=== PATIENT | female | born 1955 | race Caucasian/White ===

== ENCOUNTER 2024-05-08 08:25 | Outpatient (OUT) | payer MEDICARE, SELFPAY ==
--- NOTE | 2024-05-08 08:44 | VEIN_ITS ---
Patient Name: EMMIE PINTO MR#: [id number] : 1955 Exam Date: 05/08/2024 Ordering Doctor: DR POLY SANTIZO M.D. RADIOLOGY REPORT PROCEDURE: VC EXT VENOUS REFLUX JULY LMTD COMPARISON: None. INDICATIONS: I83.813 Pain due to varicose veins of bilateral legs TECHNIQUE: Duplex imaging of the lower extremity to assess the deep and superficial venous system for the presence of deep or superficial venous incompetence and to document the location and severity of disease. The study includes evaluation of the great saphenous vein (GSV), anterior accessory saphenous vein (AASV) and small saphenous vein (SSV). Patient scanned in reverse Trendelenburg and standing. FINDINGS: RIGHT LOWER EXTREMITY: Saphenofemoral Junction Reflux: Yes 10.1mm 2.0 sec GSV: Diam (mm) Reflux/ Time (sec) Proximal Thigh 8.4 Yes 3.6 Mid Thigh 5.5 Yes 0.5 Distal Thigh 6.0 Yes 1.1 Prox Calf 3.6 Yes 2.0 Mid Calf 3.5 Yes 1.7 Saphenopopliteal Junction Reflux: 1.5mm Yes 0.3 SSV: Proximal Calf 3.2 Yes 0.4 Mid Calf 3.6 No AASV: Proximal Thigh 6.3 Yes 1.6 Mid Thigh 3.9 Yes 1.3 Distal Thigh Thrombi: No acute or chronic thrombus. Compressibility: Normal. Flow: Minimal deep venous reflux. Preforator: Distal medial lower leg 3.3 mm with 0.3s reflux. Tech Note: Soft tissue area anterior/lateral knee in area of lump measures 1.0 x 0.9 x 0.8 cm. Fluid collection medial popliteal fossa measures 4.0 x 2.2 x 2.0 cm. Incompetent varicose vein proximal/medial lower leg measures 4.0 mm with 2.8s reflux. LEFT LOWER EXTREMITY: Saphenofemoral Junction Reflux: Yes 11.7 mm 1.1 sec GSV: Diam (mm) Reflux/Time (sec) Proximal Thigh 7.4 Yes 0.7 Mid Thigh 5.6 Yes 0.6 Distal Thigh 5.9 Yes 4.3 Prox Calf 4.8 Yes 4.9 Mid Calf 3.3 Yes 1.3 Saphenopopliteal Junction Relux: 5.6 mm Yes SSV: Proximal Calf 5.8 Yes 0.7 Mid Calf 4.0 Yes 2.2 AASV: Proximal Thigh 5.5 Yes 2.0 Mid Thigh 3.1 Yes 4.8 Distal Thigh Thrombi: No acute or chronic thrombus. Compressibility: Normal. Flow: Severe deep venous reflux. 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 Mid medial lower leg 3.4 mm with 1.0s reflux. Anterior medial knee 3.3 mm with 0.5s reflux. Tech Note: Anechoic area medial popliteal fossa measures 1.4 x 1.3 x 1.2 cm. Incompetent varicose vein anterior medial knee measures 3.6 mm with 0.6s reflux. Varicose vein mid medial thigh measures 4.2 mm with 1.7s reflux. CONCLUSION: 1. Abnormally dilated and incompetent right great saphenous and anterior accessory saphenous veins with multiple associated branch saphenous varicosities. 2. Abnormally dilated and incompetent left great saphenous, small saphenous, and anterior accessory saphenous veins with multiple so she did branch saphenous varicosities. Dictated by: Mateo Valerio M.D. on 05/08/2024 at 14:39 Approved by: Mateo Valerio M.D. on 05/08/2024 at 14:46
--- NOTE | 2024-05-08 08:44 | VEIN_ITS ---
Patient Name: EMIME PINTO MR#: [id number] : 1955 Exam Date: 05/08/2024 Ordering Doctor: DR POLY SANTIZO M.D. RADIOLOGY REPORT PROCEDURE: FACILITY [facility] - OFFICE VISIT INITIAL COMPARISON: None. PROGRESS NOTES: [age] year old female who presents with a 40 year history of dilated bulging veins, leg cramping, leg pain. The patient's right leg symptoms are worse than the left. There has been a progression of symptoms over time. This increases with prolonged leg dependency. The patient describes an improvement with rest, elevation, exercise, and support stockings. The patient denies any signs and symptoms to suggest arterial ischemia. The patient describes a family history diabetes type 2. The patient has drinking and smoking history of : Occasional alcohol consumption; no tobacco use. Patient has a past medical history significant for diabetes, migraine headaches, syncope. The patient denies a history of deep venous thrombus or pulmonary embolus. See separate history and physical for medication list. No prior treatment for varicose or spider veins. Prior treatment has consisted of use of compression stockings. After review of nurse notes, history and physical exam I discussed at length the pathophysiology of venous hypertension and possible treatments, therapies and strategies available. We discussed at length the importance of elevating the lower extremities above the level of the heart, increased physical activity and compression stocking use. Ultrasound venous reflux study performed today was discussed at length with the patient. The report demonstrates abnormally dilated and incompetent bilateral great saphenous veins, bilateral anterior accessory saphenous veins, and left small saphenous vein. Numerous bilateral abnormally dilated incompetent branch saphenous varicosities. PHYSICAL EXAM: The right leg demonstrates several varicosities, scattered spider veins, no ulceration, mild edema, no skin discoloration. The left leg demonstrates several varicosities, scattered spider veins, no ulceration, mild edema, no skin discoloration. Both thighs, legs and feet were symmetrically warm to the touch. Good posterior tibial and dorsalis pedis pulses were present bilaterally. VEIN/ Facility [facility] IMPRESSION: 1. Bilateral lower extremity venous insufficiency 2. Bilateral lower extremity varicose veins 3. Very mild bilateral lower extremity subcutaneous edema 4. No known flow significant arterial disease 5. CEAP: C2, EP, , AR PLAN: 1. Continued use of compression stockings 2. Elevated legs and increased physical activity symptomatic relief 3. Endovenous laser ablation of right great saphenous, left great saphenous, right anterior accessory saphenous, left anterior accessory saphenous, and left small saphenous veins. 4. Microfoam chemical ablation of bilateral lower extremity incompetent branch saphenous varicosities. 5. Bilateral lower extremity sclerotherapy for spider veins. Nurse notes, history and physical were reviewed and confirmed, see attached forms. The nurse was present throughout the physical exam and consultation Dictated by: Mateo Valerio M.D. on 05/08/2024 at 14:47 Approved by: Mateo Valerio M.D. on 05/08/2024 at 14:52
== END 2024-05-08 08:26 | disposition home or self-care (01) ==
LOC: VC 08:28
PROVIDERS: PCP Radiology Diagnostic Radiology; Visit Provider Radiology Diagnostic Radiology
DX: I83.813 Varicose veins of bilateral lower extremities with pain (principal)
CPT/HCPCS: 93970; G0463

== ENCOUNTER 2024-06-24 09:07 | Outpatient (OUT) | payer MEDICARE, SELFPAY ==
--- NOTE | 2024-06-24 08:00 | VEINCLINIC_ITS ---
Vital Signs 06/24/24 08:01 06/24/24 09:37 Height 4 ft 8 in Weight 56.699 kg BMI 28.0 BP 118/54 BP Location Right Brachial BP Position Sitting BP Cuff Size Adult BP Source Manual Cuff Respiration 18 Pulse 74 Pulse Source Monitor Pulse Oximetry (%) 97 Oxygen Delivery Method Room Air Varicose Veins Patient in this day for EVLT of right GSV Edson Page MD personally performed the services described in this documentation, as scribed by Ozzy Tomlin RN in my presence and it is both accurate and complete. IOzzy RN, am scribing for, and in the presence of, Dr. Edson Conner and in the presence of the patient.. knee: bilateral (Patient symptomatic varicose vein bilateral), calf: bilateral, ankle: bilateral and napoles: bilateral aching, cramping, dull and tender 8 40 years Worsened in recent months: Yes standing elevating extremities, compression stockings and exercise Reports muscle spasms of leg, heaviness and edema History of lower extremity trauma: No Superficial thrombophlebitis: No Family history of varicose veins: yes Has patient had previous lower extremity venous surgery: No Patient has previously received the following treatment(s) for lower extremity varicose veins: Reports none Does patient have a history of : yes Does patient intend to have future pregnancies: no Has patient had lower extremity venous scan with relux testing: No Support hose used: Yes Problems walking or doing physical activity: Yes How does it affect you: often has to rest and elevate legs secondary to pain Do you walk much: Yes Do you stand much: Yes Review of Systems ROS Narrative Edson Page MD personally performed the services described in this documentation, as scribed by Ozzy Tomlin RN in my presence and it is both accurate and complete. Ozzy Page RN, am scribing for, and in the presence of, Dr. Edson Conner and in the presence of the patient. Status of ROS 10 or more systems reviewed and unremark able except as noted in history and below Cardiovascular Reports: edema Integumentary/Breast Reports: itching, redness and changes in skin color Hematologic/Lymphatic Reports: easy bruising and easy bleeding [facility] Medical History (Updated 06/24/24 @ 08:22 by Ozzy Tomlin) Phlebitis of superficial vein of right lower extremity ?I80.01 - Phlebitis and thrombophlebitis of superficial vessels of right lower extremity (ICD-10) Thrombophlebitis of right saphenous vein ?I80.01 - Phlebitis and thrombophlebitis of superficial vessels of right lower extremity (ICD-10) Meniscal injury ?S83.8X9A - Sprain of other specified parts of unspecified knee, initial encounter (ICD-10) Migraine ?G43.909 - Migraine, unspecified, not intractable, without status migrainosus (ICD-10) Diabetes 1.5, managed as type 2 ?E13.9 - Other specified diabetes mellitus without complications (ICD-10) Pain due to varicose veins of both lower extremities ?I83.813 - Varicose veins of bilateral lower extremities with pain (ICD-10) Surgical History (Updated 06/24/24 @ 08:13 by Ozzy Tomlin) History of tonsillectomy and adenoidectomy ?Z90.89 - Acquired absence of other organs (ICD-10) Family History (Updated 06/24/24 @ 08:14 by Ozzy Tomlin) Sister Family history of cancer Mother Family history of diabetes mellitus Varicose veins of bilateral lower extremities with pain Social History (Updated 06/24/24 @ 08:15 by Ozzy Tomlin) Within the past year, how often did you have a drink containing alcohol: monthly or less Smoking status: Never smoker Non-prescribed substance use: denies use Meds Home Medications and Allergies Allergies Allergy/AdvReac Type Severity Reaction Status Date / Time ibuprofen Allergy Unknown Unknown Verified 06/19/24 15:59 Exam Narrative Exam Narrative: Edson Page MD personally performed the services described in this documentation, as scribed by Ozzy Tomlin RN in my presence and it is both accurate and complete. Ozzy Page RN, am scribing for, and in the presence of, Dr. Edson Conner and in the presence of the patient. Constitutional Documenting provider has reviewed patient's vital signs: yes Common normals: oriented x3 Cardio Peripheral pulses: dorsalis pedis pulses present Extremity Common normals: normal capillary refill General: edema Right lower extremity: lower leg Right lower leg: inspection and palpation Left lower extremity: lower leg Left lower leg: inspection and palpation Neuro Common normals: oriented x3 Assessment and Plan Assessment and Plan (1) Pain due to varicose veins of both lower extremities: (2) History of tonsillectomy and adenoidectomy: (3) Phlebitis of superficial vein of right lower extremity: Plan f/u evaluation along with right leg limited u/s following EVLT of right GSV IEdson MD personally performed the services described in this documentation, as scribed by Ozzy Tomlin RN in my presence and it is both accurate and complete. I, Ozzy Tomlin RN, am scribing for, and in the presence of, Dr. Edson Conner and in the presence of the patient. Procedures Procedure Instructions Procedures Plan of care: Risks and benefits of the procedure were discussed at length and informed written consent was obtained.? Time-out completed for verification of correct patient, procedure and site.? Staff present during time-out: Ozzy Tomlin RN,? Edson Conner MD, [facility] Time Out Time__958 Patient prepped and procedure performed in usual sterile fashion. Risk of injury related to use of Diode laser and/or laser devices __CR___ ? Serial number of laser used :? [id number] Control panel self test performed, electrical cords in good condition, floor is dry, basin of water available, fire extinguisher in close proximity_CR__ Polycarbonate goggles available and Laser warning signs outside of doors___CR__ Eye protection provided to patient and staff in room_CR___ Use of laser retardant drapes and dull blackened instruments as directed__CR___ Use of nonflammable prep solutions and use of saline soaked sponges to protect tissues as indicated _CR___ Length _46__ cm Laser operated by _Dr. Conner____ Physician verbal confirmation laser locked in place__CR__ Laser start time (date and time) _06/24/2024@_1012____ Laser stop time(date and time) __06/24/2024@_1017___ Velazquez _8.0___ Average laser use __2049__Joules Average laser use_256___seconds Pulse continuous ___CR_? Pulse intermittent ___ Amount of Tumescent used _175cc___ Evaluated patient for signs and symptoms of electrical injury __CR___ Skin clear at insertion site __CR___ Patient tolerated procedure well.? Left leg Coban dressing applied to access site.? Applied Left thigh high leg compression stocking. Will return on 07/01/2024 for right leg limited venous ultrasound and exam. IEdson MD personally performed the services described in this documentation, as scribed by Ozzy Tomlin RN in my presence and it is both accurate and complete. I, Ozzy Tomlin RN, am scribing for, and in the presence of, Dr. Edson Conner and in the presence of the patient.
[2024-06-24 08:01] VITALS: BMI 28.0
--- NOTE | 2024-06-24 08:19 | W.VEIN ---
Discharge Plan Discharge Disposition: Home, Self-Care Outpatient Diagnostics: VC Facility EST LMTD (Routine) Timeframe: 2 Weeks Facility: [facility] - Location: Vein Center Ordered By: Edson Conner VC EXT Venous RT LMTD (Routine) Timeframe: 2 Weeks Facility: [facility] - Location: Vein Center Ordered By: Edson Conner Follow Up Appointments: 07/01/2024@0930 Plan of Treatment: f/u evaluation along with right leg liimited u/s Print Language: Chadian Discharge Date/Time: 06/24/24 09:46
--- NOTE | 2024-06-24 09:10 | VEIN_ITS ---
The [address] [address] Patient Name: EMMIE PINTO MRN: [id number] date: 1955 Sex: F Assigned Patient Location: Current Patient Location: Accession/Order Number: [id number] Exam Date: 06/24/2024 09:20 Report Date: 06/24/2024 10:42 At the request of: POLY SANTIZO Procedure: VC Endovenous Ablation 1VeinRT EXAMINATION: VC Endovenous Ablation 1Vein, right great saphenous vein HISTORY: I83.813 Painful varicose veins COMPARISON: No relevant comparison available. TECHNIQUE: The risks and benefits of the procedure had been previously discussed, and were rediscussed at length. Informed written consent was obtained. Laura Mcqueen and Ozzy Tomlin assisted. Time out procedure was performed. The right lower extremity was prepared and draped in the usual sterile fashion to allow knee flexion in the sterile field. Duplex ultrasound probe was draped in a sterile cover, sterile transmission gel was used. Venous mapping was performed with the areas of dilation and large tributaries marked. The total length was 46 cm from the entry 8 cm above the medial malleolus to 3 cm below the saphenofemoral junction. The diameter of the greater saphenous vein ranged from 5-9 mm. A 30 gauge needle and 1% buffered lidocaine was used to anesthetize the entry site. A 4 mm incision was made with a scalpel and the saphenous vein was entered percutaneously under direct ultrasound guidance with a micropuncture set, a single stick was successful in gaining access. A micro-guide wire was inserted and the needle removed. A micro-set including a dilator was inserted over the microwire and the needle and dilator were removed. A 0.018 guide wire was inserted through the micro-set and threaded through the saphenous vein to the saphenofemoral junction. The dilator was removed and an introducer sheath was inserted over the wire until the end of the sheath entered the saphenofemoral junction. The dilator and wire were removed and the 600 micron fiber was introduced and placed and positioned so that it extended beyond the sheath and was 3 cm peripheral to the saphenofemoral femoral junction. Final position of the fiber was determined by ultrasound guidance and duplex imaging. Tumescent anesthetic was delivered by ultrasound guidance. 175 cc of fluid was delivered along the entire course of the saphenous vein. The solution consisted of 1000 cc of normal saline with 40 mL of 1% lidocaine and 20 mL of sodium bicarbonate. A final positioning check was made. The energy source was turned on by means of the foot pedal and the fiber and sheath were withdrawn. The total number of Joules delivered was 2049. The laser was active for 256 seconds under continuous pulse, average laser use of 8 J. Laser start time 10:12 AM 06/24/2024 . Laser stop time 10:17 AM 06/24/2024 . A duplex ultrasound revealed compressibility and flow at the saphenofemoral junction immediately after the procedure. Hemostasis at the access site was achieved. The skin incision of the saphenous vein was closed with a 4 x 4. A compression stocking was applied. Postop instructions were given. A follow up appointment was recommended and scheduled. The patient tolerated the procedure well and was discharged in good condition . VEIN/VC Endovenous Ablation 1VeinRT IMPRESSION: Technically successful endovenous laser ablation of the right great saphenous vein Electronically authenticated by: POLY SANTIZO Date: 06/24/2024 10:42
--- OUTSIDE RECORDS SUMMARY | 2024-06-24 09:23 | XMS_ITS | CCD ---
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 Measurements this Visit (last charted value for your 07/09/2023 visit) Vital Signs This Visit Temperature Oral: 36.8 DegC Peripheral Pulse Rate: 82 bpm Respiratory Rate: 18 br/min Systolic Blood Pressure: 140 mmHg Diastolic Blood Pressure: 80 mmHg SpO2: 96 % Oxygen Therapy: Room air Blood Pressure Method: Automatic Measurements This Visit Weight Measured: 58.97 kg Problems List: Problem Onset Comments Asthma Migraine Patient Education Bee, Wasp, or Hornet Sting, Adult Bees, wasps, and hornets are part of a family of insects that can sting people. These stings can cause pain and inflammation, but they are usually not serious. However, some p (more content not included)... Normal [facility] US PVR Lower EXT Complete Bi laton 06-07-2023 US PVR Lower EXT Complete Bilat Exam Date/Time: 06/06/2023 08:14 EDT Reason for Exam: I73.89 E11.9 G62.89 N79.671 Report IMPRESSION: NO EVIDENCE OF SIGNIFICANT ARTERIAL STENOTIC DISEASE INVOLVING THE RIGHT AND LEFT LEGS. CLINICAL HISTORY: I73.89 E11.9 G62.89 N79.671. COMPARISON: None available. FINDINGS: On the right, the brachial systolic pressure is 136 , the high thigh pressure is 184 , the low thigh pressure is 181 , the calf pressure is 148 , the posterior tibial ankle pressure is 155 , the dorsalis pedis ankle pressure is 144 , and the digit pressure is 127 . The high thigh-brachial index is 1.35. The ankle-brachial index at the posterior tibial artery is 1.14 The dorsalis pedis-brachial index is 1.06. The toe-brachial index is 0.93, with normal 0.7 or greater. The plethysmography waveforms are normal. On the left, the brachial systolic pressure is 128 , the high thigh pressure is 146 , the low thigh pressure is 160 , the calf pressure is 146 , the posterior tibial ankle pressure is 132 , the dorsalis pedis ankle pressure is 157 , and the digit pressure is 114 . The high thigh-brachial index is 1.07. The ankle-brachial index at the posterior tibial artery is 0.97 The dorsalis pedis to brachial index is 1.15, with normal 1.0 or greater. The toe-brachial index is 0.84, with normal 0.7 or greater. Report The plethysmography waveforms are normal. Ordering Provider: JESSE CONRAD FINAL REPORT Dictated: 06/07/2023 3:04 pm Arturo Higgins MD Signed (Electronic Signature): 06/07/2023 3:04 pm Signed by: Arturo Higgins MD Transcribed by: CHAUNCEY Technologist: HUGH Normal [facility] Consent for Treatmenton Consent for Treatment [id number] D:127 Normal [facility] Physician Orderon 05-29-2023 Physician Order [id number]#[id number] D:[address] [facility] Coding Summaryon 02-07-2023 Coding Summary HTMLBase 64 LgffdlgwYSi1xWp+PGhlYWQ +ZA7SFSViH65eaVOtkL9PQ3 oGBU4XFCORMIWCOQ2APO5zv OE0FKusH4HsodUg PewefAGoIA33WZy8JXM1eTs dWMkdpD1ziBRvS6v0YoEjEG 06sW61GMtnALTyQqP2CnLeq jsgbWFy K1rlGyRtxDCsRuz+PHRhYmx lIHdpZHRoPScxMDAlJyBzdH hoOF5kLf6pRGIeDHUyyEjpm HNlOiBj r7rnJFJySUlaFU0ltAsyA5D uzUS2DUSuf4j9Ht51hEA+PH UaUSG5aYupSOrjp050EgNuo 6odEEN0 hZWlAUwbATA2T01af2P9DRC qUQDxBJG2qNQ2uY1xmDqxgh usO7RfkQXpFxL9GLU6iIXlw B2tbDyv afrarR2vIgh+B28CHX4GKQK ORH0QDbu8D7DyMwixoFX+PC 65LNEmSU01hRVuaJQfo8owr Db3HcXh JQRzTDQ6ePslABtjf7OhFDW iQ58ujIAeg8U3QJItlSsahG OnScDqpKA0gX8rOHkuhvffd 2hvdzsn Gedzl2wqtw51bH05Y82bDWo gOPZxFQW6LCLmNNRnlSwnfr 3nvM1mIa7+LAnev2nwf4zdj Ky6FkHu LFMqfuQbbJluDFO5b5SbPi1 3X8AyoHqwv0YiKpz1py45mB Uou5R8pBI7XBlcRMHvoN7cY WxlZnQ6 SFVxKiQevA28rIKgGCsyFi3 pfRdfuLnsUY6lXLOujkyxNA YntV3pYFCfnGLpfWjdON6uH TBpbjtm h829VvVqZYL0GSNtyJGkI0S ajY4sQrHzNZDnIBUiD2AyeH JcRLoiJ727RCyvOlJ6JCAaq nNjB4Yf VUKzpYmdKhX4n5L5Qq4Sx4J xqavxVKQ6VTueWCPyOrU4Vv BhOxE1D4ClFpw3HVOdnUscV S5sW3Ws DWUamitupunjpIF4VZCgRCR yfQ99wVBuPFbpBq8es5Y6k1 38BDAjBTSnuE39Oa6gcTpvP TBwdCBU lH6qkujli0sdsdjfDaSiEIN vHVh1CXn1GJDupThwAkFsJO I6LjN7WIP9uTPejX8fgIeqg qnroV5q Oyc+B91xbF6lFRA8VFA7glj pBKAskrRiXC61YM66S6OqOm wvdGFibGU+PGRpdiBzdHlsZ F1uJtHg c5ecx8KiSVyuG7XsNPYfCZu iQei7PZTwUSP9yZM5cY2hUD IhKJykl3Y4gYP4B6PgurCjm w2tz8yw FJUgLXlbV36ltKBxk8I5EMS iwZG4ZOTrdCzvPyBheX99Qj c+AAYmkZfny2EuGafwj6qbb 0ujjBx2 OnGbHVUtiqIhuJkrNFD5n1Z lAa83L88hXLklIMKnTMPfNA CzZLQdkKpkgc0isU2pYa4+P GNvbCB3 jXI5aJ3zXUTuVnE7QVquH12 5NrCphKJhTwcft0rrs4xfoB m5MzRlIGOaakAqnLnhGIV9h 8RsNb04 S24bERwfWPWgOMRrXPPqQLG grSztdp8zjX8gTa3+PC9jb2 hfkf93iX00yHF+JSYdGPA4w WxlPSdw IMZroC7qPFboVbV9NENgWpW rqQ32zHYtIZwbQg0xuVtsuQ dfRW9mSISylqqqy326LqTub 2xkIDEw zTJpTRvnGUP8Q74sa6W9PTA jWDKtMPD7yZY8mH1fzLwqan ogbGVmdDsgdmVydGljYWwtY HtiZ426 IHRvcDsnPlBhdGllbnQgTmF bULs0H6CtRnj2KKXznSkgWI 1aoXHvUZcxSl4moPemeGhyQ T4gNLKv ldftm352VrOuf4mfBARybOX wYLecJUK4L03ew0L3DGSgUL AtVNV3uUX8iV6vkIsyhjegx GVmdDsg fzGvcBfsXStsJMafJ548KGU uaCypXeQrirNeUJXsfNX9OZ 41HN60wPZzz7N6oXO7B5RqZ GRpbmct cvjfzQZ7HIAfNLErxU17Fk0 gxAnbIz8tTUEgCPA0FDXriW MnO5YvrG2fYfWyGEMuZCLjE 3RleHQt NVztQ998IQqcVhC0KPPcsqX bA8XtXTEuyWbjNeQ1p1D3Xd 4QT8S6BR74CU15xAVhz8Y1p LJ8Z9Ab UTGoozcfkgvwnUJ3FUGpUFV doR13Rj0feZouKd6oPWQoGP H7WHShpCQhF7YpiO7pCrSpK DAwMDAw F8DerVOaSEgfK839SQquGvN 5RHFzmlZeG6NdNSTrqKxmEr P5o8K9Zr7CPJs4VQ46UG58o QHju5I6 mYY4A5ShPBApvztoqgutxFL 5YCDiMCDtwW84Ox6cwVenVf 4sFEPwEVE4SPLsqLEjM3Sdl V6cUgEy YFTqIIPiA4FosRPcRZonP12 5VVqoHgT8UGLjfvOsX3HfMA OhbWzyHmU3e3O5Xd6LVKBbX E09KTS0 vZW8RR64DC08E9YsIbrzrMZ ibGU+PHRhYmxlIHdpZHRoPS hyNQJbLnNkcLdwDJ4yGd6wD GVyLWNv iUobqZDzQrRob5xuMFJnVVs bEB4hiPlpE4KysDV5SUYhb9 e7Ls76G24aB9VzdRP+PGNvb PU4dBX1 hG0uRtAnBnP6EExwS774GgY zdWCqTcdbz5ciq5gdbYs4Uo Q4NBWxhpDhaLorQLR8m5MrI x29R42o IHdpZHRoPSIxNSUiIHZhbGl ysk6hvP3aNc4+TUVffAX1bT I1fO4gCfVjDlR8NLaxN398E nRvcCIv Xkcek5jox2cpzId2NdDuPIP qgkPzuOncFXW8p9ZnIq78V6 AjhRwvh5MsTor5yx22vOJqo 1B1kPW9 L3YjPICdkkjypDVmpLccAO6 eGRWhevtdXVGmzM4eRYJzB1 v0NdVyAdC6XEagZ4CtguB0M DEwcHQg XJqhLZK8E46uy6D2UNWtKBI dXXL3vDN7eV4muZuhjsjctN VmdDsgdmVydGljYWwtYWxpZ 246IHRv kEjsJJXdvA3kTJEthELblBy fMW3iNUExnfjzScyGH5VSZg LSOXJLGULTG0EaDLbfwDO+P HRkIHN0 vSozIUnkLMLkaR2sDZHaO3n 9WeOtPxF5CZayH5PpJRMfiv vgYq05vH0pMzFnClM6PDnxB 5DbohO3 QUOddDRaKMfoHBP8H66la2D 1OPDcPVNhINU6dMU3xH4ibU lnbjogbGVmdDsgdmVydGljY WwtYWxp Y332RGQemOutUkFbPuG4SqB 1HTZ1R2XtGie6JKLykAikRB 8vdNHjRDmkQn5suKprbNabL G7tTPZy ccbaMIWhkR6dUQBwyBJpcBz lKA0eSQGszvtwz929TuNjAC S1TDQyjLOdZ2XwsI1gFuEvK DAwMDAw Y6OxrFArGDysM626NUwcNcD 8BSSmgiTcM1KvGXNilOvkJs U2f1I0Od72GjOSVARleqcuz GQ+PHRk QEF3zCbkPAlwARJvsM0dSHD gF0k7TzVeAvL9QWacN1InWM EzryauQr16gN7pTiPjRcE3Y OboE7Cp xuW8JOEkzQXoWEogYZS2I83 xp6I2JEEnITPfVKF3yIM0vY 1hbGlnbjogbGVmdDsgdmVyd GljYWwt QEfqC772XHZdkCgsGjPYMBN MRTwvdGQ+KHEtZBG1zDavDR kpQQXdmK1hOYStP3y4RhJxP jN6ZWnm P5OqZDBcgnleHn01sV2vGhG mLsR5FEmzQ6NlayS6NSVizE EyQLldYUU3B76jk9H8DOKhH DAwMDA7 bTT4qK6mwBbdbylqqUPwzMf bagKgfPttPHglZHkcQ821VH RugSbvYa6OHK77NG85J7HwS jwvdGFi bGU+PHRhYmxlIHdpZHRoPSc eMHQaRcVnoDutSZ0gQi9mIO OkWFMzzLimzYWiFlYkq1hhY XBzZTsg WA5arAlwL0VxlPN9FITis5h 8Er25R91oZ7RltHV+PGNvbC Z3bXM8nR9rUlPvCkU0EBiuK 249InRv cLHkQnorq3nog1goyRd9XuP kHFAdbkErnHtgETY8p4BjUl 85I55qXQzvBMUeDZKiLFLqS HZhbGln xo9oxL9eZv5+BSIpdXW3rWO 3mD4oLnWhHvL4NWpfD931Jb WvaREvExitX81aG3EgoHO+P HRyPjx0 QIWpsGswKW2izTPaHJfqPo6 nMYZ0RgNzJjFqMTxtU0HyJI XyshedadkluTX7XOBjUVXln A85Gd8k wRqjQo6wGDBvAFJ6ULAwfCA hT9HgbH9jDcLxEAEfRLYhK9 GmtHKsJCzlS713OXziFqW9Z HZlcnRp W2TmGJTunGjmNkL0l7R3Wn2 MwGnxpTHpJT8bXsUmZAc8O2 DaSob7JFTbbLcvMS7niHIlJ AfcFt6b rAbigFtkPP9eKQCgkjdna31 1EbGiw4jtTGXwnUKjOChuJF T0G20mg4C7RMSfODFhJLQ3q QS3uN2e bGlnbjogbGVmdDsgdmVydGl eNQddFUhfF834DPQjoBrkMh GLPna4Z0AkBbw9IFAjiCesZ K7leANe XIzjIc2fuIamrLukHE0lOLV tmzcil090QpBsv8ckXDZmcZ AnTZqsAPD8I19uz3F6ZQZgG DAwMDA7 mXQ7rL9vkRwibniktENlxNx ivfYniGdxXRkpDOoxI769XA NqjUbuZh4YHjb3N1OvIym8K CBzdHls CF0kuYOfWLzqKv3quQsgoWg fIK6rMRJrrmebm345ZmKct4 anOKZcqUGlMGhaMZQ1J66tv 3H1QEBi HMDhXLH7lLC3jU3orIqhquu gbGVmdDsgdmVydGljYWwtYW ukF215XFCxrGtdZkFooQFfG jwvdGQ+ UE66dv19P6PlVmdyQle5MYJ jNKK3iZP5kL1dSHRfSKdxp0 I4bNZ8D9VinrKnhi0zf0aqJ XBzZTog Y29 (more content not included)... [facility] Coding Summaryon 02-04-2023 Coding Summary HTMLBase 64 WfmbcgqlKMs5pFl+PGhlYWQ +JV7WZWYcY10ayIKqkS3BN5 wHFP1MWMCCQNVXWD6XAJ2am AJ5MPocT4FgbgRs EtfwfTLkVD14CUx3FFD6uBc gXYwzmY1ynLCqG5w3HjIfKU 36bX44GVvcGWFtQqP3GgPag jsgbWFy F7qeGfFwvGQyHka+PHRhYmx lIHdpZHRoPScxMDAlJyBzdH skVM3rFs0eEYJxHSQsaUpjq HNlOiBj y9wnSGEcGGkxED0vhAekM6C yvJB1LKHxo1y8He91aSV+PH KzSUG9gKwxBBhpq779KpLgd 3yzZKL7 jPBjRPafUTP6X42sb0L3TNI hYTJuAHH2vQP4hZ5jeSwmll lmL4TjpRZeErV9AKL8qWQjq D5igVjj eyrkhU1jGnf+V49LUH6SMJM CKH3EAzi0D2UtSfxzfJS+PC 68NABoXM09wITwzMWzb7aeq Tj6VcBh PPCnLDA2lSnwUPmzg3SgGTM tM45exPJrl4U6VJClqMxoxW AjJvUagDJ7pI7iXUuqfijym 2hvdzsn Twioq8nagd45tN96X53bPOa tOFBwODL7YSGfKMXrhQmdqr 4ptA4yZj3+KPobw0evo6nre Un8SpYz LJWwmoTdxPdiZBV7p1CaQe7 3G0SxkVkro0EfWoi6zj44pT Rjd3X8qOA9PBytUYWizW6xX WxlZnQ6 ZSZwOkBzaW23eHYmRYxmMg4 niUxqkGfgPH9wEBIiiwtrYQ NnyP2xSYAgfYIdxTvqZT6vV TBpbjtm i494LwBgYGT2GLUwySFtO1H pvL3vYaPdJBUwEXNuO7IlqP WyKSqeO496NGunMyJ0HRVot wLbW8Cz VOEbvBmvGcL8y9G6Of9Bk0D bkssyFBI2MQadYWXxJjL3Tv BvVyE2Z4OhIgx2ZDFnoCilE F4xQ6Tq PVAlzxnsjuiujDK2GZAjKTP liO63sBSoWZofUy4gk9S7z3 88NRXrIMHemS10Ea5seDxpC TBwdCBU kS0fwhgfy0awbhqaQhYaWXV bFLw3UIq6GPReyOcnDbMtBX F4AfU6GPD9eLSsgU4imCivn jirzD1k Oyc+T04xiZ6kCGU9FEF2tnx fMIGslqYqHG95NF89Q2MjEa wvdGFibGU+PGRpdiBzdHlsZ P2vJwTu g4zya8QdRTopI9JsCDByUQc lLpc6CVPsAXF6mSI7gM0oHW YxIPbml4V6tUD7S6YxncBgu i8wu5yk HFRgRHwmB02lfHKfu8P6XNC poLH0ZFNghHidTkHgkI11Lf c+CYMbeHwco3ViJfkgu3hdc 7syuMd8 PgGvVKUbbkPwlThfEKF6e0J iKw01X30oKNczJFAePKHrGI IgGRZmzLxbjh0wxT7bBr3+P GNvbCB3 xWH6sA9lLIJyXrT9ACddU66 9PpNugMCyVvwms0ude8edaH z4ZxPgXBClryJriLpiPTE2f 8IrOl87 S65lUVdyAKFdTAVvGHBhPUQ xzHnodn4ubU0sYq1+PC9jb2 aqpj83vE79fAI+QWBxRCK3i WxlPSdw WASlfX4hNGkgRiD0PMGpSeP iqO11aYDaTDhiHf1kwBdwfY btAT0uRIUezewds622MtPsx 2xkIDEw xZPmNWotDTK5M22ds5R7ESK oJDUaHBZ5lYX9jU0afXuczz ogbGVmdDsgdmVydGljYWwtY IlmL895 IHRvcDsnPlBhdGllbnQgTmF dTTs4H9AgRst7PRJqpUdvJT 3ylOJwROwjRu5ruYgshGcaL T9aMFPj mcuzm322GpGlf6jkNWZgkOR yUTqbYVC0G64dg6S7WIJbKI AaPCX0eRO0oN4gwNjxihtdy GVmdDsg jkEmyYokTGpvOMjzK276ALJ roFjpTbWgvhFzBVFwmOZ2EN 15BW92yPCzt3F5xYZ0U7YdL GRpbmct qubmbCX3BBIsKXNblM76Mf6 wuPauMc5uKGMnWHH6WHUoyT TsJ5NreJ2wFsSpACDhPBIzG 3RleHQt PFgzQ201HUdaWoB1WIPxmkX uE9UcLOKdhSfwBmF8a7Q4Sq 4MB0C4FO49GH69aGTll6S5r HX4Q5Fd UDNfskvyjllwhOD3CAWzKES yhX71Mb1epUvrCk6bRGJrUR H1IVJwgVYfB9YnwA7oZyLqO DAwMDAw J7RngKCuVZlsU134FGnoAhH 6KPPeozEcA1IcCNPgwBdgLu Z5s2J9Zz9PBJb9PL20GA79v BTur2A9 uAR1O9NeLWKifnmzgxmvvUB 8AFXmGRQdgU11Wl2gpHjfEl 2oEFMwCTP0DQFszJOvF0Rsq P0wHwPg ZRKvQNQxU4WzkAYyNWwsB77 5YUsbFoF2XYYxmcZuV4FhSX JjaQeiTtQ1n8I0Pb3CXHLuF C83LWM4 iFJ9ZS95TE18V4VcRaixaHB ibGU+PHRhYmxlIHdpZHRoPS zbMZSxNiLjtXiaSM7wSu5cM GVyLWNv eBaoaQHsHxOvh0ldWQEeMEl eOI3ehJfiW1VtuKW5CIMoa2 t8Fv41W98qD6RgoKN+PGNvb GK0zLL7 fL3aSfFjSfB3DRexF178RwC kbBPaGqmly6vho5iwkFu9Kq W9QPIgksAnlDmaFMT2o4JjU w24N99o IHdpZHRoPSIxNSUiIHZhbGl hhv9xrW8gPw9+CGUnfUW8zP E8cZ2eJeVaRyR6LDjlG089T nRvcCIv Wgtlz4wdc6grtCj5YoQeBTN snbEngPtgWDP2g0EcKh22G0 DrbWfmv5JxWfh9od63qXPff 0R3kMB0 G3OkCCOildovpCHhyJsgPQ9 nJPKhwkmvMFMkmP6hAPPsT0 a3RbOxSdG6ZExgQ7MwvvV6L DEwcHQg RYuvNGK0Z48iw0G3KAKiXZR pNVM5fLM7dV9uuGvgqlibrZ VmdDsgdmVydGljYWwtYWxpZ 246IHRv rYnjGFEuoB4oOJJfkPDopEr mKF9dQYCzbgblOrrWC3TKCl LNNGQKVIKBF4UyQPnnzIS+P HRkIHN0 qGrhWBvvEKUzgS9mHDRvS7b 5EkIiScD7IVtnL7WxYTBsxb twLl38pB0pJbViMkJ5PVvmH 5VtvdH8 UHMdiURvSFuqRJF1P93mp3R 6ZEQeMESoBWC0cMD7gD6woF lnbjogbGVmdDsgdmVydGljY WwtYWxp T378INYolPonFlGwYaA2JkP 6IGQ0D2RwDhg8IYMkgHnoQO 3lcLFoKRwbVb0qzOxqdTzsT S5sRBYq ybriOMNviM5wQJGwoHRkiNd zOZ2uZYOvbuqio673JkJaDN N1WEZtsPRoP2NxnF0cUnPiC DAwMDAw L8YkgCHfMSpvG533JJjfZjM 0OPMxenGfM7WwYIYtnAdyTu K9u5V4Jb17ZtSTWAUdeiezz GQ+PHRk MJV4bDqkLMwkHANtaO3lWXE rV5m4MfQfSaU7OKkhA5RrIP AapdgjKu79bG6eAsPzCkO9J HdcQ8Rw yvB5WOYhkFAuOMesZSI2R77 si3Z4KUJlLGOdUHM4mHW2nG 1hbGlnbjogbGVmdDsgdmVyd GljYWwt TGfbR395LWVyjHsrKsROZLF MRTwvdGQ+IFDsQPB4hBoyFZ zlWCSyjC3hIMRkD6z2XsHtB sE4BGzr R8ZmGQRngcuzJk91nS4eBqE fXmJ2RIohL9DjepI9VPWxoW KaKVihYWU4B68eq5F2DEPwF DAwMDA7 dDT5vH4viHgdkdjqwNYxiNi pzsIypRsvINrpVWkeB012GY RrqBdxKp7PHK82PW19F3RcT jwvdGFi bGU+PHRhYmxlIHdpZHRoPSc tQWLeSmJicOztZE7rDw2sCL AzLAMciLxjtZOfNkZbv8qgM XBzZTsg EO6dwWscG9CybVF6XYMla4m 1Sp08H45kT0WrjCM+PGNvbC R7iGN1hP6fDxDqVxX4OFpsY 249InRv rPOoKqtxi0qfe9cicPp0JnG kATYrmuDpqGydAPQ3o5LlZt 70B08lXDkuUTRkYTAtCFJaB HZhbGln dr0xzE1zNk6+EWYujOL0cER 3pV2iYkWwUtZ9BZamT067Oe UaqDViZshkG03wX7CfhPQ+P HRyPjx0 JPIvsLnlNL0ggXScMUpaAh2 uSBQ3DtOtZpFpIGjdV3CoIU WucwefkadlbPV2ZUZdYQBug E14Ox2p hQhfYw1bRCJqPVJ1MHCegHU zB9FpiW0pYnZqVHTaFUBeW4 KkqBMsJGuvO361XDvmFcM0V HZlcnRp B8BeVLJuiLgpZyG3f5E9Nh6 DuEsaaKJzOW9lCrEzIQf7O0 KzPpt5GTLjcLrvLE6ldLZxZ PcuDu9i wSqrdHzdET2dHKSkxhpad69 3PyTkz4bvXUSdcDCzJDgoDR Z6B46df4W8ESGnRPHmJKH9d BL4cW9p bGlnbjogbGVmdDsgdmVydGl wNRtuBXbwS289GCMpnVkhMf HFEdl0I7IhCjq3EIJohEajN Y0iaOEc PDnrDw2zvRshcRwfNH6zOEG niorno255XdEvw1egLRKyqZ GdUWkeCHD1N62bq1R7FCIfA DAwMDA7 aOT6kG3rxUdaewbqwYIgdIo darCxyTzfSPxbGIreL376OE DflRmaOr4JVqa1H7EqNgq3F CBzdHls HV1pwWDgCFvvIe5enSjppZs eMR3hKLJnysyvv139XhBcc4 esXVLboKQeTRhhRZE1O01th 0T0UAVb YAUoLEN2hOA2lO2utLjidbp gbGVmdDsgdmVydGljYWwtYW esJ644VWSyrIaeWpOneLZyG jwvdGQ+ WJ02ax47H4ZkCytwQck8NLZ cSHI3xXV9wU7yXQXzAPsoz0 U3bZA1I6DtloExmy1td0fgP XBzZTog Y29 (more content not included)... Normal [facility] C Urineon 02-02-2023 C Urine Urine Culture ordere d as a result of parameters set on specific urine dip and urine microsopic results. >3 Organisms Consistent with Contamination Recollection suggested. [facility] Comment on above: Performed By: #### [id number] ####[facility] (DEFAULT)[address] [place] [id number] Provider Orderson 02-01-2023 Provider Orders [id number] TGTIFF Normal [facility] .Auto Diff 1on 01-31-2023 Auto [place] % 8 % Normal -12 [facility] Comment on above: Performed By: #### 1 [id number], 6507175, 4821407, 1001399, 61836533, 5914904, 0325561 ####[facility] (DEFAULT)[address] [place] [address] 59958 Baso Abs# 0.0 x10 Normal 0.0-0.2 [facility] Comment on above: Performed By: #### 1 4544794, 0631469, 8306308, 2345411, 64695796, 1439185, 2770358 ####[facility] (DEFAULT)[address] [place] [address] 67115 Basophils/100 WBC (Bld) 0.6 % Normal 0.2-2.0 [facility] Comment on above: Performed By: #### 1 1288769, 5299008, 6969044, 7144977, 95596783, 6199457, 1427329 ####[facility] (DEFAULT)[address] [place] [address] Eos Abs# 0.1 x10 Normal 0.0-0.4 [facility] Comment on above: Performed By: #### 1 4106192, 1872044, 5440766, 2825830, 37170331, 5318418, 9166007 ####[facility] (DEFAULT)[address] [place] [address] Eosinophils/100 WBC (Bld) 1.8 % Normal 0.9-4.0 [facility] Comment on above: Performed By: #### 1 9489969, 4716725, 3969941, 5259368, 83614270, 4304155, 4328739 ####[facility] (DEFAULT)[address] [place] [address] Lymph Abs# 2.0 x10 Normal 1.3-2.9 [facility] Comment on above: Performed By: #### 1 4465344, 9786550, 3665566, 6987634, 12400596, 7180423, 5401307 ####[facility] (DEFAULT)[address] [place] [address] Lymphocytes/100 WBC (Bld) 37 % Normal 14-48 [facility] Comment on above: Performed By: #### 1 5934669, 7735576, 5577964, 8464281, 87379330, 3965778, 2383534 ####[facility] (DEFAULT)[address] [place] [address] [place] Abs# 0.4 x10 Normal 0.0-0.8 [facility] Comment on above: Performed By: #### 1 2613270, 3018640, 2326475, 4254174, 09026356, 6279620, 7348850 ####[facility] (DEFAULT)[address] [place] [address] Neut Abs# 3.0 x10 Normal 1.5-9.2 [facility] Comment on above: Performed By: #### 1 3393108, 0484538, 7492360, 5836169, 61335369, 4907348, 4694596 ####[facility] (DEFAULT)[address] [place] [address] Neutrophils/100 WBC (Bld) 53 % Normal 44-88 [facility] Comment on above: Performed By: #### 1 2717561, 4378912, 5964634, 8997917, 57533804, 9491856, 0447444 ####[facility] (DEFAULT)[address] [place] [address] CBC w/ Auto Diffon 3 Erythrocyte distribution width (RBC) [Ratio] 13.0 % Normal 11.5-15.0 [facility] Comment on above: Performed By: #### 1 3891922, 5300503, 1873934, 2836348, 98243357, 0605426, 5261247 ####[facility] (DEFAULT)[address] [place] [address] Hematocrit (Bld) [Volume fraction] 39.5 % Normal 33.7-40.4 [facility] Comment on above: Performed By: #### 1 3902620, 8034547, 0907911, 1064871, 79710084, 2361206, 6080610 ####[facility] (DEFAULT)[address] [place] [address] Hemoglobin (Bld) [Mass/Vol] 13.4 g/dL Normal 11.3-15.9 [facility] Comment on above: Performed By: #### 1 8014476, 0356557, 5779765, 0913077, 32626224, 7867706, 6592035 ####[facility] (DEFAULT)[address] [place] [address] Man Diff? Auto Invalid Interpretation Code [facility] Comment on above: Performed By: #### 1 2696255, 5920567, 1278972, 3333692, 58244633, 6599369, 1447526 ####[facility] (DEFAULT)[address] [place] [address] MCH (RBC) [Entitic mass] 32 pg Normal 24-34 [facility] Comment on above: Performed By: #### 1 8141468, 9670464, 6902128, 5173040, 15172842, 4272007, 3511426 ####[facility] (DEFAULT)[address] [place] [address] MCHC (RBC) [Mass/Vol] 34 g/dL Normal 26-37 [facility] Comment on above: Performed By: #### 1 3812865, 8240206, 2774026, 3600631, 05801458, 6233239, 4609814 ####[facility] (DEFAULT)[address] [place] [address] MCV (RBC) [Entitic vol] 95 fL Normal 81-100 [facility] Comment on above: Performed By: #### 1 2298355, 6231412, 7361016, 9328356, 11947019, 8685358, 8190237 ####[facility] (DEFAULT)[address] [place] [address] Platelet 252 x10 Normal 138-427 [facility] Comment on above: Performed By: #### 1 8878227, 0052098, 3419683, 9754451, 94943713, 9980864, 8209423 ####[facility] (DEFAULT)[address] [place] [address] Platelet mean volume (Bld) [Entitic vol] 7.5 fL Normal 6.3-10.2 [facility] Comment on above: Performed By: #### 1 5955383, 6059102, 8708378, 9600661, 49131265, 8767089, 9144534 ####[facility] (DEFAULT)[address] [place] [address] RBC 4.18 x10 Normal 3.70-5.30 [facility] Comment on above: Performed By: #### 1 7946972, 4250246, 9031067, 7263730, 64170563, 9864746, 0321815 ####[facility] (DEFAULT)[address] [place] [address] WBC 5.6 x10 Normal 3.5-10.5 [facility] Comment on above: Performed By: #### 1 5439022, 9953209, 0921623, 3509215, 25148961, 6256379, 3641161 ####[facility] (DEFAULT)[address] [place] [address] ED Clinical Summaryon 2022 ED Clinical Summary [facility] ? [facility] Care [address] [place] [address] Clinical Summary PERSON INFORMATION Name: CHANTELLE PINTO Age: 68 Years Sex: FEMALE : 1955 MRN: Acct#: Visit Reason: UC - Sinus Pain or Congestion; UC - Sinus Pain or Congestion; SINUS DRAINAGE, CONGESTION Arrival: 01/31/2023 17:31:19 Discharge: 01/31/2023 18:41:00 LOS: 000 01:10 Check In: 01/31/2023 17:31:19 Checkout: 01/31/2023 18:41:00 Address: [address] [place] [address] PCP: Luis lAfredo Grande PROVIDER INFORMATION Provider Role Assigned Unassigned Josiane Haddad CABLE SPOOLER Nurse 01/31/2023 17:34:23 Deuce Hernandez ED PA 01/31/2023 17:36:10 VITALS INFORMATION Vital Sign Triage Latest Temperature Tympanic Temperature Temporal Artery Pulse Rate O2 Sat 96 % 96 % Respiratory Rate Blood Pressure /78 mmHg /78 mmHg MEDICAL INFORMATION Medications Given: Allergy Information: LORazepam; Amoxil PHYSICIAN DOCUMENTATION DISCHARGE INFORMATION: Discharge Disposition: Home Discharge Location: Home PATIENT EDUCATION INFORMATION Instructions: Sinusitis, Adult, Cqgn-[id number]; Otitis Media, Pediatric, Mhsz-yw-Tgti Follow-Up: With: Address: When: Luis Alfredo Grande [address] [place] [address], [address] [place] [phone] Business (1) Comments: Azithromycin as an antibiotic to 2 tabs day 1, then 1 tab daily thereafter until gone Nasacort nasal spray has been provided for you use 1 spray each nostril daily Follow-up with primary care provider in 3-5 days sooner if worse. DIAGNOSIS: Right otitis media; Sinus congestion Patient Understands: Yes - Patient/family/caregive r verbalizes understanding of instructions given Comment: Normal [facility] ED Patient Summaryon 023 ED Patient Summary [facility] ? [facility]gent Care [address] [id number] PATIENT DISCHARGE INSTRUCTIONS Patient Information Name: CHANTELLE PINTO Age: 68 Years Date of : 1955 Reason For Visit: UC - Sinus Pain or Congestion; UC - Sinus Pain or Congestion; SINUS DRAINAGE, CONGESTION Arrival Time: 01/31/2023 17:31:19 Primary Care Physician: Luis Alfredo Grande Attending Physician: Deuce Hernandez Comment: Patient Education With: Address: When: Luis Alfredo Grande [address] [place] [address], [address] [place] [address] Business (1) Comments: Azithromycin as an antibiotic to 2 tabs day 1, then 1 tab daily thereafter until gone Nasacort nasal spray has been provided for you use 1 spray each nostril daily Follow-up with primary care provider in 3-5 days sooner if worse. Sinusitis, Adult Sinusitis is soreness and swelling (inflammation) of your sinuses. Sinuses are hollow spaces in the bones around your face. They are located: ? Around your eyes. ? In the middle of your forehead. ? Behind your nose. ? In your cheekbones. Your sinuses and nasal passages are lined with a fluid called mucus. Mucus drains out of your sinuses. Swelling can trap mucus in your sinuses. This lets germs (bacteria, virus, or fungus) grow, which leads to infection. Most of the time, this condition is caused by a virus. What are the causes? This condition is caused by: ? Allergies. ? Asthma. ? Germs. ? Things that block your nose or sinuses. ? Growths in the nose (nasal polyps). ? Chemicals or irritants in the air. ? Fungus (rare). What increases the risk? You are more likely to develop this condition if: ? You have a weak body defense system (immune system). ? You do a lot of swimming or diving. ? You use nasal sprays too much. ? You smoke. What are the signs or symptoms? The main symptoms of this condition are pain and a feeling of pressure around the sinuses. Other symptoms include: ? Stuffy nose (congestion). ? Runny nose (drainage). ? Swelling and warmth in the sinuses. ? Headache. ? Toothache. ? A cough that may get worse at night. ? Mucus that collects in the throat or the back of the nose (postnasal drip). ? Being unable to smell and taste. ? Being very tired (fatigue). ? A fever. ? Sore throat. ? Bad breath. How is this diagnosed? This condition is diagnosed based on: ? Your symptoms. ? Your medical history. ? A physical exam. ? Tests to find out if your condition is short-term (acute) or long-term (chronic). Your doctor may: ? Check your nose for growths (polyps). ? Check your sinuses using a tool that has a light (endoscope). ? Check for allergies or germs. ? Do imaging tests, such as an MRI or CT scan. How is this treated? Treatment for this condition depends on the cause and whether it is short-term or long-term. ? If caused by a virus, your symptoms should go away on their own within 10 days. You may be given medicines to relieve symptoms. They include: ? Medicines that shrink swollen tissue in the nose. ? Medicines that treat allergies (antihistamines). ? A spray that treats swelling of the nostrils.? ? Rinses that help get rid of thick mucus in your nose (nasal saline washes). ? If caused by bacteria, your doctor may wait to see if you will get better without treatment. You may be given antibiotic medicine if you have: ? A very bad infection. ? A weak body defense system. ? If caused by growths in the nose, you may need to have surgery. Follow these instructions at home: Medicines ? Take, use, or apply glym-tzo-jxnxhcc and prescription medicines only as told by your doctor. These may include nasal sprays. ? If you were prescribed an antibiotic medicine, take it as told by your doctor. Do not stop taking the antibiotic even if you start to feel better. Hydrate and humidify ? Drink enough water to keep your pee (urine) pale yellow. ? Use a cool mist humidifier to keep the humidity level in your home above 50%. ? Breathe in steam for 10?15 minutes, 3?4 times a day, or as told by your doctor. You can do this in the bathroom while a hot shower is running. ? Try not to spend time in cool or dry air. Rest ? Rest as much as you can. ? Sleep with your head raised (elevated). ? Make sure you get enough sleep each night. General instructions ? Put a warm, moist washcloth on your face 3?4 times a day, or as often as told by your doctor. This will help with discomfort. ? Wash your hands often with soap and water. If there is no soap and water, use hand airflight attendants supervisor. ? Do not smoke. Avoid being around people who are smoking (secondhand smoke). ? Keep all follow-up visits as told by your doctor. This is important. Contact a doctor if: ? You have a fever. ? Your sym (more content not included)... Normal [facility] Ferritinon 01-31-2023 Ferritin [Mass/Vol] 33.1 ng/mL Normal 12.0-150.0 [facility] Comment on above: Performed By: #### 1 [id number], [id number], 5583433, 7836551, 89727712, 6729630, 4257351 ####[facility] (DEFAULT)[address] [place] [address] Iron Profileon 01-31-2023 Iron [Mass/Vol] 107.0 ug/dL Normal 28.0-170.0 [facility] Comment on above: Performed By: #### 1 [id number], 6059574, 6727820, 9305321, 55690373, 8645135, 9213130 ####[facility] (DEFAULT)[address] [place] [address] Iron Sat 30 % Normal 20-55 [facility] Comment on above: Performed By: #### 1 8851568, 4617563, 1981827, 1739215, 94831031, 3348519, 6660388 ####[facility] (DEFAULT)[address] [place] [address] TIBC 353 mcg/dL Normal 250-400 [facility] Comment on above: Performed By: #### 1 9462666, 7390890, 8978530, 7901356, 07570255, 9315217, 5479784 ####[facility] (DEFAULT)[address] [place] [address] Transferrin [Mass/Vol] 252.1 mg/dL Normal 192.0-382.0 [facility] Comment on above: Performed By: #### 1 9833060, 1710517, 3592408, 4159537, 00777342, 8251607, 1833419 ####[facility] (DEFAULT)[address] [place] [address] TSHon 01-31-2023 TSH Qn 2.38 m[IU]/L Normal 0.45-5.33 [facility] Comment on above: Performed By: #### 1 4072774, 3239242, 5440328, 0303612, 33198604, 7026581, 8974825 ####[facility] (DEFAULT)[address] [place] [address] UA Pvjqi7ay 01-31-2023 UA Bacteria 2+ [facility] Comment on above: Order Comment: Urina lysis Microscopic order added on by [employer] Expert Rules system. Performed By: #### 6 912354, [id number], [id number] ####[facility] (DEFAULT)[address] [place] [address] UA RBC 3-5 [facility] Comment on above: Order Comment: Urina lysis Microscopic order added on by [employer] Expert Rules system. Performed By: #### 6 031687, [id number], [id number] ####[facility] (DEFAULT)[address] [place] [address] UA Squam Epi Many Normal [facility] Comment on above: Order Comment: Urina lysis Microscopic order added on by [employer] Expert Rules system. Performed By: #### 6 068213, [id number], [id number] ####[facility] (DEFAULT)[address] [place] [address] UA WBC 5-10 [facility] Comment on above: Order Comment: Urina lysis Microscopic order added on by [employer] Expert Rules system. Performed By: #### 6 169620, [id number], [id number] ####[facility] (DEFAULT)[address] [place] [address] UA Yeast Rare [facility] Comment on above: Order Comment: Urina lysis Microscopic order added on by [employer] Expert Rules system. Performed By: #### 6 125118, [id number], [id number] ####[facility] (DEFAULT)[address] [place] [address] UA w Culture if Ind Standard on 01-31-2023 Breakpoint UA [facility] Comment on above: Performed By: #### 6 126369, [id number], [id number] ####[facility] (DEFAULT)[address] [place] [address] Color (U) Yellow [facility] Comment on above: Performed By: #### 6 907520, [id number], [id number] ####[facility] (DEFAULT)[address] [place] [address] Culture? Indicated Invalid Interpretation Code [facility] Comment on above: Result Comment: Resu lt created by rule GL_MAGR_ADD_UA_CULT Result created by rule GL_MAGR_ADD_UA_CULT Result created by rule GL_MAGR_ADD_UA_CULT1 Result created by rule GL_MAGR_ADD_UA_CULT Performed By: #### 6 826456, [id number], [id number] ####[facility] (DEFAULT)[address] [place] [address] Glucose (U) [Mass/Vol] Negative [facility] Comment on above: Performed By: #### 6 365050, [id number], 63582158 ####[facility] (DEFAULT)[address] [place] [address] Ketones Ql (U) Negative [facility] Comment on above: Performed By: #### 6 228054, [id number], 13250760 ####[facility] (DEFAULT)[address] [place] [address] Micro? Indicated Invalid Interpretation Code [facility] Comment on above: Result Comment: Resu lt created by rule GL_MAGR_ADD_UA_MICRO Performed By: #### 6 683532, [id number], [id number] ####[facility] (DEFAULT)[address] [place] [address] UA Bilirubin Negative Normal [facility] Comment on above: Performed By: #### 6 862296, [id number], 81133281 ####[facility] (DEFAULT)[address] [place] [address] UA Blood SMALL Abnormal NEGATIVE [facility] Comment on above: Performed By: #### 6 361997, [id number], [id number] ####[facility] (DEFAULT)[address] [place] [address] UA Clarity CLOUDY Abnormal CLEAR [facility] Comment on above: Performed By: #### 6 687282, [id number], [id number] ####[facility] (DEFAULT)[address] [place] [address] UA Leuk Est TRACE Abnormal NEGATIVE [facility] Comment on above: Performed By: #### 6 664533, [id number], [id number] ####[facility] (DEFAULT)[address] [place] [address] UA Nitrite Negative Normal [facility] Comment on above: Performed By: #### 6 645009, [id number], [id number] ####[facility] (DEFAULT)[address] [place] [address] UA pH 6.0 Normal 5-8 [facility] Comment on above: Performed By: #### 6 722439, [id number], [id number] ####[facility] (DEFAULT)[address] [place] [address] UA Protein Negative Normal NEGATIVE [facility] Comment on above: Performed By: #### 6 885707, [id number], 83437213 ####[facility] (DEFAULT)[address] [place] [address] UA Spec Grav 1.025 Normal 1.001-1.035 [facility] Comment on above: Performed By: #### 6 656609, [id number], 94510358 ####[facility] (DEFAULT)[address] [place] [address] UA Urobilinogen 0.2 mg/dL Normal 0.2-1.0 [facility] Comment on above: Performed By: #### 6 727768, [id number], 16642568 ####[facility] (DEFAULT)[address] [place] [address] Urine Source Clean Catch Normal [facility] Comment on above: Performed By: #### 6 301501, [id number], [id number] ####[facility] (DEFAULT)[address] [place] [address] Urgent Care Note- Provideron 01-31-2023 Urgent Care Note- Provider Patient: CHANTELLE PINTO Age: 68 years Sex: FEMALE : 1955 Associated Diagnoses: Right otitis media; Sinus congestion Author: Deuce Hernandez Basic Information Time seen: Date & time 01/31/2023 18:07:00. History source: Patient. History limitation: None. Additional information: Chief Complaint from Nursing Triage Note : Chief Complaint 01/31/2023 18:23 EST Chief Complaint Nasal drainage/congestion . History of Present Illness PT is a 68-year-old female presents for sinus pressure, right ear pain states feels like she is wheezing. No shortness of breath or difficulty breathing. No weakness or fatigue. No fever or chills. No headache. States bilateral ear pressure, pain in his teeth, pressure behind the eyes. Amoxicillin and lorazepam allergies. ROS Constitutional negative ENMT negative Resp negative Additional negative Physical exam General - alert no acute distress Skin - warm dry Head -normocephalic atraumatic Eye - normal conjunctiva ENMT - TMs bulging on right, no pharyngeal erythema or exudates, ttp of maxillary, frontal sinuses Neck - supple Cardiovascular - regular rate regular rhythm, no murmur, normal peripheral perfusion Respiratory - lungs clear to auscultation, nonlabored respirations, breath sounds equal Lymphatics - no lymphadenopathy Medical decision making Physical exam findings consistent with sinusitis. Patient will be treated with erythromycin and Nasacort. Pt denies any h/o cardiac issues, denies h/o high blood pressure. Follow-up with primary care provider in 7-10 days sooner if worse. Health Status Allergies: Allergic Reactions (Selected) Severity Not Documented Amoxil- Nausea. LORazepam- No reactions were documented.. Medications: (Selected) Documented Medications Documented cyanocobalamin 1000 mcg/mL injectable solution: 1,000 mcg = 1 mL, IM, qMonth, 30 mL, 0 Refill(s) ergocalciferol 1.25 mg (50,000 intl units) oral capsule: 50,000 International_Unit = 1 cap(s), PO, qWeek, 4 cap(s), 0 Refill(s) estradiol 0.1 mg/g vaginal cream: 0 Refill(s) metFORMIN 500 mg oral tablet: 500 mg, 1 tab(s), PO, BID, 0 Refill(s) rosuvastatin 10 mg oral tablet: 10 mg = 1 tab(s), PO, Daily. Past Medical/ Family/ Social History Medical history: No active or resolved past medical history items have been selected or recorded.. Surgical history: No active procedure history items have been selected or recorded.. Family history: No family history items have been selected or recorded.. Social history: Social & Psychosocial Habits Alcohol 07/22/2021 Alcohol Use: Never Substance Abuse 07/22/2021 Substance use: Never Tobacco 01/31/2023 Smoking tobacco use: Never tobacco user Electronic Cigarette/Vaping 01/31/2023 Electronic Cigarette Use: Never . Problem list: Active Problems (2) Asthma Migraine . Physical Examination Vital Signs Vital Signs 01/31/2023 18:23 EST Temperature Temporal 36.8 DegC Peripheral Pulse Rate 78 bpm Respiratory Rate 16 br/min Systolic Blood Pressure 110 mmHg Diastolic Blood Pressure 78 mmHg SpO2 96 % Oxygen Therapy Room air BP Method Manual . Measurements 01/31/2023 18:23 EST Height 137.16 cm Weight 58.97 kg Body Mass Index Measured 31.35 kg/m2 BSA Measured 1.5 m2 . Impression and Plan Diagnosis Right otitis media ([id number] H66.91, Discharge, Medical) Sinus congestion ([id number] R09.81, Discharge, Medical) Plan Prescriptions: Launch prescriptions Pharmacy: !-Nasacort AQ 55 mcg/inh nasal spray (Prescribe): 1 spray(s), Nasal, Daily, 16.5 gm, 0 Refill(s) azithromycin 250 mg oral tablet (Prescribe): See Instructions, Take 2 tabs day 1, one tab daily thereafter., 6 tab(s), 0 Refill(s). Patient was given the following educational materials: Otitis Media, Pediatric, Bcfy-fu-Bood, Sinusitis, Adult, Vmrt-ok-Dkjz. Follow up with: Luis Alfredo Grande Azithromycin as an antibiotic to 2 tabs day 1, then 1 tab daily thereafter until gone Nasacort nasal spray has been provided for you use 1 spray each nostril daily Follow-up with primary care provider in 3-5 days sooner if worse.. Counseled: Patient, Regarding diagnosis, Regarding diagnostic results, Regarding treatment plan, Regarding prescription, Patient indicated understanding of instructions. [Electronically Signed on: 01/31/2023 18:34 EST] Deuce Hernandez [Verified on: 01/31/2023 18:34 EST] Deuce Hernandez [facility] [address] Urgent Care Record [facility] ? Urgent Care [address] [place] [address] PATIENT DISCHARGE INSTRUCTIONS Patient Information Name: CHANTELLE PINTO Age: 68 Years Date of : 1955 Reason For Visit: UC - Sinus Pain or Congestion; UC - Sinus Pain or Congestion; SINUS DRAINAGE, CONGESTION Arrival Time: 01/31/2023 17:31:19 Primary Care Physician: Luis Alfredo Grande Attending Physician: Deuce Hernandez Comment: Visit Diagnosis: Diagnoses This Visit Right otitis media (H66.91) Sinus congestion (R09.81) UC - Sinus Pain or Congestion ([id number]) UC - Sinus Pain or Congestion ([id number]) If you received any narcotics, sedation, or any other medication that causes drowsiness for the next 24 hours, unless otherwise directed: ? Do not drive a car. ? Do not operate machinery such as power tools, lawn mowers, drills, sewing machines, or stoves ? Avoid alcoholic beverages and drugs for allergies, nerves, or sleep ? Do not make important personal or business decisions or sign any legal documents With: Address: When: [address], [address] [place] [address] Business (1) Comments: Azithromycin as an antibiotic to 2 tabs day 1, then 1 tab daily thereafter until gone Nasacort nasal spray has been provided for you use 1 spray each nostril daily Follow-up with primary care provider in 3-5 days sooner if worse. Medication Information: The exam and treatment you received today in the [facility] were for an urgent problem and are not intended as complete care. It is important for you to follow up with a doctor, nurse practitioner, or physician?s equity sales assistant for ongoing care. If your symptoms become worse or you do not improve as expected and you are unable to reach your usual health care provider, you should return to the Emergency Department, we are available 24 hours a day. For those patients who have received Radiology results, the interpretation of your X-ray as given to you by our Urgent Care physician is only a preliminary report. The Radiologist will review your films and if there is a change in the diagnosis you will be notified by phone. Please make sure you have provided a working phone number so we can reach you if necessary. In the event that you had a lab culture while you were a patient in the Urgent Care, you will be notified by phone if there is a need to change your antibiotic. Please make sure you have provided a working phone number so we can reach you if necessary. [facility] has provided you with a complete list of medications post discharge. Please inform your factory process workers/provider of your visit and for further instruction on these medications. Any specific questions regarding your chronic medications and dosages should be discussed with your primary care physician(s) and/or pharmacist. New Medications [facility], [address] [place], [place] [id number], [phone] azithromycin (azithromycin 250 mg oral tablet) Take 2 tabs day 1, one tab daily thereafter.. Refills: 0. triamcinolone nasal (!-Nasacort AQ 55 mcg/inh nasal spray) 1 spray(s) Nasal every day. Refills: 0. Additional medications on your home medication list not specifically addressed. Please contact the ordering physician if you have questions about these medications. cyanocobalamin (cyanocobalamin 1000 mcg/mL injectable solution) 1 Milliliter Intramuscular once a month. ergocalciferol (ergocalciferol 1.25 mg (50,000 intl units) oral capsule) 1 cap(s) Oral every week. estradiol topical (estradiol 0.1 mg/g vaginal cream) metFORMIN (metFORMIN 500 mg oral tablet) 1 tab(s) Oral 2 times a day. rosuvastatin (rosuvastatin 10 mg oral tablet) 1 tab(s) Oral every day. Visit Information Allergies: Substance Reaction Symptoms Type Comments Amoxil Nausea Drug LORazepam Drug Vital Signs: Vitals and Measurements this Visit (last charted value for your 01/31/2023 visit) Vital Signs This Visit Temperature Temporal: 36.8 DegC Peripheral Pulse Rate: 78 bpm Respiratory Rate: 16 br/min Systolic Blood Pressure: 110 mmHg Diastolic Blood Pressure: 78 mmHg SpO2: 96 % Oxygen Therapy: Room air Blood Pressure Method: Manual Measurements This Visit Height/Length Measured: 137.16 cm Weight Measured: 58.97 kg Body Mass Index: 31.35 kg/m2 BSA Measured: 1.5 m2 Problems List: Problem Onset Comments Asthma Migraine Patient Education Sinusitis, Adult Sinusitis is soreness and swelling (inflammation) of your sinuses. Sinuses are hollow spaces in the bones around your face. They are located: ? Around your eyes. ? In the middle of your forehead. ? Behind your nose. ? In your cheekbones. Your sinuses and nasal passages are lined with a fluid called mucus. Mucus drains out of your sinuses. S (more content not included)... Normal [facility] Vit B12 Lvlon 01-31-2023 Vit B12 1205 High 180-914 [facility] Comment on above: Performed By: #### 1 [id number], 3501854, 5737351, 3134201, 85200536, 5369028, 9017095 ####[facility] (DEFAULT)[address] [place] [address] Vit D25 OHon 01-31-2023 Vitamin D 25 OH 54 ng/mL Invalid Interpretation Code [facility] Comment on above: Performed By: #### 1 [id number], 0446463, 2645569, 5623255, 24960440, 1023849, 0905716 ####[facility] (DEFAULT)[address] [place] [address] Diagnostic Mammogram, Unilat eral Left w/Jose (3D)on 08-20-2022 Diagnostic Mammogram, Unilateral Left w/Jose (3D) CLINICAL HISTORY: Diagnostic Mammogram COMPARISON: Screening mammogram 08/07/2022. Other mammograms dating back to 2018. TECHNIQUE: 2D and 3D mammogram imaging of the left breast and left breast ultrasound was performed. RESULT: DENSITY: There are scattered areas of fibroglandular density. The asymmetry within the medial left breast is less apparent on the diagnostic views. Ultrasound is recommended. On the left breast ultrasound, there are no suspicious findings. Focal area of denser breast tissue surrounded by fatty tissue, probably correlating with the mammogram findings. No focal mass or lesion. IMPRESSION: BIRADS 2 : BENIGN FINDINGS, NORMAL INTERVAL FOLLOW UP. FOLLOW-UP: 12 months DENSITY: Scattered MAMMOGRAPHY IS VERY IMPORTANT TO YOUR HEALTH. THE CURRENT [place] [employer] OF [employer] AND NATIONAL COMPREH[employer]IVE [employer]WORK GUIDELINES RECOMMENDS ANNUAL MAMMOGRAPHY BEGINNING AT AGE 40 THIS FACILITY USES A REMINDER SYSTEM TO ENSURE ALL PATIENTS RECEIVE REMINDER NOTIFICATIONS AT THE APPROPRIATE TIME BASED ON THE RECOMMENDATIONS OF THIS EXAM. Board Certified Radiologist. Accredited by the ACR and FDA. Report reported and signed by Isaiah Tatum on 08/20/2022 1512 Normal [facility] Student Services Representative US Breast Limited, Lefton US Breast Limited, Left Refer to concurrent diagnostic mammogram dictation. Report reported and signed by Isaiah Tatum on 08/20/2022 1512 Normal [facility] Student Services Representative NM vito perf SPECT rest stron 08-09-2022 NM vito perf SPECT rest [facility] [place] [address] Nuclear Medicine Report Signed Patient: Chantelle Pinto MR#: [id number] [id number] : 1955 Acct:[id number] Age/Sex: 67 / F ADM Date: 08/08/22 Loc: NM Room: Type: DEP CLI Attending Dr: Luis Alfredo Grande MD Copies to: MD Luis Alfredo Lomas MD Ordering Provider: Luis Alfredo Grande MD Date of Service: 08/08/22 NM/NM vito perf SPECT rest str: R07.9 REFERRING PHYSICIAN: Luis Alfredo Gradne MD REASON FOR STUDY: Chest pain. PROCEDURE: The patient underwent 1-day rest/stress protocol. Rest images obtained by injecting 6.3 mCi of Cardiolite. Stress images obtained by injecting 19.2 mCi of Cardiolite. Subsequently, gated SPECT and ejection fraction studies were performed. IMAGING RESULT: This appears to be a fair study. It appears to be normal. There is no clear pattern of ischemia or myocardial infarction. Left ventricular ejection fraction appears normal, calculated at 75%. TID index normal at 0.76. CONCLUSION: 1. No clear pattern of ischemia or myocardial infarction. 2. Normal left ventricular systolic function and wall motion. 3. No previous study available for comparison. Transcribed By: CHRISTIAN 08/09/22 1210 Dictated By: Stacia Horner MD 08/09/22 1202 Signed By: 08/09/22 1302 Normal [facility] STR cardiac stress/cardiolon 08-09-2022 STR cardiac stress/cardiol [facility] [address] [place] [address] [id number] Cardiac Stress Test Signed Patient: Chantelle Pinto MR#: [id number] : 1955 Acct:[id number] Age/Sex: 67 / F ADM Date: 08/08/22 Loc: NM Room: Type: DEP CLI Attending Dr: Luis Alfredo Graned MD Copies to: MD Luis Alfredo Lomas MD Ordering Provider: Luis Alfredo Grande MD Date of Service: 08/08/22 STR/STR cardiac stress/cardiol: chest pain;Chest pain REFERRING PHYSICIAN: Luis Alfredo Grande MD REASON FOR STUDY: Chest pain. PROCEDURE: The patient underwent Cardiolite exercise stress test. The patient was able to exercise for a total of 7 minutes 1 second, achieving workload of 7 METs. Maximum heart rate was 153 beats per minute, corresponding to 99% of maximum predicted heart rate. Blood pressure and heart response to exercise was physiologic. This terminated secondary to fatigue. No chest pain was reported. Baseline ECG showed normal sinus rhythm with no ST-T changes. Following exercise, nondiagnostic changes were seen, no arrhythmias were observed. CONCLUSION: 1. Cardiolite exercise stress test with no diagnostic ST-T changes for ischemia. 2. No provoked chest pain or arrhythmia. 3. Appropriate hemodynamic response to exercise. 4. Good exercise tolerance. 5. Normal heart rate recovery phase. 6. Perfusion images will be dictated separately. Transcribed By: CHRISTIAN 08/09/22 1218 Dictated By: Stacia Horner MD 08/09/22 1208 Signed By: 08/09/22 1302 [facility] SCREENING MAMMOGRAM W/JOSE, BILATERAL*on 08-07-2022 SCREENING MAMMOGRAM W/JOSE, BILATERAL* EXAMINATION: Screening Mammogram CLINICAL HISTORY: Patient refused 3D total images. COMPARISON: Dating back to 02/28/2018 TECHNIQUE: 2D and 3D Tomosynthesis of the right and left breasts was performed. FINDINGS: There are scattered fibroglandular densities within each breast. There are no suspicious microcalcifications or areas of architectural distortion identified. No evidence of skin thickening. There are stable benign-appearing calcifications present. There are stable areas of asymmetric density present. No suspicious mass right breast. Left breast: Within the medial aspect of the left breast at 6.5 cm from nipple there is a focal asymmetric density. Recommend correlation with spot tomograms and possible sonogram for further workup. IMPRESSION: LEFT BREAST: BIRADS 0 : ADDITIONAL IMAGING EVALUATION NEEDED. RIGHT BREAST: BIRADS 2 : BENIGN FINDINGS, NORMAL INTERVAL FOLLOW UP. MAMMOGRAPHY IS VERY IMPORTANT TO YOUR HEALTH. THE CURRENT [place] [employer] OF RADI[employer] AND NATIONAL COMPREHENSIVE CANCER NETWORK GUIDELINES RECOMMEND ANNUAL MAMMOGRAPHY BEGINNING AT AGE 40. THIS FACILITY UTILIZES A REMINDER SYSTEM TO ENSURE ALL PATIENTS RECEIVE A REMINDER NOTIFICATION AT THE APPROPRIATE TIME BASED ON THE RECOMMENDATIONS OF THIS EXAM. BOARD CERTIFIED RADIOLOGIST. ACCREDITED BY THE [facility] AND FDA. Report reported and signed by Kika Cooney on 08/07/2022 1356 Normal [facility] Student Services Representative Comprehensive Metabolic Pane wyatt 03-06-2022 Albumin [Mass/Vol] 4.4 g/dL Normal 3.6-5.1 [facility] Student Services Representative Comment on above: Performed By: #### C DIAZ JAMES #### [facility] [address] [place], [place] [id number] Albumin/Globulin [Mass ratio] 1.7 {ratio} Normal 1.0-2.5 [facility] Student Services Representative Comment on above: Performed By: #### C DIAZ JAMES #### [facility] [address] [place], [place] [id number] ALP [Catalytic activity/Vol] 125 U/L High 35-[address] [facility] Specialist Comment on above: Performed By: #### C DIAZ JAMES #### [facility] [address] [place], [place] [id number] ALT [Catalytic activity/Vol] 27 U/L Normal 6-[address] [facility] Specialist Comment on above: Result Comment: 11/01 Female reference range changed. Performed By: #### C DIAZ JAMES #### [facility] [address] [place], [place] [id number] Anion gap [Moles/Vol] 19 mmol/L Normal 12-20 [facility] Student Services Representative Comment on above: Result Comment: Effe ctive 12/07/2019 reference range changed. Performed By: #### C DIAZ JAMES #### [facility] [address] [place], [place] [id number] AST [Catalytic activity/Vol] 27 U/L Normal 9-34 [facility] Student Services Representative Comment on above: Performed By: #### C DIAZ JAMES #### [facility] [address] [place], [place] [id number] Bilirubin [Mass/Vol] 0.37 mg/dL Normal 0.30-1.20 [facility] Student Services Representative Comment on above: Performed By: #### C DIAZ JAMES #### [facility] [address] [place], [place] [id number] BUN/CREA 28 Ratio High 6-[address] [facility] Specialist Comment on above: Performed By: #### C DIAZ JAMES #### [facility] [address], [place] [id number] Calcium [Mass/Vol] 9.4 mg/dL Normal 8.6-10.[address] [facility] Specialist Comment on above: Performed By: #### C ERIKA LIPMyah #### [facility] [address], [place] [id number] Chloride [Moles/Vol] 102 mmol/L Normal 98-[address] [facility] Specialist Comment on above: Performed By: #### C ERIKA, LIPD #### [facility] [address], [place] [id number] CO2 [Moles/Vol] 22 mmol/L Normal 20-[address] [facility] Specialist Comment on above: Performed By: #### C ERIKA, LIPD #### [facility] [address], [place] [id number] Creatinine [Mass/Vol] 0.5 mg/dL Low 0.6-1.[address] [facility] Specialist Comment on above: Performed By: #### C ERIKA, LIPD #### [facility] [address], [place] [id number] eGFRAA 140 mL/min/1.73m2 Normal >60 [facility] Specialist Comment on above: Performed By: #### C ERIKA, LIPD #### [facility] [address], [place] [id number] eGFRNAA 115 mL/min/1.73m2 Normal >60 [facility] Specialist Comment on above: Performed By: #### C ERIKA, LIPD #### [facility] [address], [place] [id number] Globulin (S) [Mass/Vol] 2.6 g/dL Normal 1.9-3.[address] [facility] Specialist Comment on above: Performed By: #### C ERIKA, LIPD #### [facility] [address], [place] [id number] Glucose [Mass/Vol] 170 mg/dL High 65-99 [facility] Student Services Representative Comment on above: Result Comment: For FASTING Glucose --- ADA reference ranges: Normal 65-99 mg/dl Prediabetes 100-125 Diabetes >/= 126 Performed By: #### C ERIKA, LIPD #### [facility] [address], [place] [id number] Potassium [Moles/Vol] 4.7 mmol/L Normal 3.5-5.5 [facility] Student Services Representative Comment on above: Performed By: #### C ERIKA LIPD #### [facility] [address], [place] [id number] Protein [Mass/Vol] 7.0 g/dL Normal 6.1-8.1 [facility] Student Services Representative Comment on above: Performed By: #### C ERIKA LIPD #### [facility] [address], [place] [id number] Sodium [Moles/Vol] 138 mmol/L Normal 135-146 [facility] Student Services Representative Comment on above: Performed By: #### C ERIKA LIPD #### [facility] [address], [place] [id number] Urea nitrogen [Mass/Vol] 15 mg/dL Normal 7-25 [facility] Student Services Representative Comment on above: Performed By: #### C ERIKA LIPD #### [facility] [address], [place] [id number] Hemoglobin A1Con 03-06-2022 EAG 177.[address] [facility] Specialist Comment on above: Performed By: #### A 1C #### [facility] [address], [place] [id number] HbA1c (Bld) [Mass fraction] 7.8 % High 4.0-6.0 [facility] Student Services Representative Comment on above: Performed By: #### A 1C #### [facility] [address], [place] [id number] Lipid Panelon 03-06-2022 Cholesterol [Mass/Vol] 271 mg/dL High 125-200 [facility] Student Services Representative Comment on above: Result Comment: Low risk < 200mg/dL Borderline risk 201-239 mg/dl High risk > or equal to 240 Performed By: #### C ERIKA LIPD #### [facility] [address], [place] [id number] Cholesterol in HDL [Mass/Vol] 44 mg/dL Normal >40 [facility] Student Services Representative Comment on above: Result Comment: High Cardiovascular Risk HDL <40 mg/dL Low Cardiovascular Risk HDL > or equal to 60 mg/dl Performed By: #### C ERIKA LIPD #### [facility] [address], [place] [id number] Cholesterol in LDL [Mass/Vol] 184 mg/dL Normal [facility] Specialist Comment on above: Result Comment: LDL ATP III CLASSIFICATION LDL less than 100 mg/dl Optimal LDL 100-129 mg/dl Near or above optimal LDL 130-159 Borderline high LDL 160-189 High LDL greater than 189 mg/dl Very High Performed By: #### C MP, LIPD #### [facility] [address], [place] [id number] Cholesterol in VLDL [Mass/Vol] 43 mg/dL Normal [facility] Specialist Comment on above: Performed By: #### C MP, LIPD #### [facility] [address], [place] [id number] Cholesterol.total /Cholesterol in HDL [Mass ratio] 6 {ratio} Normal [facility] Specialist Comment on above: Performed By: #### C MP, LIPD #### [facility] [address], [place] [id number] Triglyceride [Mass/Vol] 215 mg/dL High 30-150 [facility] Student Services Representative Comment on above: Result Comment: TRIG ATPIII CLASSIFICATIONS TRIG less than 150 mg/dl Normal TRIG 150-199 mg/dl Borderline High TRIG 200-500 mg/dl High TRIG greather than 500 mg/dl Very High Performed By: #### C MP, LIPD #### [facility] [address], [place] [id number] Q - ALK PHOSPHATASE ISOENZYM ESon 03-06-2022 ALP [Catalytic activity/Vol] 117 U/L Normal 37-[address] [facility] Specialist Comment on above: Order Comment: [facility] performed at: [facility], [place], [address] [address], [place], [place], , Liner Man: Jeffry Rosas M.D.,PhD [facility] Date/Time: [facility] Results Received Date/Time: [facility] Reported Date/Time: Performed By: #### 2 31 #### [facility] [address] [place] [address] BONE ISOENZYMES 29 % Normal 28-66 [facility] Student Services Representative Comment on above: Order Comment: [facility] performed at: [facility], [place], [address] [address], [place], [place], , Liner Man: eJffry Rosas M.D.,PhD [facility] Date/Time: [facility] Results Received Date/Time: [facility] Reported Date/Time: Performed By: #### 2 31 #### [facility] [address] [place] [address] INTESTINAL ISOENZYMES 0 % Low 1-[address] [facility] Specialist Comment on above: Order Comment: [facility] performed at: [facility], [place], [address], [place], [place], , Liner Man: Jeffry Rosas M.D.,PhD [facility] Date/Time: [facility] Results Received Date/Time: [facility] Reported Date/Time: Performed By: #### 2 31 #### [facility] [address] [place] [address] LIVER ISOENZYMES 71 % High 25-[address] [facility] Specialist Comment on above: Order Comment: [facility] performed at: [facility], [place], [address], [place], [place], , Liner Man: Jeffry Rosas M.D.,PhD [facility] Date/Time: [facility] Results Received Date/Time: [facility] Reported Date/Time: Performed By: #### 2 31 #### [facility] [address] [place] [address] MACROHEPATIC ISOENZYMES 0 % Normal <=[address] [facility] Specialist Comment on above: Order Comment: [facility] performed at: [facility], [place], [address] [place], [place], , Liner Man: Jeffry Rosas M.D.,PhD [facility] Date/Time: [facility] Results Received Date/Time: [facility] Reported Date/Time: Performed By: #### 2 31 #### [facility] [address] [place] [address] PLACENTAL ISOENZYMES 0 % Normal <=0 [facility] Student Services Representative Comment on above: Order Comment: [facility] performed at: [facility], [place], [address] [facility] , [place], [place], , Liner Man: Jeffry Rosas M.D.,PhD [facility] Date/Time: [facility] Results Received Date/Time: [facility] Reported Date/Time: Performed By: #### 2 31 #### [facility] [address] [place] [address] Vitamin B12on 03-06-2022 Cobalamin (Vitamin B12) [Mass/Vol] 947 pg/mL High 211-946 [facility] Student Services Representative Comment on above: Performed By: #### B 12 #### [facility] [address] [place], [place] [id number] Encounters Encounter Date Encounter Type Care Provider Facility Start: 03-23-2024 End: 03-23-2024 ambulatory PRABHJOT RAMAN Not Available Start: 07-09-2023 End: 07-09-2023 ambulatory VIOLET MCNEILL Facility:[facility] Start: 06-06-2023 End: 06-07-2023 ambulatory JESSE CONRAD [place] Start: 06-06-2023 End: 06-06-2023 Patient encounter procedure JESSE CONRAD [facility] Start: 01-31-2023 End: 01-31-2023 ambulatory Luis Alfredo Harjinder Facility:[facility] Start: 01-31-2023 End: 02-01-2023 ambulatory [facility] Facility:[facility] Start: 08-08-2022 ambulatory Alvaro Dickinson [id number] Start: 08-08-2022 End: 08-08-2022 ambulatory W Reese Benson Facility:[facility] Start: 08-08-2022 End: 08-08-2022 Patient encounter procedure MD Luis Alfredo Grande Work Phone: [facility] Start: 03-04-2019 End: 07-18-2019 Patient encounter procedure POLY SANTIZO Facility:[facility] Plan of Treatment Date Care Activity Detail Author Start: 08-08-2022 Radionuclide myocard ial perfusion stress study NM vito perf SPECT rest & str [facility] Start: 08-08-2022 SPECT Heart perfusio n at rest and W stress and W radionuclide IV [facility] Work Phone: Payers Date Payer Category Payer Medicare [id number] Self-pay 1955 Unknown [id number] 2.16.84 [id number] 1955 Unknown [id number] 1955 Unknown [id number] 2.16.8 [id number] 1955 Unknown [id number] 2.16.8 [id number] 1955 Unknown [id number] 2.16.8 [id number] 1955 Unknown [id number] 2.16.8 [id number] 1955 Unknown [id number] 2.16.84 [id number] Unknown Eric BC/BS XI [id number] Unknown [place] XI [id number] Unknown Regular Auto/Medical [id number] Unknown [id number] 2.16.8 [id number] Social History Date Type Detail Facility Start: 02-10-2020 [facility] Start: 1955 Sex Assigned At Female F [facility] Tobacco smoking status No Smokin g Status Entered [facility] Sex Assigned At Female [facility] Clinical Note 07-09-2023 Note Date & Type Note Facility 07-09-2023 Note Patient Education Ma terials Follows: Hypertension, Adult High blood pressure (hypertension) is when the force of blood pumping through the arteries is too strong. The arteries are the blood vessels that carry blood from the heart throughout the body. Hypertension forces the heart to work harder to pump blood and may cause arteries to become narrow or stiff. Untreated or uncontrolled hypertension can lead to a heart attack, heart failure, a stroke, kidney disease, and other problems. A blood pressure reading consists of a higher number over a lower number. Ideally, your blood pressure should be below 120/80. The first ( top ) number is called the systolic pressure. It is a measure of the pressure in your arteries as your heart beats. The second ( bottom ) number is called the diastolic pressure. It is a measure of the pressure in your arteries as the heart relaxes. What are the causes? The exact cause of this condition is not known. There are some conditions that result in high blood pressure. What increases the risk? Certain factors may make you more likely to develop high blood pressure. Some of these risk factors are under your control, including: ? Smoking. ? Not getting enough exercise or physical activity. ? Being overweight. ? Having too much fat, sugar, calories, or salt (sodium) in your diet. ? Drinking too much alcohol. Other risk factors include: ? Having a personal history of heart disease, diabetes, high cholesterol, or kidney disease. ? Stress. ? Having a family history of high blood pressure and high cholesterol. ? Having obstructive sleep apnea. ? Age. The risk increases with age. What are the signs or symptoms? High blood pressure may not cause symptoms. Very high blood pressure (hypertensive crisis) may cause: ? Headache. ? Fast or irregular heartbeats (palpitations). ? Shortness of breath. ? Nosebleed. ? Nausea and vomiting. ? Vision changes. ? Severe chest pain, dizziness, and seizures. How is this diagnosed? This condition is diagnosed by measuring your blood pressure while you are seated, with your arm resting on a flat surface, your legs uncrossed, and your feet flat on the floor. The cuff of the blood pressure monitor will be placed directly against the skin of your upper arm at the level of your heart. Blood pressure should be measured at least twice using the same arm. Certain conditions can cause a difference in blood pressure between your right and left arms. If you have a high blood pressure reading during one visit or you have normal blood pressure with other risk factors, you may be asked to: ? Return on a different day to have your blood pressure checked again. ? Monitor your blood pressure at home for 1 week or longer. If you are diagnosed with hypertension, you may have other blood or imaging tests to help your health care provider understand your overall risk for other conditions. How is this treated? This condition is treated by making healthy lifestyle changes, such as eating healthy foods, exercising more, and reducing your alcohol intake. You may be referred for counseling on a healthy diet and physical activity. Your health care provider may prescribe medicine if lifestyle changes are not enough to get your blood pressure under control and if: ? Your systolic blood pressure is above 130. ? Your diastolic blood pressure is above 80. Your personal target blood pressure may vary depending on your medical conditions, your age, and other factors. Follow these instructions at home: Eating and drinking ? Eat a diet that is high in fiber and potassium, and low in sodium, added sugar, and fat. An example of this eating plan is called the DASH diet. DASH stands for Dietary Approaches to Stop Hypertension. To eat this way: ? Eat plenty of fresh fruits and vegetables. Try to fill one half of your plate at each meal with fruits and vegetables. ? Eat whole grains, such as whole-wheat pasta, brown rice, or whole-grain bread. Fill about one fourth of your plate with whole grains. ? Eat or drink low-fat dairy products, such as skim milk or low-fat yogurt. ? Avoid fatty cuts of meat, processed or cured meats, and poultry with skin. Fill about one fourth of your plate with lean proteins, such as fish, chicken without skin, beans, eggs, or tofu. ? Avoid pre-made and processed foods. These tend to be higher in sodium, added sugar, and fat. ? Reduce your daily sodium intake. Many people with hypertension should eat less than 1,500 mg of sodium a day. ? Do not drink alcohol if: ? Your health care provider tells you not to drink. ? You are , may be , or are planning to become . ? If you drink alcohol: ? Limit how much you have to: ? 0?1 drink a day for women. ? 0?2 drinks a day for men. ? Know how much alcohol is in your drink. In the [place] one drink equals one 12 oz bottle of beer (355 mL), one 5 oz glass of wine (148 mL (more content not included)... [facility] Clinical Note 01-31-2023 Note Date & Type Note Facility 01-31-2023 Note Patient Education Ma terials Follows:Disease Sinusitis, Adult Sinusitis is soreness and swelling (inflammation) of your sinuses. Sinuses are hollow spaces in the bones around your face. They are located: ? Around your eyes. ? In the middle of your forehead. ? Behind your nose. ? In your cheekbones. Your sinuses and nasal passages are lined with a fluid called mucus. Mucus drains out of your sinuses. Swelling can trap mucus in your sinuses. This lets germs (bacteria, virus, or fungus) grow, which leads to infection. Most of the time, this condition is caused by a virus. What are the causes? This condition is caused by: ? Allergies. ? Asthma. ? Germs. ? Things that block your nose or sinuses. ? Growths in the nose (nasal polyps). ? Chemicals or irritants in the air. ? Fungus (rare). What increases the risk? You are more likely to develop this condition if: ? You have a weak body defense system (immune system). ? You do a lot of swimming or diving. ? You use nasal sprays too much. ? You smoke. What are the signs or symptoms? The main symptoms of this condition are pain and a feeling of pressure around the sinuses. Other symptoms include: ? Stuffy nose (congestion). ? Runny nose (drainage). ? Swelling and warmth in the sinuses. ? Headache. ? Toothache. ? A cough that may get worse at night. ? Mucus that collects in the throat or the back of the nose (postnasal drip). ? Being unable to smell and taste. ? Being very tired (fatigue). ? A fever. ? Sore throat. ? Bad breath. How is this diagnosed? This condition is diagnosed based on: ? Your symptoms. ? Your medical history. ? A physical exam. ? Tests to find out if your condition is short-term (acute) or long-term (chronic). Your doctor may: ? Check your nose for growths (polyps). ? Check your sinuses using a tool that has a light (endoscope). ? Check for allergies or germs. ? Do imaging tests, such as an MRI or CT scan. How is this treated? Treatment for this condition depends on the cause and whether it is short-term or long-term. ? If caused by a virus, your symptoms should go away on their own within 10 days. You may be given medicines to relieve symptoms. They include: ? Medicines that shrink swollen tissue in the nose. ? Medicines that treat allergies (antihistamines). ? A spray that treats swelling of the nostrils.? ? Rinses that help get rid of thick mucus in your nose (nasal saline washes). ? If caused by bacteria, your doctor may wait to see if you will get better without treatment. You may be given antibiotic medicine if you have: ? A very bad infection. ? A weak body defense system. ? If caused by growths in the nose, you may need to have surgery. Follow these instructions at home: Medicines ? Take, use, or apply [id number] and prescription medicines only as told by your doctor. These may include nasal sprays. ? If you were prescribed an antibiotic medicine, take it as told by your doctor. Do not stop taking the antibiotic even if you start to feel better. Hydrate and humidify ? Drink enough water to keep your pee (urine) pale yellow. ? Use a cool mist humidifier to keep the humidity level in your home above 50%. ? Breathe in steam for 10?15 minutes, 3?4 times a day, or as told by your doctor. You can do this in the bathroom while a hot shower is running. ? Try not to spend time in cool or dry air. Rest ? Rest as much as you can. ? Sleep with your head raised (elevated). ? Make sure you get enough sleep each night. General instructions ? Put a warm, moist washcloth on your face 3?4 times a day, or as often as told by your doctor. This will help with discomfort. ? Wash your hands often with soap and water. If there is no soap and water, use hand airflight attendants supervisor. ? Do not smoke. Avoid being around people who are smoking (secondhand smoke). ? Keep all follow-up visits as told by your doctor. This is important. Contact a doctor if: ? You have a fever. ? Your symptoms get worse. ? Your symptoms do not get better within 10 days. Get help right away if: ? You have a very bad headache. ? You cannot stop throwing up (vomiting). ? You have very bad pain or swelling around your face or eyes. ? You have trouble seeing. ? You feel confused. ? Your neck is stiff. ? You have trouble breathing. Summary ? Sinusitis is swelling of your sinuses. Sinuses are hollow spaces in the bones around your face. ? This condition is caused by tissues in your nose that become inflamed or swollen. This traps germs. These can lead to infection. ? If you were prescribed an antibiotic medicine, take it as told by your doctor. Do not stop taking it even if you start to feel better. ? Keep all follow-up visits as told by your doctor. This is important. This information is not intended to replace a (more content not included)... [facility] Evaluation + Plan note Note Date & Type Note Facility Evaluation + Plan note No data available for this section [facility] Evaluation note Note Date & Type Note Facility Evaluation note No assessment information availa [facility] Work Phone: Hospital Discharge instructions Note Date & Type Note Facility Hospital Discharge instructions No data available for this section [facility] Progress note Note Date & Type Note Facility Progress note No data available for this section [facility] Summary Purpose Family History No Family History Records Found Relationship Condition Age at Onset Recorded Date/T nita father Diabetes mellitus Unknown Glaucoma Unknown Not Specified Recurrent cerebrovas cular accidents (CVAs) Unknown Diabetes mellitus Unknown Family history of co ronary artery bypass surgery Unknown sister Malignant neoplasm Unknown sister Gout Unknown Lupus Unknown Advance Directives No Advanced Directives Records Found Advance Directive Response Recorded Date/ Time Advance Directives No February 17, 018 12:09pm Chief Complaint and Reason for Visit Chief Complaint R07.9 Additional Source Comments INFORMATION SOURCE (unrecogn ized section and content) DATE CREATED AUTHOR 07/18/2019 [facility] DATE CREATED AUTHOR AUTHOR'S ORGANIZ ATION 09/02/2022 [facility] dical Specialist DATE CREATED AUTHOR AUTHOR'S ORGANIZ ATION 01/05/2023 [facility] DATE CREATED AUTHOR AUTHOR'S ORGANIZ ATION 03/30/2023 [facility] DATE CREATED AUTHOR AUTHOR'S ORGANIZ ATION 06/07/2023 [facility] DATE CREATED AUTHOR AUTHOR'S ORGANIZ ATION 07/20/2023 [facility] DATE CREATED AUTHOR AUTHOR'S ORGANIZ ATION 03/23/2024 [facility] dical Specialists EPIC Care Teams (unrecognized sec tion and content) Team Status: Inactive Member Role Status Dates Luis Alfredo Grande MD Primary Care Provider, Attending Prov ider Active W Reese Benson DO Referring Provider Active Team Status: Active Member Role Status Dates Luis Alfredo Grande MD Primary Care Provider Active Goals (unrecognized section and content) Goals may be documented in a n alternate section No data available for this section FOR RECORDS PERTAINING TO PATIENTS WHO ARE OR HAVE BEEN ENROLLED IN A CHEMICAL DEPENDENCY/SUBSTANCEABUSE PROGRAM, SOME INFORMATION MAY BE OMITTED. This clinical summary was aggregated from multiple sources. Caution should be exercised in using it in the provision of clinical care. This summary normalizes information from multiple sources, and as a consequence, information in this document may materially change the coding, format and clinical context of patient data. In addition, data may be omitted in some cases. CLINICAL DECISIONS SHOULD BE BASED ON THE PRIMARY CLINICAL RECORDS. [employer] [facility] provides no warranty or guarantee of the accuracy or completeness of information in this document.
[2024-06-24 09:37] VITALS: BP 118/54; PULSE 74; O2SAT 97
[2024-06-24] MEDS: LIDOCAINE HCL 1% 100 MG/10 ML MDV INJ (09:49)
[2024-06-24] MEDS: 0.9 % SODIUM CHLORIDE 500 ML, LIDOCAINE HCL 20 ML, SODIUM BICARBONATE 10 MEQ INJ (09:50)
== END 2024-06-24 09:46 | disposition home or self-care (01) ==
LOC: VC 09:07
PROVIDERS: PCP Radiology Diagnostic Radiology; Visit Provider Radiology Diagnostic Radiology
DX: I83.813 Varicose veins of bilateral lower extremities with pain (principal)
CPT/HCPCS: 36478

== ENCOUNTER 2024-07-08 09:08 | Outpatient (OUT) | payer MEDICARE, SELFPAY ==
--- NOTE | 2024-07-01 07:50 | V.VEINS.HP ---
Varicose Veins Patient in today for follow up ultrasound of right lower extremity following EVLT of right GSV completed on 06/24/24. Edson Page MD personally performed the services described in this documentation, as scribed by Eduarda Montelongo RDMS in my presence and it is both accurate and complete. Eduarda Page RDMS, am scribing for, and in the presence of, Dr. Edson Conner and in the presence of the patient. knee: bilateral (Patient symptomatic varicose vein bilateral), calf: bilateral, ankle: bilateral and napoles: bilateral aching, cramping, dull and tender 8 40 years Worsened in recent months: Yes standing elevating extremities, compression stockings and exercise Reports muscle spasms of leg, heaviness and edema History of lower extremity trauma: No Superficial thrombophlebitis: No Family history of varicose veins: yes Has patient had previous lower extremity venous surgery: No Patient has previously received the following treatment(s) for lower extremity varicose veins: Reports none Does patient have a history of : yes Does patient intend to have future pregnancies: no Has patient had lower extremity venous scan with relux testing: No Support hose used: Yes Problems walking or doing physical activity: Yes How does it affect you: often has to rest and elevate legs secondary to pain Do you walk much: Yes Do you stand much: Yes Review of Systems ROS Narrative Edson Page MD personally performed the services described in this documentation, as scribed by Eduarda Montelongo RDMS in my presence and it is both accurate and complete. I, Eduarda Montelongo RDMS, am scribing for, and in the presence of, Dr. Edson Conner and in the presence of the patient. Status of ROS 10 or more systems reviewed and unremarkable except as noted in history and below Cardiovascular Reports: edema Integumentary/Breast Reports: itching, redness and changes in skin color Hematologic/Lymphatic Reports: easy bruising and easy bleeding [facility] Medical History (Updated 06/24/24 @ 08:22 by Ozzy Tomlin) Phlebitis of superficial vein of right lower extremity ?I80.01 - Phlebitis and thrombophlebitis of superficial vessels of right lower extremity (ICD-10) Thrombophlebitis of right saphenous vein ?I80.01 - Phlebitis and thrombophlebitis of superficial vessels of right lower extremity (ICD-10) Meniscal injury ?S83.8X9A - Sprain of other specified parts of unspecified knee, initial encounter (ICD-10) Migraine ?G43.909 - Migraine, unspecified, not intractable, without status migrainosus (ICD-10) Diabetes 1.5, managed as type 2 ?E13.9 - Other specified diabetes mellitus without complications (ICD-10) Pain due to varicose veins of both lower extremities ?I83.813 - Varicose veins of bilateral lower extremities with pain (ICD-10) Surgical History (Updated 06/24/24 @ 08:13 by Ozzy Tomlin) History of tonsillectomy and adenoidectomy ?Z90.89 - Acquired absence of other organs (ICD-10) Family History (Updated 06/24/24 @ 08:14 by Ozzy Tomlin) Sister Family history of cancer Mother Family history of diabetes mellitus Varicose veins of bilateral lower extremities with pain Social History (Updated 06/24/24 @ 08:15 by Ozzy Tomlin) Within the past year, how often did you have a drink containing alcohol: monthly or less Smoking status: Never smoker Non-prescribed substance use: denies use Meds Home Medications and Allergies Allergies Allergy/AdvReac Type Severity Reaction Status Date / Time ibuprofen Allergy Unknown Unknown Verified 06/19/24 15:59 Exam Narrative Exam Narrative: Patient has no complaints today. Edson Page MD personally performed the services described in this documentation, as scribed by Eduarda Montelongo RDMS in my presence and it is both accurate and complete. Eduarda Page RDMS, am scribing for, and in the presence of, Dr. Edson Conner and in the presence of the patient. Constitutional Documenting provider has reviewed patient's vital signs: yes Common normals: oriented x3 Cardio Peripheral pulses: dorsalis pedis pulses present Extremity Common normals: normal capillary refill General: edema Right lower extremity: lower leg Right lower leg: inspection and palpation Left lower extremity: lower leg Left lower leg: inspection and palpation Neuro Common normals: oriented x3 Results Imaging Venous US: Radiologist's impression: Heat induced thrombus in right GSV from SFJ and extends to Edson Page MD personally performed the services described in this documentation, as scribed by Eduarda Montelongo RDMS in my presence and it is both accurate and complete. I, Eduarda Montelongo RDMS, am scribing for, and in the presence of, Dr. Edson Conner and in the presence of the patient. Assessment and Plan Assessment and Plan (1) Phlebitis of superficial vein of right lower extremity: Plan Plan is for patient to return for EVLT of left GSV on I, Edson Conner MD personally performed the services described in this documentation, as scribed by Eduarda Montelongo RDMS in my presence and it is both accurate and complete. I, Eduarda Montelongo RDMS, am scribing for, and in the presence of, Dr. Edson Conner and in the presence of the patient.
--- NOTE | 2024-07-01 07:50 | W.VEIN ---
Discharge Plan Discharge Disposition: Home, Self-Care Print Language: Serbian
--- NOTE | 2024-07-08 09:19 | VEIN_ITS ---
Patient Name: EMMIE PINTO MR#: [id number] : 1955 Exam Date: 07/08/2024 Ordering Doctor: DR POLY SANTIZO M.D. RADIOLOGY REPORT PROCEDURE: VC EXT VENOUS RT LMTD COMPARISON: None. INDICATIONS: I80.01 - Phlebitis and thrombophlebitis of superficial veins of right leg TECHNIQUE: Lower extremity ga scale and Duplex Doppler evaluation of the deep venous system from the inguinal ligament through the calf veins. FINDINGS: REGION: Right lower extremity. THROMBI: Negative for DVT. Heat induced thrombus in right GSV 4.0 cm from SFJ and extends to mid lower leg. COMPRESSIBILITY: Non-compressible segments corresponding to thrombus FLOW: Areas of no flow corresponding to thrombus OTHER: CONCLUSION: 1. Successful post ablation occlusion of right great saphenous vein. Dictated by: Mateo Valerio M.D. on 07/08/2024 at 11:47 Approved by: Mateo Valerio M.D. on 07/08/2024 at 11:48
--- NOTE | 2024-07-08 09:19 | VEIN_ITS ---
Patient Name: EMMIE PINTO MR#: [id number] : 1955 Exam Date: 07/08/2024 Ordering Doctor: DR POLY SANTIZO M.D. RADIOLOGY REPORT PROCEDURE: FACILITY EST LMTD VEIN [facility] - OFFICE VISIT FOLLOW UP COMPARISON: None. PROGRESS NOTES: The patient reports improvement in leg symptoms. There has been interval reduction in varicosities. The patient has followed our recommendations to walk 20-30 minutes once or twice per day since the procedure. Physical exam demonstrates decrease in varicosities of the leg. Persistent varicose veins are identified along the legs bilaterally. Review of the ultrasound performed the same day demonstrates occlusive thrombus extending throughout the treated vein(s), see separate report, consistent with a successful ablation. No thrombus extending into or beyond the saphenofemoral junction. The patient expressed a desire to proceed with treatment of remaining varicosities after further healing of right leg (the patient has tenderness/pain and calf area after working out and long walks. The patient was informed that treatment was a process and would require several procedures/sessions. VEIN/ Facility EST LMTD IMPRESSION: 1. Successful ablation of the right great saphenous vein(s). 2. Persistent varicose veins and lower extremity symptoms. PLAN: 1. Endovenous laser ablation of left great saphenous vein when patient is ready. Patient does not wish to continue until further healing and improvement of new tenderness within right calf area which occurs with prolonged workout/walking. Nurse notes, history and physical were reviewed and confirmed, see attached forms. The nurse was present throughout the physical exam and consultation Dictated by: Mateo Valerio M.D. on 07/08/2024 at 11:48 Approved by: Mateo Valerio M.D. on 07/08/2024 at 11:50
[2024-07-08 09:26] VITALS: BP 122/76; PULSE 72; O2SAT 97; BMI 28.0
--- NOTE | 2024-07-08 09:26 | V.VEINS.HP ---
Vital Signs 07/08/24 09:26 Height 4 ft 8 in Weight 56.7 kg BMI 28.0 BP 122/76 BP Location Left Brachial BP Position Sitting BP Cuff Size Adult BP Source Automatic Cuff Respiration 16 Pulse 72 Pulse Oximetry (%) 97 Comment The patient's blood pressure is elevated. Varicose Veins Patient in today for follow up ultrasound of right lower extremity following EVLT of right GSV completed on 06/24/24. Mateo Page MD personally performed the services described in this documentation, as scribed by Eduarda Montelongo RDMS in my presence and it is both accurate and complete. Eduarda Page RDMS, am scribing for, and in the presence of, Dr. Theodore Valerio and in the presence of the patient. knee: bilateral (Patient symptomatic varicose vein bilateral), calf: bilateral, ankle: bilateral and napoles: bilateral aching, cramping, dull and tender 8 40 years Worsened in recent months: Yes standing elevating extremities, compression stockings and exercise Reports muscle spasms of leg, heaviness and edema History of lower extremity trauma: No Superficial thrombophlebitis: No Family history of varicose veins: yes Has patient had previous lower extremity venous surgery: No Patient has previously received the following treatment(s) for lower extremity varicose veins: Reports none Does patient have a history of : yes Does patient intend to have future pregnancies: no Has patient had lower extremity venous scan with relux testing: No Support hose used: Yes Problems walking or doing physical activity: Yes How does it affect you: often has to rest and elevate legs secondary to pain Do you walk much: Yes Do you stand much: Yes Review of Systems ROS Narrative Mateo Page MD personally performed the services described in this documentation, as scribed by Eduarda Montelongo RDMS in my presence and it is both accurate and complete. Eduarda Page RDMS, am scribing for, and in the presence of, Dr. Theodore Valerio and in the presence of the patient. Status of ROS 10 or more systems reviewed and unremarkable except as noted in history and below Cardiovascular Reports: edema Integumentary/Breast Reports: itching, redness and changes in skin color Hematologic/Lymphatic Reports: easy bruising and easy bleeding PFSH [facility] Medical History (Updated 06/24/24 @ 08:22 by Ozzy Tomlin) Phlebitis of superficial vein of right lower extremity ?I80.01 - Phlebitis and thrombophlebitis of superficial vessels of right lower extremity (ICD-10) Thrombophlebitis of right saphenous vein ?I80.01 - Phlebitis and thrombophlebitis of superficial vessels of right lower extremity (ICD-10) Meniscal injury ?S83.8X9A - Sprain of other specified parts of unspecified knee, initial encounter (ICD-10) Migraine ?G43.909 - Migraine, unspecified, not intractable, without status migrainosus (ICD-10) Diabetes 1.5, managed as type 2 ?E13.9 - Other specified diabetes mellitus without complications (ICD-10) Pain due to varicose veins of both lower extremities ?I83.813 - Varicose veins of bilateral lower extremities with pain (ICD-10) Surgical History (Updated 06/24/24 @ 08:13 by Ozzy Tomlin) History of tonsillectomy and adenoidectomy ?Z90.89 - Acquired absence of other organs (ICD-10) Family History (Updated 06/24/24 @ 08:14 by Ozzy Tomlin) Sister Family history of cancer Mother Family history of diabetes mellitus Varicose veins of bilateral lower extremities with pain Social History (Updated 06/24/24 @ 08:15 by Ozzy Tomlin) Within the past year, how often did you have a drink containing alcohol: monthly or less Smoking status: Never smoker Non-prescribed substance use: denies use Meds Home Medications and Allergies Allergies Allergy/AdvReac Type Severity Reaction Status Date / Time ibuprofen Allergy Unknown Unknown Verified 06/19/24 15:59 Exam Narrative Exam Narrative: Patient has tenderness to mid calf after exercising for 30 minutes. IMateo MD personally performed the services described in this documentation, as scribed by Eduarda Montelongo RDMS in my presence and it is both accurate and complete. IEduarda RDMS, am scribing for, and in the presence of, Dr. Theodore Valerio and in the presence of the patient. Constitutional Documenting provider has reviewed patient's vital signs: yes Common normals: oriented x3 Cardio Peripheral pulses: dorsalis pedis pulses present Extremity Common normals: normal capillary refill General: edema Right lower extremity: lower leg Right lower leg: inspection and palpation Left lower extremity: lower leg Left lower leg: inspection and palpation Other: Tenderness to right calf Neuro Common normals: oriented x3 Results Imaging Venous US: Radiologist's impression: Heat induced thrombus in right GSV 4.0 cm from SFJ and extends to mid lower leg. Mateo Page MD personally performed the services described in this documentation, as scribed by Eduarda Montelongo RDMS in my presence and it is both accurate and complete. Eduarda Page RDMS, am scribing for, and in the presence of, Dr. Theodore Valerio and in the presence of the patient. Assessment and Plan Assessment and Plan (1) Phlebitis of superficial vein of right lower extremity: Plan Plan is for patient to call when she is ready to return for EVLT of left GSV. Mateo Page MD personally performed the services described in this documentation, as scribed by Eduarda Montelongo RDMS in my presence and it is both accurate and complete. Eduarda Page RDMS, am scribing for, and in the presence of, Dr. Theodore Valerio and in the presence of the patient.
--- NOTE | 2024-07-08 09:48 | P.DS_ITS ---
Discharge Plan Discharge Disposition: Home, Self-Care Outpatient Diagnostics: VC Endovenous Ablation 1VeinLT (Routine) Timeframe: 2 Weeks Facility: [facility] - Location: Vein Center Ordered By: Mateo Valerio Follow Up Appointments: Patient to call when ready to schedule next procedure Plan of Treatment: EVLT of left GSV EVLT Tumescent Anesthesia: 500 mL 0.9% NS with 20 mL 1% Lidocaine and 10 mL 8.4% NAHCO3 Buffered Local Anesthesia: 10 mL of 1% Lidocaine Buffered Print Language: Thai Discharge Date/Time: 07/08/24 09:57
== END 2024-07-08 09:57 | disposition home or self-care (01) ==
LOC: VC 09:15
PROVIDERS: PCP Radiology Diagnostic Radiology; Visit Provider Radiology Diagnostic Radiology
DX: I80.01 Phlebitis and thrombophlebitis of superficial vessels of right lower extremity (principal)
CPT/HCPCS: 93971; G0463

== ENCOUNTER 2024-09-08 09:04 | Outpatient (OUT) | payer MEDICARE, SELFPAY ==
--- NOTE | 2024-09-07 09:21 | V.VEINS.HP ---
Vital Signs 09/08/24 09:09 BP 116/56 BP Location Right Brachial BP Position Sitting BP Cuff Size Adult BP Source Manual Cuff Respiration 16 Pulse 85 Pulse Source Monitor Pulse Oximetry (%) 96 Oxygen Delivery Method Room Air Varicose Veins Patient in today for EVLT of left GSV. Mateo Page MD personally performed the services described in this documentation, as scribed by Ozzy Tomlin RN in my presence and it is both accurate and complete. Ozzy Page RN, am scribing for, and in the presence of, Dr. Mateo Valerio and in the presence of the patient. knee: bilateral (Patient symptomatic varicose vein bilateral), calf: bilateral, ankle: bilateral and napoles: bilateral aching, cramping, dull and tender 8 40 years Worsened in recent months: Yes standing elevating extremities, compression stockings and exercise Reports muscle spasms of leg, heaviness and edema History of lower extremity trauma: No Superficial thrombophlebitis: No Family history of varicose veins: yes Has patient had previous lower extremity venous surgery: No Patient has previously received the following treatment(s) for lower extremity varicose veins: Reports none Does patient have a history of : yes Does patient intend to have future pregnancies: no Has patient had lower extremity venous scan with relux testing: No Support hose used: Yes Problems walking or doing physical activity: Yes How does it affect you: often has to rest and elevate legs secondary to pain Do you walk much: Yes Do you stand much: Yes Review of Systems ROS Narrative Mateo Page MD personally performed the services described in this documentation, as scribed by Ozzy Tomlin RN in my presence and it is both accurate and complete. Ozzy Page RN, am scribing for, and in the presence of, Dr. Mateo Valerio and in the presence of the patient. Status of ROS 10 or more systems reviewed and unremarkable except as noted in history and below Cardiovascular Reports: edema Integumentary/Breast Reports: itching, redness and changes in skin color Hematologic/Lymphatic Reports: easy bruising and easy bleeding [facility] Medical History (Updated 06/24/24 @ 08:22 by Ozzy Tomlin) Phlebitis of superficial vein of right lower extremity ?I80.01 - Phlebitis and thrombophlebitis of superficial vessels of right lower extremity (ICD-10) Thrombophlebitis of right saphenous vein ?I80.01 - Phlebitis and thrombophlebitis of superficial vessels of right lower extremity (ICD-10) Meniscal injury ?S83.8X9A - Sprain of other specified parts of unspecified knee, initial encounter (ICD-10) Migraine ?G43.909 - Migraine, unspecified, not intractable, without status migrainosus (ICD-10) Diabetes 1.5, managed as type 2 ?E13.9 - Other specified diabetes mellitus without complications (ICD-10) Pain due to varicose veins of both lower extremities ?I83.813 - Varicose veins of bilateral lower extremities with pain (ICD-10) Surgical History (Updated 09/08/24 @ 09:35 by Ozzy Tomlin) Status post laser ablation of incompetent vein ?Z98.890 - Other specified postprocedural states (ICD-10) Status post laser ablation of incompetent vein ?Z98.890 - Other specified postprocedural states (ICD-10) History of tonsillectomy and adenoidectomy ?Z90.89 - Acquired absence of other organs (ICD-10) Family History (Updated 06/24/24 @ 08:14 by Ozzy Tomlin) Sister Family history of cancer Mother Family history of diabetes mellitus Varicose veins of bilateral lower extremities with pain Social History (Updated 06/24/24 @ 08:15 by Ozzy Tomlin) Within the past year, how often did you have a drink containing alcohol: monthly or less Smoking status: Never smoker Non-prescribed substance use: denies use Meds Home Medications and Allergies Allergies Allergy/AdvReac Type Severity Reaction Status Date / Time ibuprofen Allergy Unknown Unknown Verified 06/19/24 15:59 Exam Narrative Exam Narrative: Mateo Page MD personally performed the services described in this documentation, as scribed by Ozzy Tomlin RN in my presence and it is both accurate and complete. IOzzy RN, am scribing for, and in the presence of, Dr. Mateo Valerio and in the presence of the patient. Constitutional Documenting provider has reviewed patient's vital signs: yes Common normals: oriented x3 Cardio Peripheral pulses: dorsalis pedis pulses present Extremity Common normals: normal capillary refill General: edema Right lower extremity: lower leg Right lower leg: inspection and palpation Left lower extremity: lower leg Left lower leg: inspection and palpation Other: Tenderness to right calf Neuro Common normals: oriented x3 Assessment and Plan Assessment and Plan (1) Pain due to varicose veins of both lower extremities: Plan f/u evaluation with physician along with left leg limited u/s Mateo Page MD personally performed the services described in this documentation, as scribed by Ozzy Tomlin RN in my presence and it is both accurate and complete. IOzzy RN, am scribing for, and in the presence of, Dr. Mateo Valerio and in the presence of the patient. Procedures Procedure Instructions Procedures Plan of care: Risks and benefits of the procedure were discussed at length and informed written consent was obtained.? Time-out completed for verification of correct patient, procedure and site.? Staff present during time-out: Ozzy Tomlin RN,? Mateo Valerio MD, and [place] [facility] Time Out Time_930 Patient prepped and procedure performed in usual sterile fashion. Risk of injury related to use of Diode laser and/or laser devices? __CR___ ? Serial number of laser used :? [id number] Control panel self test performed, electrical cords in good condition, floor is dry, basin of water available, fire extinguisher in close proximity_CR__ Polycarbonate goggles available and Laser warning signs outside of doors___CR__ Eye protection provided to patient and staff in room_CR___ Use of laser retardant drapes and dull blackened instruments as directed__CR___ Use of nonflammable prep solutions and use of saline soaked sponges to protect tissues as indicated _CR___ Length __30 cm Laser operated by _Dr. Valerio Physician verbal confirmation laser locked in place__CR__ Laser start time (date and time) _09/08/2024@__0945 Laser stop time(date and time) __09/08/2024@_0948 Velazquez _8.0___ Average laser use __1591 Joules Average laser use__199 seconds Pulse continuous ___CR_? Pulse intermittent ___ Amount of Tumescent used _225cc Evaluated patient for signs and symptoms of electrical injury __CR___ ? Skin clear at insertion site __CR___ Patient tolerated procedure well.? Left leg Coban dressing applied to access site.? Applied Left thigh high leg compression stocking. Will return on 09/18/2024 for Left leg limited venous ultrasound and exam. IMateo MD personally performed the services described in this documentation, as scribed by Ozzy Tomlin RN in my presence and it is both accurate and complete. I, Ozzy Tomlin RN, am scribing for, and in the presence of, Dr. Mateo Valerio and in the presence of the patient.
--- NOTE | 2024-09-07 09:28 | P.DS_ITS ---
Discharge Plan Discharge Disposition: Home, Self-Care Outpatient Diagnostics: VC Facility EST LMTD (Routine) Timeframe: 2 Weeks Facility: [facility] - Location: Vein Center Ordered By: Mateo Valerio VC EXT Venous LT Limited (Routine) Timeframe: 2 Weeks Facility: [facility] - Location: Vein Center Ordered By: Mateo Valerio Follow Up Appointments: 09/18/2024 Plan of Treatment: f/u evaluation with physician along with left leg limited u/s Patient Instructions: Endovenous Ablation (DC) Print Language: Kyrgyz Discharge Date/Time: 09/08/24 09:32
[2024-09-08] MEDS: 0.9 % SODIUM CHLORIDE 500 ML, LIDOCAINE HCL 20 ML, SODIUM BICARBONATE 10 MEQ INJ (09:05)
[2024-09-08] MEDS: LIDOCAINE HCL 1% 100 MG/10 ML MDV INJ (09:05)
--- NOTE | 2024-09-08 09:05 | VEIN_ITS ---
[address] [address] Patient Name: EMMIE PINTO MRN: [id number] date: 1955 Sex: F Assigned Patient Location: Current Patient Location: Accession/Order Number: [id number] Exam Date: 09/08/2024 09:08 Report Date: 09/08/2024 10:20 At the request of: JESSE DICKERSON Procedure: VC Endovenous Ablation 1VeinLT EXAMINATION: VC Endovenous Ablation 1VeinLT HISTORY: I83.813 - Varicose veins of bilateral lower extremities w... The risks and benefits of the procedure had been previously discussed, and were rediscussed at length. Informed written consent was obtained. Ozzy Tomlin RN and Di Mcqueen RDMS, RVT assisted. Time out procedure was performed. The left lower extremity was prepared and draped in the usual sterile fashion to allow knee flexion in the sterile field. Duplex ultrasound probe was draped in a sterile cover, sterile transmission gel was used. Venous mapping was performed with the areas of dilation and large tributaries marked. The total length was 30 cm from the entry proximal calf to 3 cm below the Saphenofemoral junction. The diameter of the left great saphenous vein ranged from 11.7 mm. A 30 gauge needle and 1% buffered lidocaine was used to anesthetize the entry site. A 4 mm incision was made with a scalpel and the saphenous vein was entered percutaneously under direct ultrasound guidance with a micropuncture set, a single stick was successful in gaining access. A micro-guide wire was inserted and the needle removed. A micro-set including a dilator was inserted over the microwire and the needle and dilator were removed. A guide wire was inserted through the micro-set and guided through the saphenous vein to the saphenofemoral junction. The dilator was removed and an introducer sheath was inserted over the wire until the end of the sheath entered the saphenofemoral junction. The dilator and wire were removed and the 600 micron fiber was introduced and placed and positioned so that it extended beyond the sheath and was 3 cm distal to the saphenofemoral or saphenopopliteal junction. Final position of the fiber was determined by ultrasound guidance and duplex imaging. Tumescent anesthetic was delivered by ultrasound guidance. 225 cc of fluid was delivered along the entire course of the saphenous vein. The solution consisted of 1000 cc of normal saline with 40 mL of 1% lidocaine and 20 mL of sodium bicarbonate. A final positioning check was made. The energy source was turned on by means of the foot pedal and the fiber and sheath were withdrawn. The total number of Joules delivered was 1591. The laser was active for 199 seconds under continuous pulse, average laser use of 8 J. Laser start time: 9:45 AM Laser stop time: 9:48 AM Date: 09/08/2024. A duplex ultrasound revealed compressibility and flow at the saphenofemoral junction immediately after the procedure. Hemostasis at the access site was achieved. The skin incision of the saphenous vein was closed with a 4 x 4. A compression stocking was applied. Postop instructions were given. A follow up appointment was recommended and scheduled. The patient tolerated the procedure well. Electronically authenticated by: JESSE DICKERSON Date: 09/08/2024 10:20
--- OUTSIDE RECORDS SUMMARY | 2024-09-08 09:07 | XMS_ITS | CCD ---
Author Organization [facility] Care Team Providers Care Engineer Sergeant Name Role Phone POLY SANTIZO V Admitting Unavailable POLY SANTIZO V Attending Unavailable POLY SANTIZO V Consulting MD Luis Alfredo Ruiz Primary Care Provider MD Luis Alfredo Grande Attending Provider [phone] DO Glenroy Benson Referring Provider Glenroy Benson [...] Facility (1 source) LORazepam Drug Allergy [facility] (1 source) Meperidine Drug Allergy [facility] (1 source) Midazolam Drug Allergy [facility] (1 source) Misc-Drug Drug allergy (disorder) [facility] (2 sources) Ibuprofen; Translations: [ibuprofen] Drug Allergy 02-10-2020 [facility] (1 source) Amoxicillin; Translations: [Amoxil] Drug Allergy [facility] (1 source) LORazepam; Translations: [LORazepam] Drug Allergy [facility] Repository Medications Current Medications Medication Drug Class(es) [...] 15, 2019 4:56pm January 11, 2020 11:53am [place] 5-Kle-Ivy-Fish Oil (Fish Oil) 1,000 mg (120 mg-180 mg) Capsule (1 source) Start: 10-15-2019 End: 01-31-2020 take 1 capsule by mouth once daily [place] 0-Sps-Lvh-Fish Oil (Fish Oil) 1,000 mg (120 mg-180 [...] Coding Summaryon 07-19-2023 Coding Summary HTMLBase 64 VqxeanzkYIr5aZy+PGhlYWQ +MS9IMMBpL72pjFEzuS3nN8 NMTElOSywgQVBQTElOSyIgb yCgMX1wiDXrHEJb IC8+DR3zGSQmAqbqiDMmu8F 0oMA8H58rcx2mLYuxkAR4FT NaNzKofbknc4ybzAy1CShbO mluOyBt GVLmxQ04QCE7uQ76Ng03iKD hxHInn2qpsMo9MfCsIRXtLF W2yYenXCfqu3UtZTBuX69az SUcf3F6 BBPqjUvorHFfMnLepHM4cU4 wFCjrwahle9tcqtjfPgj7wr 89yPUyl7Z0gDU1I0CotoV2G GJvbGQg YaohoDDFlN7eniiwt7znnly aYmXfPBWtVLa7UKm3SHHjhP ggCsZwUD53YGL4SACyjiYgS 2FsLWFs qArqTkD6l9Y4Ds0MH9TIAeu rK6HMKFJKOMrekVP+PC90cj 72F7TtEuijUhj0LYCsTSK7c FS7nW5q SMRgDLhqn0I9wWG8F2AxgbQ vqe2id5tpQKJxXRtyX55awN Vxy4N8HBPydLT5YUHdqGnbO iBzaG93 Oyc+ENRwlHsac6UkQnjsn0e eo5jcnRn8MesrQBRykoArdZ ylRAY8e0LuAk0qZCTnjBQ9n IJ5lX4d XnGkKoW0JCyeE456YcMkvZA pIqrpL80sB4QsqEP+PHRyPj g6QFGkjVboIT2kN8OhKOYfw mctbGVm lJhiIV8vUWEpjavyVAGynA2 vIECcC8i9CyHiVuV7GEfzY5 KpKQSztemnTp20nK9wReTrO sW5AWio P7AuqsY6MZOueGAlYZboAWZ 0D13mt4S7HKPuUZReHLI5bX V1nM9puPtltruypUWqkVnvj mVydGlj UYljSYsjC058AKJrrAvlDfE vZGluZyBEYXRlOiAgMDgvMT gvMjAyMzwvdGQ+NLZqNMN6g WxlPSAn qPNaPKyfIr6zcSyhrYgaVS1 yYVHfcvvnRMEbzN8jFJTfyF JgkSxeFK3nBGDwrabdh609P iAxMHB0 JQVnrKGsT1AhsX1kJgUzAXO oJGUoN5VrfDAbMPqfC752YG ggKcU8JPXqufEgZ9BoPTSgy WduOiB0 c3J2Aj7Pj5ZqpzgwK1HzpBW dShNoVtvbPAj4Y7YzKwkcxA I+DY59XSUyMV87UQk4DXK4a WxlPSdi TNApF1ZamN5yVuVzCHLbJAS kOyc+PHRhYmxlIHdpZHRoPS jqRSOyRvUasHqwLG4vOg5gB GVyLWNv yFmgiOUaGfGbb9jkRRNhNJn fRB9gaTqgW1WyjDO0YTIwb7 n9Vj41Z01cT4XpaUQ+PGNvb GG5kSB1 dA6cUrKzDwW6SKpoC073XwZ baOCeGmqli3otl2fleKk5Db N3IDFvqkZwtVnuKWG5n8BjI f77P16u IHdpZHRoPSIxNSUiIHZhbGl ovw4gtN2kEq4+YIJwjOI2lI P8hF5xYuVzIuX4TXddB102G nRvcCIv Fyegl9pfc1xavLj2WcJxEVP yxgXdnQtyFBW5m1RdDg90L0 QzgRyip6NbDcs1ht93qGYwt 9B1rPY5 I2SqISPqsxrpuLPasJjtZR9 nGYQirtheVFJbdS7qANSpH8 v8AmCaQhR5TBkuR8VvarH7Q GJvbGQg ZAOduFYRfR2ciogcb5cjate rNkYxUABeREb6MPe8QSYfwG pzAzYbVVX6QqA0CVG5fTJhj W0roHuu uuqdoD9lQcl+BGI9fXNqiUR MWK1mZxekgHE+OWOcSVN3vN hmSUeqHVVdmP6fXUGiQ2s0B iAwLjA1 NVspU5LcmoJ0IWVffRDlDPH vlCDNuV8yszpaw5talwcgMe ZpMACzBGr5DSf7BPUvbIvmP iBsZWZ0 VmJ9NBJ8kPJuvK4nmDfwtck gwF2rNzn+TriisGzjWBD4UX v6P9ZgUfu9GMVlzLomNN2dp GFkZGlu Cv7xxJwadLxgWT1oWEFawaj rj868DgTsl6tbNZVdhOKsRN knAKO5Z83wt6I2SZSvRXEwT UR9uJX4 uB3tpSujtcdbwFKqjEmgscQ xiOylCJaiVUjhR634VKNihC laYaIwDUh6E7ZrKwm2MWGub PmeCO1l cPTbIClpVr1ucRlnlCpoUA4 jMBPugycva196KaFpy7aqVN RuqQTqWNxuHBJ7F02xx3H4T CMwMDAw WZR8tCG7vW4qmLibrjsgyJK mdDsgdmVydGljYWwtYWxpZ2 80OHWjhTvvHaBmkCi4G5RlH xc4ZYRo tPwzBX6kiSXtBWyiQr8cuAp skQbiWX6tBWUqkpwcr030Pb Lgh0cuVWEamKKgXXhqBYX4N 15ji6D1 PRFlXPShZYR0yUA4oB7mgCc nbjogbGVmdDsgdmVydGljYW zkOQlqA707XPHjbMcgJlTbo GllbnQg CLiqWBh1U2IeMszfzWZ+PC9 4UPSeXT53vPBndXNln3ncnP e8SyCfBBAxKOW8mUabKPbxe 3JkZXIt Z10yjYDtl2K4NVUnkIghmIZ zCrGsxAU6pN8mHHszzyums9 acppkmYanog4mgld73cQ42E 29sIHdp ZHRoPSIzMCUiIHZhbGlnbj0 kwN6xTd2+LCKbrTJ4mEN8tK 1cLLPgKdX3CPcqR424XwQkj CIvPjxj z8iwg5qmhCn9AzM8QWNbmwI aoOahUGF4p4MxMh77N07dDV dpZHRoPSIyMCUiIHZhbGlnb n6knY2s Ii8+IAEojKE4gCC3uK4wKzE wFgL9BEzuE821LzMpmXInEa ysB47eK4WfpLO+CZKbAbd3V CBzdHls VV4ijRNyOAalTv1vSJJ3FrR xBwQvDGuyC1AkLFSzpcqzxb tdoTU0DPAyFPQwvB12Ru9we DogMTBw bUDPtG7adaeba5zyjmqvDmQ xCWRnMOf6GUv6BGJtfEmsYy QnKDO0HhK9CTH2tOUxgW8yf Glnbjog cS3kB5EvPJWbexpuIi58rM9 bEqVfGuP4YEypAnk+TEFXUk IYQ0OiEFWANV8RXCSYTI69Y K08aZEg e5B5rRX3N1BoILPegynehyr azOH5WOSoSJKejE36pIGeZK xyQy4si4S1d298TRPmHNHoe U28Fa3y iDdmBNXxsELMrT2ysdceo8r eejmpUdUdQAJmLMn6IFa3CW YofKooPySzYTY3BtV2ACD2z KSzzC3q xLtbyrixyM9jGqb+MDIvMTY sLXf5MzjljNS+HONgCGW7xF xeENzvUGIdlM2nBPVeC8s8M iAwLjA1 UZztD0RmZDMbwjhsUs00sJ5 lNvMfKdP6CYopP7LrjkS8WK HaaFMiAFnmHPM9F05ij8S3H CMwMDAw GNI0tKA8eJ7iuEhuicxcvCU mdDsgdmVydGljYWwtYWxpZ2 83HPIjoHzrBmX1IGloEPZgO I17RF15 tZDur2E8zIR1K4BpFBLlcxs xzlnokTZ7MWOrLDNogU85wT OeAKqpTg5gc1D5r380DPJkT DUwaW47 Pk8ekIvkYKHzbCYIvH4wfap si4rvizgiWtLoXTIbNNv7BI u3VWKwdEjjOzFaAIL5SnQ2U HE5iDFp yE8ghLxcepsgdI6wVlh+RkV MZRoXTR65FI71oIReh3A6qP V9C9IaTFSxmoiuxgoeuOY2H DAuMDUw xM90fHXjAKbvTk7fj8H0n64 3PBByWXOtiE05Vt6bvPdgLG CatEZHlV7sccnsk4qzuuzsY zAwMDAw TJn4SOb6JZRnyDqoLhWhTZM 0TwB7KAP0cWVpgQ9bxNkjpb hntO4qAnh+Z6S5X9KtCkaam HI+PC90 OHBzCK40vSBuvTAdg5gckSz 0ZmGmTTKrORR7zFqfLWsla7 OpMQNmA50qoWQvt3Y9QPMaj GxhcHNl ErUkhKR8cN2xDScauuqmk6r ztmquPyzlz4lolr40mS77D2 9sIHdpZHRoPSIzMCUiIHZhb Bznkw0t kW0hYl5+NVDqbHV9eHA3xX9 rSoBzBuH3WFfzD425CeMmxJ RxIlhjl5slg4xbuQs7EyDyK SIgdmFs wRalPTB1y5HfOm42B99tAIr pZHRoPSIyMCUiIHZhbGlnbj 6lyV1fTo1+ME4xg2pkwp29v D48dHI+ RUPvGGP7aUxuHCqaMNOspN7 tIUzbCrS9KHXvQeFwqC69eS AlYXtrOy3mzDlhjItbKG7vK TBpbjtm v133HzNhy0cvXAYzrRIuNFi mKAI5Z94xu6V5UHXkDHQaLW B0eID5bU7xrIfhwksehSPxg DsgdmVy oBcuLThnEKawL806LGEscDd eKgBfeZKwU8wcnlLSMX1lUi wvdGQ+RXPjQCY8nVbkIAfeY RBpvX0b FIFvM0g4CjKbRkD9ALytT1Z onoI2VDYfkSOmLFNuuAWTyX 7onaxqu7vojqrfTqIyDQCcN Hb5NSu1 NWXbwZisJgDqDQC9OoG0KAA 2jBUcaH5vdNovzfusbC1kBq c+RklOOjwvdGQ+BCLpDFA0q WxlPSdw MCUcuY5iQYMfJ0q9TmHcWjR 1RDxlX3GgdmS5YLYueHRiDL ZklLKZhC9kxkwau5zcxvwyN zAwMDAw XIi2OEu4STVtzVkjZjVsCIA 0RaX1DWK1aBGrzK9dqPpogi wftS1qZiu+TVJOOjwvdGQ+P HRkIHN0 fBfaQNpbNNTatH5eZYXiD9g 7YaVsTnK6URbpM7ChjdG4RX PldHNcFXRijAKDtB8popdja 2xvcjog YvXyRZUqCKf7OEd4KHFjyXv tBlPvASY7LnX2BUG9oEPabS 9umRdgwijfcW3kUfe+UGF5Z SH4OQ33 KD57U6MnPhvbdQMgzXG+PHR hYmxlIHdpZHRoPScxMDAlJy SmzTzkLL6zSo6eLUCkGHWla GxhcHNl OiB (more content not included)... Normal [facility] ED Clinical Summaryon 2022 ED Clinical Summary [facility] ? Urgent Care [address] [place] [address] Clinical Summary PERSON INFORMATION Name: CHANTELLE PINTO Age: 68 Years Sex: FEMALE : 1955 MRN: Acct#: Visit Reason: Skin problem; LT UPPER ARM SKIN PROBLEM Arrival: 07/09/2023 18:35:15 Discharge: 07/09/2023 19:35:00 LOS: 000 01:00 Check In: 07/09/2023 18:35:15 Checkout: 07/09/2023 19:35:00 Address: [address] [place] [address] PCP: Luis Alfredo Grande PROVIDER INFORMATION Provider [...] Adult Follow-Up: With: Address: When: Luis Alfredo [address], [address] [place], [place] [id number] [facility] (1) Within 3 to 5 days Comments: [...] verbalizes understanding of instructions given Comment: Normal [facility] ED Patient Summaryon 023 ED Patient Summary [facility] ? Urgent Care [address] [place] [id number] PATIENT DISCHARGE INSTRUCTIONS Patient Information Name: CHANTELLE PINTO Age: 68 Years Date of : 1955 Reason For Visit: Skin problem; LT UPPER ARM SKIN PROBLEM Arrival Time: 07/09/2023 18:35:15 Primary Care Physician: Luis Alfredo Grande Attending Physician: VIOLET LOPEZ Comment: Patient Education With: Address: When: Luis Alfredo [address], [address] [place], [place] [id number] [facility] () Within 3 to 5 days Comments: [...] health care provider. ? Apply or take iylk-sdd-guekpsz and prescription medicines only as told by [...] time outdoors, (more content not included)... Normal [facility] Urgent Care Note- Provideron 07-09-2023 Urgent Care [...] history): All Problems Asthma / SNOMED CT 498525679 / Confirmed Migraine / SNOMED CT 63955247 / Confirmed Objective CONST: -Well-developed well-nourished. -Acute distress: No -Vitals: reviewed. SKIN: -Gross abnormalities: Patient has a area of redness on the left upper arm above the elbow, no significant red streaking up the arm appreciated no lymphadenopathy appreciated around this area, mildly warm to the touch ENT: -Pharynx pink and moist, uvula midline tolerating oral secretions without any problems. NECK: -Supple (dwya-jy-vzfxr): non-tender. CARD: -Rate and rhythm: Regular RESP: [...] Plan Assessment and Plan: Diagnosis: Insect sting (CLN20-VB T63.481A), Elevated blood pressure reading (XTN59-VX R03.0), Cellulitis of arm (QNA09-ZI L03.119). Orders Orders Pharmacy: doxycycline hyclate 100 [...] on: 07/09/2023 19:41 EDT] VIOLET LOPEZ Normal [facility] Care [place] 023 Urgent Care Record [facility] ? Urgent Care [address] [place] [address] PATIENT DISCHARGE INSTRUCTIONS Patient Information Name: CHANTELLE PINTO Age: 68 Years Date of : 1955 Reason For Visit: Skin problem; LT UPPER ARM SKIN PROBLEM Arrival Time: 07/09/2023 18:35:15 Primary Care Physician: Luis Alfredo Grande Attending Physician: VIOLET LOPEZ Comment: Visit Diagnosis: Diagnoses This Visit Cellulitis of arm (L03.119) Elevated blood pressure reading (R03.0) Insect sting (T63.481A) Skin problem ([id number]) If you received any narcotics, sedation, or [...] sign any legal documents With: Address: When: [address], [address] [place] [id number] Business (1) Within 3 to 5 days [...] and treatment you received today in the [facility] were for an urgent problem and are not intended as complete care. It is important for you to follow up with a doctor, nurse practitioner, or physician?s transport assistant for ongoing care. If your symptoms [...] so we can reach you if necessary. [facility] has provided you with a complete list of medications post discharge. Please inform your publicity director/provider of your visit and for further instruction on these medications. Any specific questions regarding your chronic medications and dosages should be discussed with your primary care physician(s) and/or pharmacist. New Medications [facility], [address], [place] [id number], [phone] doxycycline (doxycycline hyclate 100 mg oral capsule) [...] some p (more content not included)... Normal [facility] US PVR Lower EXT Complete Bi laton [...] MD Transcribed by: CHAUNCEY Technologist: HUGH Normal [facility] Consent for Treatmenton Consent for Treatment [id number] D:127 Normal [facility] Physician Orderon 05-29-2023 Physician Order [id number] D:127 [facility] Coding Summaryon 02-07-2023 Coding Summary HTMLBase 64 LtpeebafQVg5sYy+PGhlYWQ +DM7QCUTxQ54rjJXbfY9DJ7 qSWG0ZWYUUWATTYM4DGV0vq KR2XDwqI8EjcnWv UxmrcUHuVY54FOx3NGS5wKq nZKvehP4glQLuC6y9YfPyOJ 97jJ69GWreVRMqGlU2DsPkb jsgbWFy P0avZhBflEZdRqv+PHRhYmx lIHdpZHRoPScxMDAlJyBzdH znGX2vYq2dJCJpSHKfeMico HNlOiBj v2cwBZOxDGwvPX0ozHvhR6N xiSZ5YDVji7w5Ie88fEW+PH ZjPSI0fLbqCJamo927BgGqw 9nqMBE8 uFIuPTxlADX4V35no2M2CQB bHWMzISK4gVX9vV1dcElgkw cfW3HikXPbGpU0HFA0wSRnd P2nqCkf hfnkiC9iKcz+D99XIQ8THNE TDN6BTng0E6MxEdqprVI+PC 70QRIdCO42xWBitVKje2vop Wf0LfPb GPLnTIC2jMvbMDism2IwYZE qF20tmEApy6H4HYRcfYhnlH DaEfJhzKI7aU3qGSuaxnebi 2hvdzsn Jgevf7jwpe04hT80H75gXPd kQUQiCPF2HBPkKTSruZwund 2neK3qEh5+USpdl6dzv7oqc Mm1FtVg ZYLdstLmdZsiOXA7a9IxOr3 4O5GvhGwsk5YzJeg1nv28dH Lvv5Z8pZM8RKbuGFGrkB5cJ WxlZnQ6 PISuReWjeF86tEHfLMdzSb4 hjOlgmRowFD3gOQBksdgjYY MflC1xXNXbsDKgoQbcEN9mB TBpbjtm x948SfBrJXP4CFPitMSeV2O rlP3eNhOrIWOsUGNbW2DafD VqLChuT833CJoxRsL2GKPhe xCpY0Id IEFdjXrzLgI9r4L8Zr2Hu6N njempLAE1QRcaIXUkHiA8Jc FoIsP6U4SkIyt5YXRdaDkzP Y1qJ5Za DGSpeuidblrfbCL1XRTvLCE naL06iKRcLQvaEc2pg8E7x3 25EVFvOPSvoJ27Pu3prJuyA TBwdCBU tZ8yeonwf8mxvrzqGuFxWVE wEUc7LYn2GBHybWccQeTnDB X2SyQ4YAC7uFLlqJ9uuRior itpaE9n Oyc+D34jwI5rQUO1ZKP3bvo mRTBdagIgRM50XV41U0DmBa wvdGFibGU+PGRpdiBzdHlsZ J2eIpUo h6lej6DmQYeuK0AuFKSjMWk rEgf2EKYiDJV7zHW4xW3dAI GsDWgxw9W7cZE8C8WifxSsz b9wk2sv EUHlRCqnF57rtOEbg5L7RGN arOB5ANLmlThxVqVgtY29Cm c+FROziJdme5GfWtbrg9llf 6cayIs1 GgXhYQMkteCchEpcAWX5m8D zZk12D04bDSznRLUhZLFsWZ QgUKGpsBrfhl2toJ9wUs4+P GNvbCB3 jNT6yO2zIHBaWfW1KJkpD39 1YfJljSTsMsehp0yfm8amvF t8QlYlKAYkayWxbNcpEGP3a 0SmEl12 B36vUAjfLIWwFRVmBKSkDOF ynHogdq5xfX1qBw1+PC9jb2 thea69dT30bVP+OMUeLHF9b WxlPSdw SQOtiX3tCUjdHjH9KNNsJyC qfG91aAZmIWzcKt2nqDwtcS zvQI6wEDEusppqg524LiNcp 2xkIDEw bOFtJWgfSIT5Q58pj2X4IDB dGDRmGTU4rWT7xH6ebChciy ogbGVmdDsgdmVydGljYWwtY AhqY072 IHRvcDsnPlBhdGllbnQgTmF sJTb3Q0QhDdq9LGPyyVyvLL 7pqNXvAMekIq4eeKsbjAnkU F0pDTZc ttjuo881KdHvd4ldXRXqiSP xZBcgRXK0H63ir8Z7QMHyYT FkOIY1oMB0rO3ooQlcjtndq GVmdDsg wfOuxZgqOAixVXbsJ819NQN ebIfeCgKpnmLjFICwdKS0YX 27EG31eZQhy8I5xQM2I7CiN GRpbmct jxeygLH8OCPhSRYnnM17Xd1 sxKqzAl5hAGGxZOC9DHFzoW XdG6FupK1nCnXwSILpYVYjW 3RleHQt OXkzD342ULwjQgV3DDYwuhR iD9ZxRWIauTmhTjL8g5Y3Fd 7XK4B9LY02UP84hQMvl1X2q OR4R2Yq CFUrgkasqgrizIP9OXFjEFW boM69Ma1psCjqOy9vCZDiXR Y2CZKyxTHcG7MqpU7eCgOuW DAwMDAw I0NqjACuFJnwM089MNddWaZ 6RTUgcjBvB6OlYHInbBktXp T9k6C1Vc7UXRe4XK76QG98r RDfj0K6 lSA3G1HiXNQecjiyiutnaIK 4BPJqSNSedL56Sf7jcVaqUb 3xRYYhOQB8UJGhhLDiH4Ekx D3cYwUq TPQwUQEiY6MplBVlJGelY11 5PMjpWsR1FKYuriTyZ1YnYS NtiNrrAoB1m2Z6Do2YBHQrQ K21HAU3 dDN3WW74WZ04W3XiNnrajPF ibGU+PHRhYmxlIHdpZHRoPS ioJVLyKqHzrJfjBM1lTk6bM GVyLWNv zTxurXDyCmVyj9jiBMItCCp eFZ3fhItuD4FzwPB3LHCjh0 n9Sd85T62aN7MqiIM+PGNvb KB5rIZ6 uU1eUsMnTaH7ZCrvW834TfG fqIUqPcplk0yjo1noqMs0Ar O9VCPeysXsjCofLQY8p8FsB p29L28p IHdpZHRoPSIxNSUiIHZhbGl bja9kfZ5cCy9+ZPQtrQV1sV P1wO6tMaZmKbP7DUvxL614H nRvcCIv Twpxl9idg1sdlFs4SpTyXXI qjgVveLupZSU7s4KnIz28T8 PuvVrfh3KqMgn9ra50pKFtv 7N3dSG7 D3ZbEBKbksujpPTwxPgeAM2 mLJPikcicCRLwfJ5qYIYqB4 g9IoCiIxR9KGjuJ5FreqQ3X DEwcHQg NOfxJMK8C21ev5P1HDGwZXQ gLRE0xPC2kF0hsNqfmcpybY VmdDsgdmVydGljYWwtYWxpZ 246IHRv pFiqGTRfcC4hUYDcqCBblSm vSL0tSCEsuaslUubDR6BVYr YUWNWPNLKJG5OgONofrPA+P HRkIHN0 wCayKYyjRKBacA4hURJbT1q 9VrNsWdT4NPojU6CiQYLtpw yrIi30pF8oWkKqNpI8NXlrM 5JvvhU2 ZDAmbCCbWTmbTQH1V65yj6H 2BSYlDOBdYEJ7iGK0dM4rjB lnbjogbGVmdDsgdmVydGljY WwtYWxp H784AKYovTuiPcYmSfH9EmF 9KIK6W8LeSai9VTNxsUqmZG 9daKXtLBvmZn1brQbkuFirD P5fOOXc zuduGVDndB3sQFTjaZYrxPq yPH4fXWLvypvku162QdFmWO S2DEWouFOfI2FbxO5hCzYmS DAwMDAw X8SjsVCsWGtcI054LSdxOoK 5FONrifAfA6YpROTnxWduUm N7h5H7Qo71DhILMUEvdahex GQ+PHRk UFA4wKqcLPseGEMwgF8sYNS qP9h0DwOfDoR8FBpgK2UvAQ KuecqePn06cT9eQlEmTkI6L EykU7Wb isR2BBVmnFGzDTifDCT2V48 yw7X7QZFoTXUbDYS5yHW9wL 1hbGlnbjogbGVmdDsgdmVyd GljYWwt UMqtJ509GWBooOgfOwNWTGD MRTwvdGQ+EBOfXOQ7lInmBL htXAKgaY8sOVWcX5l1JsXlE iS8CUod D8BnLHAgwroxUm99fH9sSxG gQbO7RGlrA4YcqyC4WQGkzA ZpNNbxGIU1K44xj1I8DMRdD DAwMDA7 zQV3pL8hlVkcektqnNSasBv jweGxtTwsHJbtYFigW950NV ToxXetIp7JRG63CY17S3LiN jwvdGFi bGU+PHRhYmxlIHdpZHRoPSc uBZZzLuNazVrmVH0gFk4cUQ OlJWQuqFhxxHNuPaReo7avI XBzZTsg RY1ioEnyZ6BbwOG5HONyw6f 5Me71F01vS4ErbVJ+PGNvbC B3gTE2oT1eWsVvAhJ8FJjvC 249InRv gOAlBgbec9znc2vbjJg1HqJ vFPOoxtLhcIzuOKA0f3ViNc 78I34rXQhqOZElPLZsPQLbW HZhbGln hp3erF5iJk1+DAOvaKS0hST 5xH8gFfGiShT6NLsgF492Yd AddWVzGwjqB25kT0GdsFS+P HRyPjx0 EGUqoJfxBJ5egAMiFMmtNk2 oJDP1BtPcJyRsBFwiI3IjLS ChdbymmucmoJO0SAIvEQIig J28Cw6t sWaiFh0wYERbYFF0DEVwfLW cO2DyhC1nFsJbYOYnGMVeM3 UfmFFeAHctI526VYujSwM3E HZlcnRp W5BaMPGinQhvNaS8e3M8Dt2 HgMyitNMqHR1tAfQiOXa6T2 IlElo2UDIbkZmaSE6kxOKoB DpfRp3p vEfmaNecCN1pHEWrfriom11 7OlFwa3fuHVCskCUnFQgnTP C1L05kv9H6BGXbJLVrNYM6p SI0yU6l bGlnbjogbGVmdDsgdmVydGl jVDuhRBaeU989QRZfaCyeHc SHRya2F9QtGox9ZWBtdJydO X5mgNRb FVpbLe1exJfauWtuFO4rZJP dnyrxj601PgPhr1drEIKktA DaIUqlGDX4A88xe0T2ZNMwR DAwMDA7 hEP6cF6rhKhoiljpfAXywSd dszCsuYzdRJptVFnnC131YQ GdoGtnCi5NOsp2B5RsMyz1Z CBzdHls KR6ciDEoQCayYm3ueKixvNt mUS3xSLVuiviah189XoLnm7 oyGFLiyWUmPXacPKH5Q56ts 6C4KXUj GUUxKLO9aHU4fI8jeWlinxb gbGVmdDsgdmVydGljYWwtYW ugW503QQSgzVknJrYswFTjI jwvdGQ+ IF37bx32D1AvAwpwEaj9YWT iECL6bSB5sP1aMBPpERwhn9 B9hBU0C9JhzuFvlz7ve2qdE XBzZTog Y29 (more content not included)... [facility] Coding Summaryon 02-04-2023 Coding Summary HTMLBase 64 FqpuhnppWBe6zTz+PGhlYWQ +WZ0MXZOlC12hjEHwpU5JV6 zOUX8WIZPAJMOSJI2UJI2xs YH2CHdgM5YedjPk AtrsaPQwSD79GGm4BSD9uZx fGFqwsG4nsYYkA5i3BeGqSW 31pU00TSwjDWVyUbN8LpRdy jsgbWFy W2sqOfQxfAWpDyi+PHRhYmx lIHdpZHRoPScxMDAlJyBzdH mpGS0uYz1mNRFxIAIaePynz HNlOiBj x7mwQWGvAMqhFX0qiVtgR0D bkSW4SMZpw9f9Eb67nNE+PH UtIKB6rOflUTjrj844ThRur 1lsVBY1 zSXnOFhiSKQ8J11aj5V5DQJ pRATtQYO6bBI0fX0raNwfrh muM3GmjJBxWkX6SWQ6tUSdx Z6czHah xfdvhJ9bXyn+H27ECH7IJZS AWI6MDpm9P9VmHsnewAG+PC 53KPVrDB47sJImjBYuc2vxu Xq3TiXw VLYkDMW3eLgaYZqdg7FqDHR rT05uqDJbk6Y0AEVdiVgzkD IrWzEiuQJ8cX8qHRqhoyuyf 2hvdzsn Drbne0ewvm59rF63S66bINd uFSTjGMH5JHAhUIDxmGhbbh 6ynR2jLz3+POjuk0umt9isx Zh8RrBg URXkhqUmeLcpWEP2m4OoSe1 2H3ZqxOehg3MpIrl2qk88vJ Fus3Z0kBU8ARipJAOieK4cO WxlZnQ6 BPIdNcBpqU24iCSoVXngQk7 roMffkHghAV1hMXKzgtbwPG MmsU2gMPGbcJGjiDnrZE1kV TBpbjtm y446TvFbINJ2DLVqnBQtP2W czW3wArKbOKGeLNIjT5JvuC YcVTjsF839LEuwNyZ4RXNgo qVdB7Jt DYGhiMbxPoC6i5Z6Ed1Nj1X vgelqHVU4RJvsVXBiUkV8Et XuByJ7M9LoRjm0CTKaxTgfU T0sZ3Oo YQJjqiunqfmksWU5SLFaITY elL09kOXdSRlkBs8ld0E2e2 98AAGkBYMgkP55Vd8oqGymY TBwdCBU bT8wffwte5wljpneLeBlTQZ fXHv4NBt4MDVelXcpZgRuUM N3MbB7GOV0bSHygG2crCfgc mnunA9p Oyc+P70abH6pDPS2KDC1dax xDFAdssDjCA29AB87A7WpNb wvdGFibGU+PGRpdiBzdHlsZ Y2eRtZm p4sjd3YvBFnuP9AtIOVmLSx qKuu9QHLlMXH4fXY2uU9pXN ItMBhzk1O7nGW8P4KgrlGzq e5mh5iv DIOrYBwiD20qeUZpk7X7QMC gkHT0YTBnmQoqKsCrnN65Lo c+GLKwnQtjs8FkBqimb8ana 6qjzQl1 AoLtNLPfvoLqeDhrLLZ2b9Q qNo79T94kLQucMENzJOFiYW NkDBFsqJqdpn0gjH3rPc4+P GNvbCB3 zCU6hO3oGPQpLaL1GBjxV64 4ReUzhKLpPhnwy6kne5ikiO h1CpPcVSUcvmXwsVjrWXV2j 0MeQf13 U20yYOxsELOaCZRoCGMlPBL snIlylq7bhT5jYt2+PC9jb2 pttr35lZ94uXM+YKRyBJZ5r WxlPSdw QQXfgK1wSVvmYkB6MGRhOnN tqG21bSVtNXnlLl8kdKnnsS baDO4pVNDtucvxx300NdBoh 2xkIDEw aVLdQAvvRON3J37bd1M4DRJ hQWTrIQU0yYS0nU0dbZpzyx ogbGVmdDsgdmVydGljYWwtY ImpB155 IHRvcDsnPlBhdGllbnQgTmF cHSe0X8GeAeh9MANvsXfnDE 2osIJyWMfxXc1szKtarDxzX A9gBYPo jsewz672EeHej3koTKTiiWX qJKquCWU0O96fc3G0HSMuHL FwWKC0fTN6xI0tnYvndcuvb GVmdDsg qkGigSysREdgPSdgC981LFW zsUhoEeBhawLcOZIckJL0DU 04AS16eQNlh8F0eFP7J3OmF GRpbmct cjzzySD3KEZoEONqjF66By4 fbRicGz0aPSYvYCW8CRCgxW VxH5XteY6kKdUbWLSjIYAcZ 3RleHQt VChoR235QIhhXdH3XMEzuhB eH9CpYZZogOaeIaR0w6Y2Ev 5OE5I8JY78PP18uYDad5O7a FL4O8Pk EOKpxphzsjugqQS3DLUgEYL tcK30Sr5zsIfwFp1lSSYvMD G1MDHeaUIwB4CivM9tPbXoO DAwMDAw I0YykKNxKAuwS645WQshBtE 7RVXetpKzP4CxXMHrdUeeLa T8n1D7Im4XHQx7OT58GB02e CZdj9Z0 dYX8J0QxDATftyqjnozxiOX 2ZQHxIIMwaY56Py2dsFswRo 2yWXOaAXN0IZWgrMNsK9Koi T5vYlRy LIEcPRYvA1XtfTSoKXheL98 6UEeoHlY2KKJijsIyL6NgMA WyzUtpBaC5f6O0Bb5CDIPrX F33CCP8 xDP3QB11BV16S2SdVtomyLM ibGU+PHRhYmxlIHdpZHRoPS hhXYMaYxWgnLfbZM8gOl7rE GVyLWNv uFhsbVAuYnJhz2chEYBeNWs nIM8llQehQ5VbzBR2PGWsm1 i6Oz33L03dP9RokIM+PGNvb OM0cLA5 qB2hPtXjBnN6ESzeY866DdX yyCOlSxcsb0ltz5ppzOm5Hi D2DVMcjnXdqOchOEH5y1QuY w21F26s IHdpZHRoPSIxNSUiIHZhbGl huf2vlM0lDh9+LPBhtVF0eZ G5jO5gUjIaEmU5UOojH139G nRvcCIv Yqmgt1uhe1lqjZx9WxLgRYT yoqPwtKtlIXW3t0NhVy12Q5 MvsElsi6ZuQki1lu74dWTeh 4Q3nEX8 J9MmZCCfbnwogXHuwBdbKJ4 oPRUbmapbSIRawI5mLRLxC7 o1PlZqToL1XLhtN9QudeJ2O DEwcHQg JMxmFLN3W18qa5U5KPZcRBN jUSQ9nZE6bW3hpXubqcycnR VmdDsgdmVydGljYWwtYWxpZ 246IHRv kPqdPVVdgK2jBAGutUTmyBy nHK7kYWYrvjbwXshUR3WRSk USVQWPXMPGK4FwTPnhyEV+P HRkIHN0 bNzwQRmwDICtfO7uXVDpT2u 7VlEkVcK4WOclE4LyASAjst zwRv50lN4iGsBuCeP9BHcbT 1IxvqB8 KDXsxLJgPCygSBW5Z37df2P 8DDHgTEHiVJK8dOE0sK2ixF lnbjogbGVmdDsgdmVydGljY WwtYWxp S299YHHclEypAmAyEcM5HnP 2XWF4B4ApHpo9UHBdcCzzTO 0shIZbIFioPm6rcXbpaEbgB E6wOJXk wjwpOZJfaG3pLXQdzIMsnMg nDZ1fUMOdhfizt990SqBkOC B0HKUnnKBjW0RklO2fUcKhP DAwMDAw S8NtbOYjHPsqR706GXpsQaH 3DEGpwtXzK9LyNDLtsNkfDg V1g7R9Mg45IuDOYNJlwysgg GQ+PHRk MHS0eEfpYDklSFSxhF3kJIU kD0a2EeJsWiC1VOppG1MwGK JoatxwCm49yR7sDxIiWkX0M OgjL6Kp eoE0VHZlcQLuIMujRDB3H32 xd2Z1TZRfWSMjIPY2sWB9zN 1hbGlnbjogbGVmdDsgdmVyd GljYWwt GGqpB810CEEjpAuoXfPMVYH MRTwvdGQ+EJKgKYB9aOwrPV vnCGBhuV1yDANdE6w8QiUlJ iA2DRqv G1RuXBIltuaoVz30rV7mQnF hIgG6AKmlH6TijbO0GXXiyA TzQEcwBPZ5O79ed3V6AXXwN DAwMDA7 gHF7oZ4cmNrklmoziTVrwBb kxaTzhKkaRPrnBFbnL630VH AvbDpvVs0KUL15CD74G8MeX jwvdGFi bGU+PHRhYmxlIHdpZHRoPSc wOIWiRiYymKejHA6nEm6tGR CaDPRqyKcpkEWbLiFoq4qfQ XBzZTsg OG4heGgkF2VndVF6JWQqf3r 5Tb13Z99oH5KkqXV+PGNvbC M3bVA9tE7jXtLgJvX7GZxwF 249InRv xURvFzrva0veh1esmIj6GlB sSSPtjtIerXvmGTK9o0IkQf 73P67sULeeXXRfMSBzQMMtZ HZhbGln fj1urG0gQd3+CCRobMO2mUV 9mQ8kPbAgRaQ2CYggM147Ed NpiEGrMrukC61pN9RgbIA+P HRyPjx0 CXTlaWszIR7ocDDoDCinNn4 pMJP8SqGkFhAtQXkxG7GjMB JbpxljylkroRB8CINiEPNhj E31Yw2d sOluWz7sVRVyXZF4DQMglEK iP3GgpT5aCmHsSUAzJMUcJ3 JlwKXpOGtwX189EYybDiZ1K HZlcnRp O0DdFEXgzUssItL0b1M1Rr2 QqZmlzHLcRY8dSzIgVVp4J9 IsYgt9BUNznIuoEB5gwQMzH XyaRp8m aBedxUqpZD9eWRDidknho96 4TgJsu8cdCDPbfVKuRNtsMM N1T55xs6C9VHBgTYGsHUT6z SL0vB2t bGlnbjogbGVmdDsgdmVydGl mLDqrIRlmH029JBPjaCczBb YYNuh5L2RiVvd7UNJkbPbwA K5tsORn STxhOu5zrEyeoInaDA3lCBX nhtnly012AzUbh7gwRGXxyU VpGMivMJS4X62bx4R3YLVkQ DAwMDA7 mNX8fX7ilUqdxvtlyIXbwXq lmoIojNwiRMimPVftD731HZ UlwTxtJz2FQtw4T6DvIlq0I CBzdHls MX5ilDVxKImsWu5hqUreyPz pBH0aGZJxypvwv476JwSso6 smKMQwlUYpBOpeKXO3T19yt 3K6KDPq UGIaRQF8bJI5gK1jcYvohim gbGVmdDsgdmVydGljYWwtYW niO659WJOgaGthSeJklTXoW jwvdGQ+ PC31yf69N7HiRhxcAqc1UPB zBOJ0gYT3nD1rYOJsESpmr4 N1pJH6Y7SoosNbtv0tb4dnZ XBzZTog Y29 (more content not included)... Normal [facility] C Urineon 02-02-2023 C Urine Urine Culture ordere d as a result of parameters set on specific urine dip and urine microsopic results. >3 Organisms Consistent with Contamination Recollection suggested. [facility] Comment on above: Performed By: #### 6 [id number] ####[facility] (DEFAULT)[address] [place] [address]679 Provider Orderson 02-01-2023 Provider Orders [id number] TGTIFF Normal [facility] .Auto Diff 1on 01-31-2023 Auto [place] % 8 % Normal -12 [facility] Comment on above: Performed By: #### 1 [id number], [id number], [id number], [id number], [id number], [id number] ####[facility] (DEFAULT)[address] [place] [address] 46235 Baso Abs# 0.0 x10 Normal 0.0-0.2 [facility] Comment on above: Performed By: #### 1 [id number], [id number], [id number], 8110345, [id number], [id number], [id number] ####[facility] (DEFAULT)[address] [place] [address] 84348 Basophils/100 WBC (Bld) 0.6 % Normal 0.2-2.0 [facility] Comment on above: Performed By: #### 1 [id number], [id number], [id number], [id number], [id number], [id number], [id number] ####[facility] (DEFAULT)[address] [place] [address] Eos Abs# 0.1 x10 Normal 0.0-0.4 [facility] Comment on above: Performed By: #### 1 [id number], [id number], 8686536, 5914822, [id number], [id number], [id number] ####[facility] (DEFAULT)[address] [place] [address] Eosinophils/100 WBC (Bld) 1.8 % Normal 0.9-4.0 [facility] Comment on above: Performed By: #### 1 [id number], 7509205, 2501458, 0297387, 39986238, 0205657, [id number] ####[facility] (DEFAULT)[address] [place] [address] Lymph Abs# 2.0 x10 Normal 1.3-2.9 [facility] Comment on above: Performed By: #### 1 [id number], [id number], 4798500, 7096717, [id number], 1755389, 0603290 ####[facility] (DEFAULT)[address] [place] [address] Lymphocytes/100 WBC (Bld) 37 % Normal 14-48 [facility] Comment on above: Performed By: #### 1 [id number], [id number], 6132092, 9895403, [id number], 8522566, 7364165 ####[facility] (DEFAULT)[address] [place] [address] [place] Abs# 0.4 x10 Normal 0.0-0.8 [facility] Comment on above: Performed By: #### 1 [id number], 8369491, 7010034, 5504318, 85804471, 4998656, 1738972 ####[facility] (DEFAULT)[address] [place] [address] Neut Abs# 3.0 x10 Normal 1.5-9.2 [facility] Comment on above: Performed By: #### 1 7982473, 3736341, 6015913, 3486760, 74540148, 2418114, 5519935 ####[facility] (DEFAULT)[address] [place] [address] Neutrophils/100 WBC (Bld) 53 % Normal 44-88 [facility] Comment on above: Performed By: #### 1 9409397, 6508948, 8039423, 1813257, 37680925, 3561474, 1743952 ####[facility] (DEFAULT)[address] [place] [address] CBC w/ Auto Diffon 3 Erythrocyte distribution width (RBC) [Ratio] 13.0 % Normal 11.5-15.0 [facility] Comment on above: Performed By: #### 1 1750563, 5409891, 6740637, 1108665, 07866656, 5003069, 3907027 ####[facility] (DEFAULT)[address] [place] [address] Hematocrit (Bld) [Volume fraction] 39.5 % Normal 33.7-40.4 [facility] Comment on above: Performed By: #### 1 4145990, 1342916, 8354657, 9122310, 83338891, 1129503, 4733360 ####[facility] (DEFAULT)[address] [place] [address] Hemoglobin (Bld) [Mass/Vol] 13.4 g/dL Normal 11.3-15.9 [facility] Comment on above: Performed By: #### 1 3089219, 0890622, 4139228, 1907696, 16552010, 9489243, 9080049 ####[facility] (DEFAULT)[address] [place] [address] Man Diff? Auto Invalid Interpretation Code [facility] Comment on above: Performed By: #### 1 3177048, 7799419, 4599983, 6704290, 11385521, 3028305, 3445206 ####[facility] (DEFAULT)[address] [place] [address] MCH (RBC) [Entitic mass] 32 pg Normal 24-34 [facility] Comment on above: Performed By: #### 1 9736535, 5051538, 9565958, 6408636, 80244227, 2912323, 5548723 ####[facility] (DEFAULT)[address] [place] [address] MCHC (RBC) [Mass/Vol] 34 g/dL Normal 26-37 [facility] Comment on above: Performed By: #### 1 3762111, 9324269, 4374542, 9044816, 89934642, 5301490, 0098071 ####[facility] (DEFAULT)[address] [place] [address] MCV (RBC) [Entitic vol] 95 fL Normal 81-100 [facility] Comment on above: Performed By: #### 1 3801032, 7015657, 3355984, 4287466, 81721937, 3942866, 2279554 ####[facility] (DEFAULT)[address] [place] [address] Platelet 252 x10 Normal 138-427 [facility] Comment on above: Performed By: #### 1 6468000, 7243646, 4318198, 1693634, 41454347, 0661717, 8713087 ####[facility] (DEFAULT)[address] [place] [address] Platelet mean volume (Bld) [Entitic vol] 7.5 fL Normal 6.3-10.2 [facility] Comment on above: Performed By: #### 1 1133598, 6527058, 7131669, 8316827, 64139783, 3917572, 2319777 ####[facility] (DEFAULT)[address] [place] [address] RBC 4.18 x10 Normal 3.70-5.30 [facility] Comment on above: Performed By: #### 1 5563154, 1569960, 2494386, 3519441, 09331978, 9146061, 8073702 ####[facility] (DEFAULT)[address] [place] [address] WBC 5.6 x10 Normal 3.5-10.5 [facility] Comment on above: Performed By: #### 1 5942557, 5459506, 3212176, 8558454, 77845508, 4914500, 6621819 ####[facility] (DEFAULT)[address] [place] [address] ED Clinical Summaryon 2022 ED Clinical Summary [facility] ? Urgent Care [address] [place] [address] Clinical Summary PERSON INFORMATION Name: CHANTELLE PINTO Age: 68 Years Sex: FEMALE : 1955 MRN: Acct#: Visit Reason: UC - Sinus Pain or Congestion; UC - Sinus Pain or Congestion; SINUS DRAINAGE, CONGESTION Arrival: 01/31/2023 17:31:19 Discharge: 01/31/2023 18:41:00 LOS: 000 01:10 Check In: 01/31/2023 17:31:19 Checkout: 01/31/2023 18:41:00 Address: [address] [place] [address] PCP: Luis Alfredo Grande PROVIDER INFORMATION Provider Role Assigned Unassigned Josiane Haddad COOK FRY Nurse 01/31/2023 17:34:23 Deuce Hernandez ED PA 01/31/2023 17:36:10 VITALS INFORMATION Vital Sign Triage Latest Temperature Tympanic Temperature Temporal Artery Pulse Rate O2 Sat 96 % 96 % Respiratory Rate Blood Pressure /78 mmHg /78 mmHg MEDICAL INFORMATION Medications Given: Allergy Information: LORazepam; Amoxil PHYSICIAN DOCUMENTATION DISCHARGE INFORMATION: Discharge Disposition: Home Discharge Location: Home PATIENT EDUCATION INFORMATION Instructions: Sinusitis, Adult, Fdfh-ya-Jrdc; Otitis Media, Pediatric, Bubv-qo-Yaay Follow-Up: With: Address: When: Luis Alfredo Grande [address] [place] [address], [address] [place] [phone] Business (1) Comments: Azithromycin as an antibiotic to 2 tabs day 1, then 1 tab daily thereafter until gone Nasacort nasal spray has been provided for you use 1 spray each nostril daily Follow-up with primary care provider in 3-5 days sooner if worse. DIAGNOSIS: Right otitis media; Sinus congestion Patient Understands: Yes - Patient/family/caregive r verbalizes understanding of instructions given Comment: Normal [facility] ED Patient Summaryon 023 ED Patient Summary [facility] ? Urgent Care [address] [id number] PATIENT DISCHARGE INSTRUCTIONS Patient Information Name: CHANTELLE PINTO Age: 68 Years Date of : 1955 Reason For Visit: UC - Sinus Pain or Congestion; UC - Sinus Pain or Congestion; SINUS DRAINAGE, CONGESTION Arrival Time: 01/31/2023 17:31:19 Primary Care Physician: Luis Alfredo Grande Attending Physician: Deuce Hernandez Comment: Patient Education With: Address: When: Luis Alfredo Grande [address] [place] [address], [address] [place] [address] Business (1) Comments: Azithromycin as [...] home: Medicines ? Take, use, or apply rsyb-jdd-nvxsejm and prescription medicines only as told by [...] is no soap and water, use hand tin tie machine operator automatic. ? Do not smoke. Avoid being around people who are smoking (secondhand smoke). ? Keep all follow-up visits as told by your doctor. This is important. Contact a doctor if: ? You have a fever. ? Your sym (more content not included)... Normal [facility] Ferritinon 01-31-2023 Ferritin [Mass/Vol] 33.1 ng/mL Normal 12.0-150.0 [facility] Comment on above: Performed By: #### 1 4376361, 0461788, 3274185, 6332223, 67788559, 2628959, 5308009 ####[facility] (DEFAULT)[address] [place] [address] Iron Profileon 01-31-2023 Iron [Mass/Vol] 107.0 ug/dL Normal 28.0-170.0 [facility] Comment on above: Performed By: #### 1 5795376, 2987384, 0720561, 7940861, 88961707, 4131345, 0209475 ####[facility] (DEFAULT)[address] [place] [address] Iron Sat 30 % Normal 20-55 [facility] Comment on above: Performed By: #### 1 1650509, 9960063, 2187189, 5647443, 21674783, 3280918, 8893023 ####[facility] (DEFAULT)[address] [place] [address] TIBC 353 mcg/dL Normal 250-400 [facility] Comment on above: Performed By: #### 1 9721469, 4788235, 2126887, 1784655, 86124484, 5409230, 5384411 ####[facility] (DEFAULT)[address] [place] [address] Transferrin [Mass/Vol] 252.1 mg/dL Normal 192.0-382.0 [facility] Comment on above: Performed By: #### 1 7453084, 3422187, 3044144, 8994429, 54521307, 4621350, 2831537 ####[facility] (DEFAULT)[address] [place] [address] TSHon 01-31-2023 TSH Qn 2.38 m[IU]/L Normal 0.45-5.33 [facility] Comment on above: Performed By: #### 1 3444815, 2923538, 1633514, 4203970, 31337157, 8238413, 9456407 ####[facility] (DEFAULT)[address] [place] [address] UA Lpacu7tf 01-31-2023 UA Bacteria 2+ [facility] Comment on above: Order Comment: Urina lysis Microscopic order added on by [employer] Expert Rules system. Performed By: #### 6 550851, [id number], 99948502 ####[facility] (DEFAULT)[address] [place] [address] UA RBC 3-5 [facility] Comment on above: Order Comment: Urina lysis Microscopic order added on by [employer] Expert Rules system. Performed By: #### 6 516993, [id number], 58602034 ####[facility] (DEFAULT)[address] [place] [address] UA Squam Epi Many Normal [facility] Comment on above: Order Comment: Urina lysis Microscopic order added on by [employer] Rules system. Performed By: #### 6 633372, 5008608730, 50275078 ####[facility] (DEFAULT)[address] [place] [address] UA WBC 5-10 [facility] Comment on above: Order Comment: Urina lysis Microscopic order added on by [employer] Rules system. Performed By: #### 6 202015, [id number], 03273556 ####[facility] (DEFAULT)[address] [place] [address] UA Yeast Rare [facility] Comment on above: Order Comment: Urina lysis Microscopic order added on by [employer] Rules system. Performed By: #### 6 102313, 1388551760, 98871587 ####[facility] (DEFAULT)[address] [place] [address] UA w Culture if Ind Standard on 01-31-2023 Breakpoint UA [facility] Comment on above: Performed By: #### 6 111886, [id number], 58818984 ####[facility] (DEFAULT)[address] [place] [address] Color (U) Yellow [facility] Comment on above: Performed By: #### 6 946952, 6389807045, 18110699 ####[facility] (DEFAULT)[address] [place] [address] Culture? Indicated Invalid Interpretation Code [facility] Comment on above: Result Comment: Resu lt created by rule GL_MAGR_ADD_UA_CULT Result created by rule GL_MAGR_ADD_UA_CULT Result created by rule GL_MAGR_ADD_UA_CULT1 Result created by rule GL_MAGR_ADD_UA_CULT Performed By: #### 6 045480, [id number], 95658452 ####[facility] (DEFAULT)[address] [place] [address] Glucose (U) [Mass/Vol] Negative [facility] Comment on above: Performed By: #### 6 950615, 1655354518, 88563039 ####[facility] (DEFAULT)[address] [place] [address] Ketones Ql (U) Negative [facility] Comment on above: Performed By: #### 6 929818, 4501910669, 33839365 ####[facility] (DEFAULT)[address] [place] [address] Micro? Indicated Invalid Interpretation Code [facility] Comment on above: Result Comment: Resu lt created by rule GL_MAGR_ADD_UA_MICRO Performed By: #### 6 622257, [id number], 04761840 ####[facility] (DEFAULT)[address] [place] [address] UA Bilirubin Negative Normal [facility] Comment on above: Performed By: #### 6 410369, 7588548321, 34875633 ####[facility] (DEFAULT)[address] [place] [address] UA Blood SMALL Abnormal NEGATIVE [facility] Comment on above: Performed By: #### 6 647068, 3086703736, 34847970 ####[facility] (DEFAULT)[address] [place] [address] UA Clarity CLOUDY Abnormal CLEAR [facility] Comment on above: Performed By: #### 6 476556, [id number], 31631063 ####[facility] (DEFAULT)[address] [place] [address] UA Leuk Est TRACE Abnormal NEGATIVE [facility] Comment on above: Performed By: #### 6 999832, 9034732389, 96189690 ####[facility] (DEFAULT)[address] [place] [address] UA Nitrite Negative Normal [facility] Comment on above: Performed By: #### 6 315149, 4028467230, 87375192 ####[facility] (DEFAULT)[address] [place] [address] UA pH 6.0 Normal 5-8 [facility] Comment on above: Performed By: #### 6 242228, [id number], 51818286 ####[facility] (DEFAULT)[address] [place] [address] UA Protein Negative Normal NEGATIVE [facility] Comment on above: Performed By: #### 6 918246, 6069213579, 38888921 ####[facility] (DEFAULT)[address] [place] [address] UA Spec Grav 1.025 Normal 1.001-1.035 [facility] Comment on above: Performed By: #### 6 555513, 7967552384, 02916786 ####[facility] (DEFAULT)[address] [place] [address] UA Urobilinogen 0.2 mg/dL Normal 0.2-1.0 [facility] Comment on above: Performed By: #### 6 416076, 8156456552, 12432737 ####[facility] (DEFAULT)[address] [place] [address] Urine Source Clean Catch Normal [facility] Comment on above: Performed By: #### 6 820817, [id number], 66486964 ####[facility] (DEFAULT)[address] [place] [address] Urgent Care Note- Provideron 01-31-2023 Urgent Care [...] Impression and Plan Diagnosis Right otitis media (ZTM07-HN H66.91, Discharge, Medical) Sinus congestion ([id number] R09.81, Discharge, Medical) Plan Prescriptions: Launch prescriptions Pharmacy: !-Nasacort AQ 55 mcg/inh nasal spray (Prescribe): 1 spray(s), Nasal, Daily, 16.5 gm, 0 Refill(s) azithromycin 250 mg oral tablet (Prescribe): See Instructions, Take 2 tabs day 1, one tab daily thereafter., 6 tab(s), 0 Refill(s). Patient was given the following educational materials: Otitis Media, Pediatric, Kuot-kd-Bzyg, Sinusitis, Adult, Jdos-gn-Gjvj. Follow up with: Luis Alfredo Grande Azithromycin [...] [Verified on: 01/31/2023 18:34 EST] Deuce Hernandez [facility] 023 Urgent Care Record [facility] ? Urgent Care [address] [place] [address] PATIENT DISCHARGE INSTRUCTIONS Patient Information Name: CHANTELLE [...] (R09.81) UC - Sinus Pain or Congestion ([id number]) UC - Sinus Pain or Congestion ([id number]) If you received any narcotics, sedation, or [...] sign any legal documents With: Address: When: [address], [address] [place] [address] Business (1) Comments: Azithromycin as an antibiotic to 2 tabs day 1, then 1 tab daily thereafter until gone Nasacort nasal spray has been provided for you use 1 spray each nostril daily Follow-up with primary care provider in 3-5 days sooner if worse. Medication Information: The exam and treatment you received today in the [facility] were for an urgent problem and are not intended as complete care. It is important for you to follow up with a doctor, nurse practitioner, or physician?s transport assistant for ongoing care. If your symptoms [...] so we can reach you if necessary. [facility] has provided you with a complete list of medications post discharge. Please inform your publicity director/provider of your visit and for further instruction on these medications. Any specific questions regarding your chronic medications and dosages should be discussed with your primary care physician(s) and/or pharmacist. New Medications [facility] [address], [address] [place], [place] [id number], [phone] azithromycin (azithromycin 250 mg oral tablet) Take [...] sinuses. S (more content not included)... Normal [facility] Vit B12 Lvlon 01-31-2023 Vit B12 1205 High 180-914 [facility] Comment on above: Performed By: #### 1 6373300, 6754601, 7721588, 0125235, 76666179, 0985230, 4966342 ####[facility] (DEFAULT)[address] [place] [address] Vit D25 OHon 01-31-2023 Vitamin D 25 OH 54 ng/mL Invalid Interpretation Code [facility] Comment on above: Performed By: #### 1 5193859, 5355780, 8050626, 7537515, 02211696, 5946296, 0428024 ####[facility] (DEFAULT)[address] [place] [address] Diagnostic Mammogram, Unilat eral Left w/Jose (3D)on [...] VERY IMPORTANT TO YOUR HEALTH. THE CURRENT [employer] GUIDELINES RECOMMENDS ANNUAL MAMMOGRAPHY BEGINNING AT AGE 41 THIS FACILITY USES A REMINDER SYSTEM TO ENSURE ALL PATIENTS RECEIVE REMINDER NOTIFICATIONS AT THE APPROPRIATE TIME BASED ON THE RECOMMENDATIONS OF THIS EXAM. Board Certified Radiologist. Accredited by the ACR and FDA. Report reported and signed by Isaiah Tatum on 08/20/2022 1512 Normal [facility] US Breast Limited, Lefton US Breast Limited, Left Refer to concurrent diagnostic mammogram dictation. Report reported and signed by Isaiah Tatum on 08/20/2022 1512 Normal [facility] NM vito perf SPECT rest stron 08-09-2022 NM vito perf SPECT rest [facility] [place] [address] Nuclear Medicine Report Signed Patient: Chantelle Pinto MR#: [id number] : 1955 Acct:[id number] Age/Sex: 67 / F ADM Date: 08/08/22 Loc: NM Room: Type: DEP CLI Attending Dr: Luis Alfredo Grande MD Copies to: MD Luis Alfredo Lomas MD Ordering Provider: Luis Alfredo Grande MD Date of Service: 08/08/22 NM/NM vito perf SPECT rest str: R07.9 REFERRING PHYSICIAN: Luis Alfredo Grande MD REASON [...] 08/09/22 1202 Signed By: 08/09/22 1302 Normal [facility] STR cardiac stress/cardiolon 08-09-2022 STR cardiac stress/cardiol [facility] [address] [place] [address] [id number] Cardiac Stress Test Signed Patient: Chantelle Pinto MR#: [id number] : 1955 Acct:[id number] Age/Sex: 67 / F ADM Date: 08/08/22 [...] MD 08/09/22 1208 Signed By: 08/09/22 1302 [facility] SCREENING MAMMOGRAM W/JOSE, BILATERAL*on 08-07-2022 SCREENING [...] VERY IMPORTANT TO YOUR HEALTH. THE CURRENT [employer] AND [employer] GUIDELINES RECOMMEND ANNUAL MAMMOGRAPHY BEGINNING AT AGE 41. THIS FACILITY UTILIZES A REMINDER SYSTEM TO ENSURE ALL PATIENTS RECEIVE A REMINDER NOTIFICATION AT THE APPROPRIATE TIME BASED ON THE RECOMMENDATIONS OF THIS EXAM. BOARD CERTIFIED RADIOLOGIST. ACCREDITED BY THE [facility] AND FDA. Report reported and signed by Kika Cooney on 08/07/2022 1356 Normal [place] [facility] Comprehensive Metabolic Pane wyatt 03-06-2022 Albumin [Mass/Vol] 4.4 g/dL Normal 3.6-5.1 [facility] Comment on above: Performed By: #### C DIAZ JAMES #### [facility] [address], [place] [id number] Albumin/Globulin [Mass ratio] 1.7 {ratio} Normal 1.0-2.5 [facility] Comment on above: Performed By: #### C DIAZ JAMES #### [facility] [address], [place] [id number] ALP [Catalytic activity/Vol] 125 U/L High 35-119 [facility] Specialist Comment on above: Performed By: #### C DIAZ JAMES #### [facility] [address], [place] [id number] ALT [Catalytic activity/Vol] 27 U/L Normal 6-33 [facility] Specialist Comment on above: Result Comment: 11/01 Female reference range changed. Performed By: #### C DIAZ JAMES #### [facility] [address], [place] [id number] Anion gap [Moles/Vol] 19 mmol/L Normal 12-20 [facility] Comment on above: Result Comment: Effe ctive 12/07/2019 reference range changed. Performed By: #### C DAIZ JAMES #### [facility] [address], [place] [id number] AST [Catalytic activity/Vol] 27 U/L Normal 9-34 [facility] Comment on above: Performed By: #### C DIAZ JAMES #### [facility] [address], [place] [id number] Bilirubin [Mass/Vol] 0.37 mg/dL Normal 0.30-1.20 [facility] Comment on above: Performed By: #### C DIAZ JAMES #### [facility] [address], [place] [id number] BUN/CREA 28 Ratio High 6-22 [facility] Specialist Comment on above: Performed By: #### C DIAZ JAMES #### [facility] [address], [place] [id number] Calcium [Mass/Vol] 9.4 mg/dL Normal 8.6-10.2 [facility] Specialist Comment on above: Performed By: #### C ERIKA LIPMyah #### [facility] [address], [place] [id number] Chloride [Moles/Vol] 102 mmol/L Normal 98-107 [facility] Specialist Comment on above: Performed By: #### C ERIKA, LIPD #### [facility] [address], [place] [id number] CO2 [Moles/Vol] 22 mmol/L Normal 20-31 [facility] Specialist Comment on above: Performed By: #### C ERIKA, LIPD #### [facility] [address], [place] [id number] Creatinine [Mass/Vol] 0.5 mg/dL Low 0.6-1.4 [facility] Specialist Comment on above: Performed By: #### C ERIKA, LIPD #### [facility] [address], [place] [id number] eGFRAA 140 mL/min/1.73m2 Normal >60 [facility] Specialist Comment on above: Performed By: #### C ERIKA, LIPD #### [facility] [address], [place] [id number] eGFRNAA 115 mL/min/1.73m2 Normal >60 [facility] Specialist Comment on above: Performed By: #### C ERIKA, LIPD #### [facility] [address], [place] [id number] Globulin (S) [Mass/Vol] 2.6 g/dL Normal 1.9-3.7 [facility] Specialist Comment on above: Performed By: #### C ERIKA, LIPD #### [facility] [address], [place] [id number] Glucose [Mass/Vol] 170 mg/dL High 65-99 [facility] Comment on above: Result Comment: For FASTING Glucose --- ADA reference ranges: Normal 65-99 mg/dl Prediabetes 100-125 Diabetes >/= 126 Performed By: #### C ERIKA, LIPD #### [facility] [address], [place] [id number] Potassium [Moles/Vol] 4.7 mmol/L Normal 3.5-5.5 [facility] Comment on above: Performed By: #### C ERIKA LIPD #### [facility] [address], [place] [id number] Protein [Mass/Vol] 7.0 g/dL Normal 6.1-8.1 [facility] Comment on above: Performed By: #### C ERIKA LIPD #### [facility] [address], [place] [id number] Sodium [Moles/Vol] 138 mmol/L Normal 135-146 [facility] Comment on above: Performed By: #### C ERIKA LIPD #### [facility] [address], [place] [id number] Urea nitrogen [Mass/Vol] 15 mg/dL Normal 7-25 [facility] Comment on above: Performed By: #### C ERIKA LIPD #### [facility] [address], [place] [id number] Hemoglobin A1Con 03-06-2022 EAG 177.16 Normal [facility] Specialist Comment on above: Performed By: #### A 1C #### [facility] [address], [place] [id number] HbA1c (Bld) [Mass fraction] 7.8 % High 4.0-6.0 [facility] Comment on above: Performed By: #### A 1C #### [facility] [address], [place] [id number] Lipid Panelon 03-06-2022 Cholesterol [Mass/Vol] 271 mg/dL High 125-200 [facility] Comment on above: Result Comment: Low risk < 200mg/dL Borderline risk 201-239 mg/dl High risk > or equal to 240 Performed By: #### C ERIKA LIPD #### [facility] [address], [place] [id number] Cholesterol in HDL [Mass/Vol] 44 mg/dL Normal >40 [facility] Comment on above: Result Comment: High Cardiovascular Risk HDL <40 mg/dL Low Cardiovascular Risk HDL > or equal to 60 mg/dl Performed By: #### C ERIKA LIPD #### [facility] [address], [place] [id number] Cholesterol in LDL [Mass/Vol] 184 mg/dL Normal [facility] Specialist Comment on above: Result Comment: LDL ATP III CLASSIFICATION LDL less than 100 mg/dl Optimal LDL 100-129 mg/dl Near or above optimal LDL 130-159 Borderline high LDL 160-189 High LDL greater than 189 mg/dl Very High Performed By: #### C MP, LIPD #### [facility] [address], [place] [id number] Cholesterol in VLDL [Mass/Vol] 43 mg/dL Normal [facility] Specialist Comment on above: Performed By: #### C MP, LIPD #### [facility] [address], [place] [id number] Cholesterol.total /Cholesterol in HDL [Mass ratio] 6 {ratio} Normal [facility] Specialist Comment on above: Performed By: #### C MP, LIPD #### [facility] [address], [place] [id number] Triglyceride [Mass/Vol] 215 mg/dL High 30-150 [facility] Comment on above: Result Comment: TRIG ATPIII CLASSIFICATIONS TRIG less than 150 mg/dl Normal TRIG 150-199 mg/dl Borderline High TRIG 200-500 mg/dl High TRIG greather than 500 mg/dl Very High Performed By: #### C MP, LIPD #### [facility] [address], [place] [id number] Q - ALK PHOSPHATASE ISOENZYM ESon 03-06-2022 ALP [Catalytic activity/Vol] 117 U/L Normal 37-153 [facility] Specialist Comment on above: Order Comment: [facility] Testing performed at: [place], [employer]/[facility], [address], [place], [place], , Mechanical Operator: Jeffry Rosas M.D.,PhD [facility] Collection Date/Time: [facility] Results Received Date/Time: [facility] Reported Date/Time: Performed By: #### 2 31 #### [facility] [address] [place] [address] BONE ISOENZYMES 29 % Normal 28-66 [place] [facility] Comment on above: Order Comment: [facility] Testing performed at: [facility], [employer]/[facility], [address], [place], [place], , Mechanical Operator: Jeffry Rosas M.D.,PhD [facility] Collection Date/Time: [facility] Results Received Date/Time: [facility] Reported Date/Time: Performed By: #### 2 31 #### [facility] Default [address] [place] [address] INTESTINAL ISOENZYMES 0 % Low 1-24 [facility] Specialist Comment on above: Order Comment: [facility] Testing performed at: [facility], [employer]/[facility], [address], [place], [place], , Mechanical Operator: Jeffry Rosas M.D.,PhD [facility] Collection Date/Time: [facility] Results Received Date/Time: [facility] Reported Date/Time: Performed By: #### 2 31 #### [facility] Default [address] [place] [address] LIVER ISOENZYMES 71 % High 25-69 [facility] Specialist Comment on above: Order Comment: [facility] Testing performed at: [facility], [employer]/[facility], [address], [place], [place], , Mechanical Operator: Jeffry Rosas M.D.,PhD [facility] Date/Time: [facility] Results Received Date/Time: [facility] Reported Date/Time: Performed By: #### 2 31 #### [facility] Default [address] [place] [address] MACROHEPATIC ISOENZYMES 0 % Normal <=0 [facility] Specialist Comment on above: Order Comment: [facility] Testing performed at: [facility], [employer]/[facility], [address] [place], [place], , Mechanical Operator: Jeffry Rosas M.D.,PhD [facility] Date/Time: [facility] Results Received Date/Time: [facility] Reported Date/Time: Performed By: #### 2 31 #### [facility] Default [address] [place] [address] PLACENTAL ISOENZYMES 0 % Normal <=0 [facility] Welt Maker Comment on above: Order Comment: [facility] Testing performed at: [facility], [employer]/[facility], [address] [facility] , [place], [place], , Mechanical Operator: Jeffry Rosas M.D.,PhD [facility] Date/Time: [facility] Results Received Date/Time: [facility] Reported Date/Time: Performed By: #### 2 31 #### [facility] Default [address] [place] [address] Vitamin B12on 03-06-2022 Cobalamin (Vitamin B12) [Mass/Vol] 947 pg/mL High 211-946 [facility] Welt Maker Comment on above: Performed By: #### B 12 #### [facility] [address] [place], [place] [id number] Encounters Encounter Date Encounter Type Care Provider Facility Start: 03-23-2024 End: 03-23-2024 ambulatory PRABHJOT RAMAN Not Available Start: 07-09-2023 End: 07-09-2023 ambulatory VIOLET MCNEILL Facility:[facility] Start: 06-06-2023 End: 06-07-2023 ambulatory JESSE CONRAD [facility] Start: 06-06-2023 End: 06-06-2023 Patient encounter procedure JESSE CONRAD [facility] Start: 01-31-2023 End: 01-31-2023 ambulatory Luis Alfredo Harjinder Facility:[facility] Start: 01-31-2023 End: 02-01-2023 ambulatory [facility] Facility:[facility] Start: 08-08-2022 ambulatory Alvaro Dickinson y:[id number] Start: 08-08-2022 End: 08-08-2022 ambulatory W Reese Benson Facility:[facility] Start: 08-08-2022 End: 08-08-2022 Patient encounter procedure MD Luis Alfredo Grande Work Phone: [facility] Start: 03-04-2019 End: 07-18-2019 Patient encounter procedure POLY SANTIZO Facility:[facility] Plan of Treatment Date Care Activity Detail Author Start: 08-08-2022 Radionuclide myocard ial perfusion stress study NM vito perf SPECT rest & str [facility] Start: 08-08-2022 SPECT Heart perfusio n at rest and W stress and W radionuclide IV [facility] Work Phone: Payers Date Payer Category Payer Medicare [id number] 1958 Self-pay 1955 Unknown [id number] 2.16.84 [id number] 1955 Unknown [id number] 1955 Unknown [id number] 2.16.8 [id number] 1955 Unknown [id number] 2.16.8 [id number] 1955 Unknown [id number] 2.16.8 [id number] 1955 Unknown [id number] 2.16.8 [id number] 1955 Unknown [id number] 2.16.84 [id number] Unknown Eric BC/BS XI [id number] Unknown [place] XI [id number] Unknown Regular Auto/Medical [id number] Unknown [id number] 2.16.8 [id number] Social History Date Type Detail Facility [facility]: [facility]10-[facility] Start: 1955 Sex Assigned At Female F [facility] Tobacco smoking status No Smokin g Status Entered [facility] Sex Assigned At Female [facility] Clinical Note 07-09-2023 Note Date & Type [...] wine (148 mL (more content not included)... [facility] Clinical Note 01-31-2023 Note Date & Type [...] home: Medicines ? 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 ? Do not smoke. Avoid being around [...] to replace a (more content not included)... [facility] Evaluation + Plan note Note Date & Type Note Facility Evaluation + Plan note No data available for this section [facility] Evaluation note Note Date & Type Note Facility Evaluation note No assessment information availa [facility] Work Phone: Hospital Discharge instructions Note Date & Type Note Facility Hospital Discharge instructions No data available for this section [facility] Progress note Note Date & Type Note Facility Progress note No data available for this section [facility] Summary Purpose Family History No Family History [...] and content) DATE CREATED AUTHOR 07/18/2019 [facility] DATE CREATED AUTHOR AUTHOR'S ORGANIZ ATION 09/02/2022 [facility] dical Specialist DATE CREATED AUTHOR AUTHOR'S ORGANIZ ATION 01/05/[address] [facility] DATE CREATED AUTHOR AUTHOR'S ORGANIZ ATION 03/30/2023 [facility] DATE CREATED AUTHOR AUTHOR'S ORGANIZ ATION 06/07/2023 [facility] DATE CREATED AUTHOR AUTHOR'S ORGANIZ ATION 07/20/2023 [facility] DATE CREATED AUTHOR AUTHOR'S ORGANIZ ATION 03/23/2024 [facility] dical Specialists EPIC Care Teams (unrecognized [...] BE BASED ON THE PRIMARY CLINICAL RECORDS. [employer] [facility]. provides no warranty or guarantee of the accuracy or completeness of information in this document.
[2024-09-08 09:09] VITALS: BP 116/56; PULSE 85; O2SAT 96
== END 2024-09-08 09:32 | disposition home or self-care (01) ==
LOC: VC 09:04
PROVIDERS: PCP Radiology Diagnostic Radiology; Visit Provider Radiology Diagnostic Radiology
DX: I83.813 Varicose veins of bilateral lower extremities with pain (principal)
CPT/HCPCS: 36478

== ENCOUNTER 2024-09-18 10:25 | Outpatient (OUT) | payer MEDICARE, SELFPAY ==
[2024-09-18 10:03] VITALS: BMI 28.0
--- NOTE | 2024-09-18 10:03 | VEINCLINIC_ITS ---
Vital Signs 09/18/24 10:03 Height 4 ft 8 in Weight 56.7 kg BMI 28.0 Varicose Veins Patient in today for follow up ultrasound of left lower extremity following EVLT of left GSV completed on 09/08/24. Edson Page MD personally performed the services described in this documentation, as scribed by Eduarda Montelongo RDMS in my presence and it is both accurate and complete. Eduarda Page RDMS am scribing for, and in the presence of, Dr. Edson Conner and in the presence of the patient. knee: bilateral (Patient symptomatic varicose vein bilateral), calf: bilateral, ankle: bilateral and napoles: bilateral aching, cramping, dull and tender 8 40 years Worsened in recent months: Yes standing elevating extremities, compression stockings and exercise Reports muscle spasms of leg, heaviness and edema History of lower extremity trauma: No Superficial thrombophlebitis: No Family history of varicose veins: yes Has patient had previous lower extremity venous surgery: No Patient has previously received the following treatment(s) for lower extremity varicose veins: Reports none Does patient have a history of : yes Does patient intend to have future pregnancies: no Has patient had lower extremity venous scan with relux testing: No Support hose used: Yes Problems walking or doing physical activity: Yes How does it affect you: often has to rest and elevate legs secondary to pain Do you walk much: Yes Do you stand much: Yes Review of Systems ROS Narrative Edson Page MD personally performed the services described in this documentation, as scribed by Eduarda Montelongo RDMS in my presence and it is both accurate and complete. Eduarda Page RDMS, am scribing for, and in the presence of, Dr. Edson Conner and in the presence of the patient. Status of ROS 10 or more systems reviewed and unremark able except as noted in history and below Cardiovascular Reports: edema Integumentary/Breast Reports: itching, redness and changes in skin color Hematologic/Lymphatic Reports: easy bruising and easy bleeding [facility] Medical History (Updated 09/18/24 @ 10:04 by Eduarda Montelongo) Phlebitis and thrombophlebitis of superficial vessels of left lower extremity ?I80.02 - Phlebitis and thrombophlebitis of superficial vessels of left lower extremity (ICD-10) Phlebitis of superficial vein of right lower extremity ?I80.01 - Phlebitis and thrombophlebitis of superficial vessels of right lower extremity (ICD-10) Thrombophlebitis of right saphenous vein ?I80.01 - Phlebitis and thrombophlebitis of superficial vessels of right lower extremity (ICD-10) Meniscal injury ?S83.8X9A - Sprain of other specified parts of unspecified knee, initial encounter (ICD-10) Migraine ?G43.909 - Migraine, unspecified, not intractable, without status migrainosus (ICD-10) Diabetes 1.5, managed as type 2 ?E13.9 - Other specified diabetes mellitus without complications (ICD-10) Pain due to varicose veins of both lower extremities ?I83.813 - Varicose veins of bilateral lower extremities with pain (ICD-10) Surgical History (Updated 09/08/24 @ 09:35 by Ozzy Tomlin) Status post laser ablation of incompetent vein ?Z98.890 - Other specified postprocedural states (ICD-10) Status post laser ablation of incompetent vein ?Z98.890 - Other specified postprocedural states (ICD-10) History of tonsillectomy and adenoidectomy ?Z90.89 - Acquired absence of other organs (ICD-10) Family History (Updated 06/24/24 @ 08:14 by Ozzy Tomlin) Sister Family history of cancer Mother Family history of diabetes mellitus Varicose veins of bilateral lower extremities with pain Social History (Updated 06/24/24 @ 08:15 by Ozzy Tomlin) Within the past year, how often did you have a drink containing alcohol: monthly or less Smoking status: Never smoker Non-prescribed substance use: denies use Meds Home Medications and Allergies Allergies Allergy/AdvReac Type Severity Reaction Status Date / Time ibuprofen Allergy Unknown Unknown Verified 06/19/24 15:59 Exam Narrative Exam Narrative: IEdson MD personally performed the services described in this documentation, as scribed by Eduarda Montelongo RDMS in my presence and it is both accurate and complete. I, Eduarda Montelongo RDMS, am scribing for, and in the presence of, Dr. Edson Conner and in the presence of the patient. Constitutional Documenting provider has reviewed patient's vital signs: yes Common normals: oriented x3 Cardio Peripheral pulses: dorsalis pedis pulses present Extremity Common normals: normal capillary refill General: edema Right lower extremity: lower leg Right lower leg: inspection and palpation Left lower extremity: lower leg Left lower leg: inspection and palpation Other: Tenderness to right calf Neuro Common normals: oriented x3 Results Imaging Venous US: Radiologist's impression: Heat induced thrombus in left GSV 1.6 cm from SFJ and extends to proximal lower leg. IEdson MD personally performed the services described in this documentation, as scribed by Eduarda Montelongo RDMS in my presence and it is both accurate and complete. I, Eduarda Montelongo RDMS, am scribing for, and in the presence of, Dr. Edson Conner and in the presence of the patient. Assessment and Plan Assessment and Plan (1) Phlebitis and thrombophlebitis of superficial vessels of left lower extremity: Plan Plan is to get prior authorization starting in December of 2024. EVLT of right AASV. Edson Page MD personally performed the services described in this documentation, as scribed by Eduarda Montelongo RDMS in my presence and it is both accurate and complete. Kaylee, Eduarda Montelongo RDMS, am scribing for, and in the presence of, Dr. Edson Conner and in the presence of the patient.
--- NOTE | 2024-09-18 10:26 | VEIN_ITS ---
Patient Name: EMMIE PINTO MR#: [id number] : 1955 Exam Date: 09/18/2024 Ordering Doctor: DR JESSE DICKERSON M.D. RADIOLOGY REPORT PROCEDURE: [facility] - OFFICE VISIT FOLLOW UP [facility] PROGRESS NOTES: The patient reports no significant problems following intravenous laser ablation of the left great saphenous vein. The patient has worn compression stockings. The patient has continued to exercise. The patient did not require oral analgesics. Physical exam demonstrates a small area of bruising in the distal thigh likely related to tumescence injection. The incision is healed. No erythema or warmth to suggest cellulitis or thrombophlebitis. No active ulceration. Review of the ultrasound performed the same day demonstrates occlusive thrombus extending throughout the treated left great saphenous vein with heat induced thrombus 1.6 cm from the saphenofemoral junction. No deep vein thrombus. The patient expressed a desire to proceed with treatment of right anterior accessory saphenous vein. The patient would like to take a break over the holidays. [facility] IM[facility]: 1. Successful ablation of the left great saphenous vein 2. 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 PLAN: Intravenous laser ablation right anterior accessory saphenous vein Nurse notes, history and physical were reviewed and confirmed, see attached forms. The nurse was present throughout the physical exam and consultation Dictated by: Edson Conner MD on 09/18/2024 at 12:35 Approved by: Edson Conner MD on 09/18/2024 at 12:37
--- NOTE | 2024-09-18 10:26 | VEIN_ITS ---
Patient Name: EMMIE PINTO MR#: [id number] : 1955 Exam Date: 09/18/2024 Ordering Doctor: DR JESSE DICKERSON M.D. RADIOLOGY REPORT PROCEDURE: VC EXT VENOUS LT LIMITED COMPARISON: None. INDICATIONS: I80.02 - Phlebitis and thrombophlebitis of superficial veins left leg TECHNIQUE: Lower extremity ga scale and Duplex Doppler evaluation of the deep venous system from the inguinal ligament through the calf veins. FINDINGS: REGION: Left lower extremity. THROMBI: Negative for DVT. Heat induced thrombus in left GSV 1.6 cm from SFJ and extends to proximal lower leg. COMPRESSIBILITY: Non-compressible segments corresponding to thrombus FLOW: Areas of no flow corresponding to thrombus CONCLUSION: Post ablation occlusion of the left great saphenous vein with heat induced thrombus 1.6 cm from the saphenofemoral junction Dictated by: Edson Conner MD on 09/18/2024 at 12:34 Approved by: Edson Conner MD on 09/18/2024 at 12:35
--- OUTSIDE RECORDS SUMMARY | 2024-09-18 10:28 | XMS_ITS | CCD ---
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 1hbGlnbjogbGVmdDsgdmVyd GljYWwt JTaxR666WEIggDgdCgEGBRU MRTwvdGQ+DEXfSJM4qSuxXE ldFSUjkD0wNXCgE3k3CrPnI lD3HDon G5UlPZNkvkbrWq79sH5qApE mEeY6ZAqrQ1NbkdX8GHVehB OqHJpaWKE7E10rs1Z5CPBkR DAwMDA7 tEU7oX0bmTsuxiwibPQjlIl nqaEsyUuvTBcoNZysH076JW UesBylUw2OBR15RG92U5RfY jwvdGFi bGU+PHRhYmxlIHdpZHRoPSc hHMOgMeBnqKvoXC7dCj6jJL HhDPSkpHwxwCMlOdCds5wdG XBzZTsg PQ6gcHhfH9DuiNU4VYVil0m 3Kg06J73kN2PlhYR+PGNvbC P7mEJ8yO0tJhZdBiF5EAacU 249InRv vONaAmpem1wkk6jrnFb3MzL iLSYplzVdmJubPEA9d7KpDl 33O77xVPnuTFTkRBJiIVZvZ HZhbGln xx3ofA9fFi3+QEKlwLO2lKZ 2wU5vEmUxIyZ5HMogH778Lx ResYIiHhscE63xO2MsdWS+P HRyPjx0 ZRAxzQzwWD6bhAKyYNriQg5 zSMM1ZfWeWwJxGAifJ7HjLA WtpcvdxsngwUO1ENNtSWFpz S89Ad9i lMswFl0lBMNaYSV8PIYfyOY eZ0FmjJ6eGkIoFSEwDMYuS5 IbeUIlWDrpD485IThbFjE8J HZlcnRp K7OjZVGcfMkwBbE3a0B6Ro3 ZoPpbfOVcHL9nLxCdNOm8C5 XkAkr8JGWcgMgsZG7jaTLsF XlnWl3h sQsgbVkoXJ9gKSGiiofgm11 0ZdApy3gkGBNuiWVuTIqkVN W0V28wi6R0CIUdOIEdIEV3c HD3sX3w bGlnbjogbGVmdDsgdmVydGl vQMzeDBdfG686AFYolNwfZy MJPuz0A2ZjQzs3SWJsvYwxP C8imGKx KFncAw8dcVhyzEwcBO0oVQU fkfqfm867GlFtw7omUKOngU SrQQoqHEJ9M75ti2V1XCUxV DAwMDA7 bPR3cG4fhRfsmnuxvWNyzEv ishRdpDpmNEonTCwaB328JP LcvAqeLf1ZHin7R7FmGln0N CBzdHls NN6wnVUqUXdiIl2otLtaaUw xTX5sVVAutdvff706UcFhu4 ccFSSrnHHwVTuuNMP1L24xy 6S4MUEr FJNgIXU1nAR3jK4loUfbqyf gbGVmdDsgdmVydGljYWwtYW swO063WBNqpYvxWwNabGAjO jwvdGQ+ ZN97tn17W0AwLyknSfz7RNW tQHZ8jQF7cF4pZAXlXSfct5 I3dKH6Q2KqnrLvhp9jy2qaM XBzZTog Y29 (more content not included)... [facility] Coding Summaryon 02-04-2023 Coding Summary HTMLBase 64 VmiznzfjZRg1qRy+PGhlYWQ +DX7VVMLeN52tpUXerC4AZ5 mYHB1FODJVKPLXUS6NIE9lz WT4YJdeM5TpagVw EfqxiLFzKO74ZXh9VQR1mEf bTStyuH4muLPuU8l3HhNfBE 43qR31SQoeXFJkTvR2ByXoe jsgbWFy Y5djXrGlzSEmDlm+PHRhYmx lIHdpZHRoPScxMDAlJyBzdH riYT3iNc3pTWPnDCBmxUpom HNlOiBj e3amABVoVRnfEZ8yqRtlO2O obDZ4REOwg4l0Nl62bAB+PH OaNGA5fTgxYKwas310GiGeg 5mlYXZ5 mAZrGGbbSBF3J59ov3H8CQH zBXFqEPB7kJL1iL4nuZtjgc jkW4CetJFzIhU8YOL9xCZhd I2fzKcr sovgvK5pGmw+C87DYJ0MOVI DQA6JNnu3R7PgQzzsvLX+PC 01NSWxPG22vOUufGUcm3tav Wd2UtFq VIPnJOT8vKwuSTorr3CoKOF zU73wuGKqa7M0UGHrsHvnfC KsSsKrmSV1hU2lPRgzeyodh 2hvdzsn Rfghb5uuce77fQ86O58cYYw kEVQqEOY7RVEqMRYbfFhjdo 1dyG8rCe6+ZJhvn7egv6erb Ay4JiKj FWXtjlCjoHtzCOP8j5HtFu3 3W4RaaPafn1KlKcu7wv18eR Wzy8L3kBU0EUlrADKycW1nO WxlZnQ6 MWIwHwDezQ52bWPjJZyuQr0 yzEnlnAicCS0uQDWgbbekIC JbpI0iRIJgwIAatUuiOG8xS TBpbjtm d867RjWiRAU8QDDveRDwM0E vlF0lViEdUXGpIXXzE1QdsK GaCNkfL351EZuiCaA0IUSph zUfL8Ag VSPdjVraCqR7y4C8St2Fw8K lazuvTBI3ZOitHNBmNkI7Ho JuZrU9M7NjMtl0BBHacDanJ G9mU0Tu WJGmndsdswxynZF7ZYNbYKS ynO60fBOrEXhoRe6ks1Y1e9 88ZTKhMPNjpR59Px3ppVomD TBwdCBU qE3ensxnq7vrjvhsYdYuKHY oGCo9IWd4TGDfeQbnRjScHS O0AfA5YMR2xRDhhA4fiDmih pxhaX2k Oyc+K21jlA0uBRV1WUQ7yxu aDWYluqZzIW54DL67L2WvQs wvdGFibGU+PGRpdiBzdHlsZ Z0uClNh x7anv3NmDUinG4HgMCDiVCg mWsb1KERjDCH1uOH6bX2mZX DtJSphl6H5nEN6D7BgilFyb e5ok5du QATaOKrqM10txOKma7F3UTZ bkIG0XYZwkBbrXjKowD75Yi c+OTHwxNusk0CrPaoqd9ufu 8yxgLj8 OkSiIPOmiuJmeOkzFIM6w9W uSj85F77yDTunYGIcAKRjBP ApHLJykUuvel1flB5bNv1+P GNvbCB3 sQX4hB5fHPDiIzG7UWkjJ41 1IcGadHKcVwxhe2vgd6mgiD m5JiNjXAUpsnQdjIkeWNB4b 7RmUo34 U45lNKuxWJQbIKDhKCFbYKW yhTqydk5poM4rYt9+PC9jb2 dzbg21wZ76jGR+WVNdDCG0c WxlPSdw NBJwpH1fUDxpQoA3QEOsOaX cbK56yOUxJRtfUo9zpMertS lsLR4cKQJuhcjhn142FhSqi 2xkIDEw rKAvIPjrYPA2Z96bw7U1WMW yVQHqOPO3pQG5fX5xgBtijz ogbGVmdDsgdmVydGljYWwtY QaeW584 IHRvcDsnPlBhdGllbnQgTmF uDFm1E4JmJdq0SAQzbHnwKX 3otDZyZRzuMv8dbUgmdUpiJ A6kGACd xjlia421LsIcd6lcONAlbKF tCNvcWXF7C35ve3R5ECDpHC GnEPT7jIU6jG9rtIapnbhyu GVmdDsg tkQqjPptRAgjZLeqK847RSG ynNyrPhFmraNoJLKogQJ8UY 96WB14uGSlu9P0kWL8G5AaX GRpbmct pjdytVQ0DFIbOUOpoW67Ql4 wvOgwLu0hRFEyWTH0BRDkoR IgW4NqxM3aVhHcYLMaCDKvC 3RleHQt YQmsM445DUqnRnT1NAMwufS tD7MpYYSpxQqiFcU7h8Y9In 4MZ6D9OA00AG64wNIun5H2t WW0V8Gp PHKwcmjzmjsidWN6MKFnXOG ckA94Nu2glBaxOs3lMARzJT Q3XLJbxQRmN7VnrR3hVpDiQ DAwMDAw L9RmzGRvVQzaA642KTndCeF 3WZHcqfGrV5VtUYJfuCwrFr E1l1W7Np7RQFn3YT70KR25q YGre0Z2 sVJ0K1SgTFTcuhtadkaaeLN 7HHPcHSPxfX15Ha2vzBywBe 2cIYUnZLD1URSgtBLgV4Hsb M2sHrVf EUTdWELmY8VikZMaMHzrX58 9JGfrUsH6JYIsneOhA3CeWP YmuOpmHwP4e5B3Dg6VIETeH W32UTE3 zXD6RG48SQ09T2BkPtbzvCW ibGU+PHRhYmxlIHdpZHRoPS paDUImBoKrbYxbWP2wHh0vQ GVyLWNv nPkmlEYaPjJav8onRRJfDAt hYI2nkRpaV1SuiGT6OWGit2 e6Gg01N80rD8XfyGM+PGNvb ZR7jLX1 gF8sZdIqSjP7KTssG010JgY fgBQzOfdir2ihr0nfjKu1Xv B3FBVpxrPjrCsoNWK1p3JlK z40A00v IHdpZHRoPSIxNSUiIHZhbGl cba6iuU7hCv6+BWUfnGO5kY Y2xA7tBjXiKzQ2HEnmH291C nRvcCIv Gexis9ixe7oruNv7LiMoPFM qhhZbdGoaHYL0g5OyWl02L2 YgpJdih5JlMji6sp30aCUlq 6P1iUO8 Q1XpWRMacvhvkJOerXleUT2 bLFMlrdevMGNqlU4cDCHdJ6 x7UkPwItR0MZguO2CbmwI4I DEwcHQg DAxsRBG6D70xm2Y5AMMeEYR tWVF3rGQ0hL6piLdffvzcjG VmdDsgdmVydGljYWwtYWxpZ 246IHRv uXfsZAEyvU5dYCIviXWwbCc hGT5nYQYlhdkgTyoKR9SSFz JLDXFAPETLN8SgXLsocYC+P HRkIHN0 kCxpGQubXCFiqG5rRHSuZ5x 5BaIlNeJ2ECjmV5MjCADpjg wuZs60xS9sWeNyCgI3JHbsD 0TxouY0 KFWwuRQyEPkgETP0S66pr5Q 0CEWxIMIgJHO7vLQ3aQ7ajT lnbjogbGVmdDsgdmVydGljY WwtYWxp G470TLGmfSmvXpKoYrG7OkK 5ADA8O1SzNmo8JVBnbKodUS 1mdRVkXLjeXf6apEjfpMerK J0gLARu pyveKSOvyR6uEZPyoBHbwHd hFW4dNZIxntprq457YzIvUC N8MWOnkMUlK0CdoT2tRlGwT DAwMDAw Z0TbiEYvJMjtE571GNejDaD 2HUJnilCmY5TiTRWyiFjwHx X7a1J7Ct15KtLTVQSkeyyuc GQ+PHRk VIV9aFedHJeaMJZsfJ1lCNL wS4s3IeGaLjK3NJpbX2QgEF KultccWy04kN9sKkGpBwV1L EptZ2Kc vuP4AQLydYCgLXyxVGD5A72 nw8C5RJIwYLQzAOP5pYN7lM 1hbGlnbjogbGVmdDsgdmVyd GljYWwt LBcpY520RBOrkNgjNhXOMLT MRTwvdGQ+WVUrXNN6xEgfED odPWHrtJ9jTMZnV2j3OkRzD dW8SCop E6NkADPltlfpXr33fF4eAaP hCqW8IRunY3YaahN8CGPqbX OaDRxnJHQ0B00ya4F8IVUfH DAwMDA7 tPN7gD3viHbdjtdtcCLcvXs xtaEsxPdgRCciYVirX866UV MyvXqvMg8LGF61QB14E8KaI jwvdGFi bGU+PHRhYmxlIHdpZHRoPSc lAPBwDlYamHwdDK8hEl7gVU KyNOXyvEktyYMaGcFcf3rtU XBzZTsg OL1cmLkaL4JpqZZ2BYCae0k 8Px78E65wK8HvlIH+PGNvbC K5vOV5kX0iPrPzZaK9TYinK 249InRv cGQnSmpwn1zpt4nwuEd9YjC cVIWzllEkzKwwRIV8y7SoCu 67D93tBYynDOIlJXSjHQHkY HZhbGln go9pyP0gDm0+UMLtqQN1gUA 1cV4aPhJvLyW9KOumK394Pc OvxHGkDbumG33oS0AmvXP+P HRyPjx0 RGSzeSrzXV5elGLoRJviQs3 oYNS8XvMiFeGmCFkoM1VeAX AprryvjdjekEV5JVJeJUQuw Y29Rc8f jYcgGi9pKSUpSSN7SKXgxUS uF3NvfJ4fZvLwGEWqMRUbU8 RjgBDgIMljI258GTtbEsU7Z HZlcnRp Q7ZyNMMgvQxyMxX1f4W5Ip1 VvAperKHhBK3aNlHsANp2L5 BnHai9YIDyzQbiNJ3zsJInS DquTj1o gMeudYqqRE7vSQWwgwzhf05 5HaAlz8qkVYQofHHmKQdcUY A1C26il3X8WNFxDLItFUG5h CN2oT9v bGlnbjogbGVmdDsgdmVydGl cMIqnJVweE131YYHouHywOe OSZzm2K2CwKmk7LPDxnFjzK E3epYKm KNzxXk9glKysuPiuGA3mBMX aignpy528HvPgm0rnDZCckS TkBTydOXX6L93xv5A3QWJjM DAwMDA7 hZS8lM2cfXdztuvmxDUcqNo obcRdaYndACbrVDbeR662SQ EqhVvwLl0EAei0G2MfRea9P CBzdHls MM6wpDWcJTdkVu6ngFqktFn qZQ5lHCEykfrwg805SvBhr6 dmRWPpqUGyZDdgGJN4I79fv 6X1EMYw QNZvKZV5bYY0iM1plPkpmqv gbGVmdDsgdmVydGljYWwtYW giI778EQAxdVlrUcEowZAaJ jwvdGQ+ YM15dv88D9RzEauaHld3EWF uWLJ8zTI6cY6cXAUnEXiei0 S1cES7Y8IvzqZefv4bg5yhL XBzZTog Y29 (more content not included)... Normal [facility] C Urineon 02-02-2023 C Urine Urine Culture ordere d as a result of parameters set on specific urine dip and urine microsopic results. >3 Organisms Consistent with Contamination Recollection suggested. [facility] Comment on above: Performed By: #### 6 [id number], [id number], [id number] ####[facility] (DEFAULT)[address] [place] [address] Provider Orderson 02-01-2023 Provider Orders [id number] TGTIFF Normal [facility] .Auto Diff 101-31-2023 Auto [place] % 8 % Normal -12 [facility] Comment on above: Performed By: #### 1 [id number], 8332325, 0776483, 1827528, 74319585, 0705143, 4020721 ####[facility] (DEFAULT)[address] [place] [address] Baso Abs# 0.0 x10 Normal 0.0-0.2 [facility] Comment on above: Performed By: #### 1 4392000, 0619272, 6697112, 5683993, 55596101, 8307627, 9350503 ####[facility] (DEFAULT)[address] [place] [address]29[address] Basophils/100 WBC (Bld) 0.6 % Normal 0.2-2.0 [facility] Comment on above: Performed By: #### 1 [id number], 5104086, 8211137, 9520143, 27948958, 0004046, 3491353 ####[facility] (DEFAULT)[address] [place] [address] Eos Abs# 0.1 x10 Normal 0.0-0.4 [facility] Comment on above: Performed By: #### 1 4609124, 5407189, 8747458, 0497144, 63702595, 8954609, 2125538 ####[facility] (DEFAULT)[address] [place] [address] Eosinophils/100 WBC (Bld) 1.8 % Normal 0.9-4.0 [facility] Comment on above: Performed By: #### 1 2666912, 4389304, 8564817, 0043396, 54100406, 1981985, 2244396 ####[facility] (DEFAULT)[address] [place] [address] Lymph Abs# 2.0 x10 Normal 1.3-2.9 [facility] Comment on above: Performed By: #### 1 4141665, 4400433, 0713484, 2007929, 15317385, 4477960, 0956441 ####[facility] (DEFAULT)[address] [place] [address] Lymphocytes/100 WBC (Bld) 37 % Normal 14-48 [facility] Comment on above: Performed By: #### 1 6809517, 9621905, 9616788, 0993614, 20428033, 1010980, 6550673 ####[facility] (DEFAULT)[address] [place] [address] [place] Abs# 0.4 x10 Normal 0.0-0.8 [facility] Comment on above: Performed By: #### 1 8530843, 9225251, 7414240, 1369107, 12447018, 9770998, 1059742 ####[facility] (DEFAULT)[address] [place] [address] Neut Abs# 3.0 x10 Normal 1.5-9.2 [facility] Comment on above: Performed By: #### 1 2637849, 9589097, 7261399, 0112353, 38896921, 4301043, 1199406 ####[facility] (DEFAULT)[address] [place] [address] Neutrophils/100 WBC (Bld) 53 % Normal 44-88 [facility] Comment on above: Performed By: #### 1 9008997, 3231698, 1137507, 7894624, 11543890, 9037566, 2011072 ####[facility] (DEFAULT)[address] [place] [address] CBC w/ Auto Diffon 3 Erythrocyte distribution width (RBC) [Ratio] 13.0 % Normal 11.5-15.0 [facility] Comment on above: Performed By: #### 1 3946043, 7437221, 1487443, 0172180, 18407754, 1592824, 3276281 ####[facility] (DEFAULT)[address] [place] [address] Hematocrit (Bld) [Volume fraction] 39.5 % Normal 33.7-40.4 [facility] Comment on above: Performed By: #### 1 1935844, 2109872, 2757522, 9460882, 05293270, 2458780, 9395695 ####[facility] (DEFAULT)[address] [place] [address] Hemoglobin (Bld) [Mass/Vol] 13.4 g/dL Normal 11.3-15.9 [facility] Comment on above: Performed By: #### 1 3580000, 6960313, 1176553, 7704512, 19900770, 9327636, 9753399 ####[facility] (DEFAULT)[address] [place] [address] Man Diff? Auto Invalid Interpretation Code [facility] Comment on above: Performed By: #### 1 8750610, 4177436, 3640355, 7890236, 71459395, 7312627, 7971898 ####[facility] (DEFAULT)[address] [place] [address] MCH (RBC) [Entitic mass] 32 pg Normal 24-34 [facility] Comment on above: Performed By: #### 1 4281689, 0955096, 5482416, 0794043, 24808161, 8455535, 5514278 ####[facility] (DEFAULT)[address] [place] [address]50 MCHC (RBC) [Mass/Vol] 34 g/dL Normal 26-37 [facility] Comment on above: Performed By: #### 1 2420731, 5731273, 5534323, 0437992, 71620509, 6561030, 1893389 ####[facility] (DEFAULT)[address] [place] [address] MCV (RBC) [Entitic vol] 95 fL Normal 81-100 [facility] Comment on above: Performed By: #### 1 0623143, 2569782, 7432220, 0030142, 07809372, 3714052, 9210889 ####[facility] (DEFAULT)[address] [place] [address] Platelet 252 x10 Normal 138-427 [facility] Comment on above: Performed By: #### 1 9621280, 3970971, 8830056, 3951444, 97118593, 4854988, 2360992 ####[facility] (DEFAULT)[address] [place] [address] Platelet mean volume (Bld) [Entitic vol] 7.5 fL Normal 6.3-10.2 [facility] Comment on above: Performed By: #### 1 0393757, 7995859, 2939874, 3738859, 51771164, 7920821, 2645513 ####[facility] (DEFAULT)[address] [place] [address] 16339 RBC 4.18 x10 Normal 3.70-5.30 [facility] Comment on above: Performed By: #### 1 7581272, 8939084, 0848242, 9325030, 23292594, 2078448, 2420650 ####[facility] (DEFAULT)[address] [place] [address]2462 WBC 5.6 x10 Normal 3.5-10.5 [facility] Comment on above: Performed By: #### 1 2197440, 6936900, 8863645, 6105132, 83230215, 7544412, 8755753 ####[facility] (DEFAULT)[address] [place] [address] ED Clinical Summaryon 2022 ED Clinical Summary [facility] ? 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 01/31/2023 17:34:23 Zac PADeuce ED PA 01/31/2023 17:36:10 VITALS INFORMATION Vital Sign Triage Latest Temperature Tympanic Temperature Temporal Artery Pulse Rate O2 Sat 96 % 96 % Respiratory Rate Blood Pressure /78 mmHg /78 mmHg MEDICAL INFORMATION Medications Given: Allergy Information: LORazepam; Amoxil PHYSICIAN DOCUMENTATION DISCHARGE INFORMATION: Discharge Disposition: Home Discharge Location: Home PATIENT EDUCATION INFORMATION Instructions: Sinusitis, Adult, Bwgd-lt-Ayec; Otitis Media, Pediatric, Onkz-ld-Knyi Follow-Up: With: Address: When: Luis Alfredo Grande [address] [place] [address], [address] [place] [address] Business (1) Comments: Azithromycin as [...] verbalizes understanding of instructions given Comment: Normal [facility] ED Patient Summaryon 023 ED Patient Summary [facility] ? Urgent Care [address] [place] [address] PATIENT DISCHARGE INSTRUCTIONS Patient Information Name: CHANTELLE PINTO Age: 68 Years Date of : 1955 Reason For Visit: UC - Sinus Pain or Congestion; UC - Sinus Pain or Congestion; SINUS DRAINAGE, CONGESTION Arrival Time: 01/31/2023 17:31:19 Primary Care Physician: Luis Alfredo Grande Attending Physician: Deuce Hernandez Comment: Patient Education With: Address: When: Luis Alfredo Grande [address] [place] [address], [address] [place] [address] Business (1) Comments: Azithromycin as [...] home: Medicines ? Take, use, or apply pxov-ozs-lbxjdzd and prescription medicines only as told by [...] is no soap and water, use hand supervisor alteration workroom. ? Do not smoke. Avoid being around people who are smoking (secondhand smoke). ? Keep all follow-up visits as told by your doctor. This is important. Contact a doctor if: ? You have a fever. ? Your sym (more content not included)... Normal [facility] Ferritinon 01-31-2023 Ferritin [Mass/Vol] 33.1 ng/mL Normal 12.0-150.0 [facility] Comment on above: Performed By: #### 1 4929957, 7376996, 1719788, 5533623, 49423426, 4766604, 5139833 ####[facility] (DEFAULT)[address] [place] [address] Iron Profileon 01-31-2023 Iron [Mass/Vol] 107.0 ug/dL Normal 28.0-170.0 [facility] Comment on above: Performed By: #### 1 6054613, 1621829, 8551769, 4789022, 32122561, 6494149, 3172239 ####[facility] (DEFAULT)[address] [place] [address] Iron Sat 30 % Normal 20-55 [facility] Comment on above: Performed By: #### 1 [id number], 1970458, 5670608, 1621990, 22815742, 2872103, 5474160 ####[facility] (DEFAULT)[address] [place] [address] TIBC 353 mcg/dL Normal 250-400 [facility] Comment on above: Performed By: #### 1 [id number], 5612656, 3266914, 7335229, 34381091, 0610643, 3112475 ####[facility] (DEFAULT)[address] [place] [address] Transferrin [Mass/Vol] 252.1 mg/dL Normal 192.0-382.0 [facility] Comment on above: Performed By: #### 1 [id number], 6863481, 3440947, 7579122, 94049592, 2438643, 2750004 ####[facility] (DEFAULT)[address] [place] [address] TSHon 01-31-2023 TSH Qn 2.38 m[IU]/L Normal 0.45-5.33 [facility] Comment on above: Performed By: #### 1 [id number], 9729550, 4235352, 9513568, 36019450, 7932561, 0737223 ####[facility] (DEFAULT)[address] [place] [address] UA Kxdky9fr 01-31-2023 UA Bacteria 2+ [facility] Comment on above: Order Comment: Urina lysis Microscopic order added on by [employer] Rules system. Performed By: #### 6 815686, [id number], [id number] ####[facility] (DEFAULT)[address] [place] [address] UA RBC 3-[address] [facility] Comment on above: Order Comment: Urina lysis Microscopic order added on by [employer] Rules system. Performed By: #### 6 505966, [id number], [id number] ####[facility] (DEFAULT)[address] [place] [address] UA Squam Epi Many [facility] Comment on above: Order Comment: Urina lysis Microscopic order added on by [employer] Rules system. Performed By: #### 6 954110, [id number], [id number] ####[facility] (DEFAULT)[address] [place] [address] UA WBC 5-[address] [facility] Comment on above: Order Comment: Urina lysis Microscopic order added on by [employer] Rules system. Performed By: #### 6 297744, [id number], [id number] ####[facility] (DEFAULT)[address] [place] [address] UA Yeast Rare [facility] Comment on above: Order Comment: Urina lysis Microscopic order added on by [employer] Rules system. Performed By: #### 6 115338, [id number], [id number] ####[facility] (DEFAULT)[address] [place] [address] UA w Culture if Ind Standard on 01-31-2023 Breakpoint UA [facility] Comment on above: Performed By: #### 6 473571, [id number], [id number] ####[facility] (DEFAULT)[address] [place] [address] Color (U) Yellow [facility] Comment on above: Performed By: #### 6 703792, [id number], [id number] ####[facility] (DEFAULT)[address] [place] [address] Culture? Indicated Invalid Interpretation Code [facility] Comment on above: Result Comment: Resu lt created by rule GL_MAGR_ADD_UA_CULT Result created by rule GL_MAGR_ADD_UA_CULT Result created by rule GL_MAGR_ADD_UA_CULT1 Result created by rule GL_MAGR_ADD_UA_CULT Performed By: #### 6 615131, [id number], [id number] ####[facility] (DEFAULT)[address] [place] [address] Glucose (U) [Mass/Vol] Negative [facility] Comment on above: Performed By: #### 6 634320, [id number], 10164705 ####[facility] (DEFAULT)[address] [place] [address] Ketones Ql (U) Negative [facility] Comment on above: Performed By: #### 6 248497, [id number], [id number] ####[facility] (DEFAULT)[address] [place] [address] Micro? Indicated Invalid Interpretation Code [facility] Comment on above: Result Comment: Resu lt created by rule GL_MAGR_ADD_UA_MICRO Performed By: #### 6 361728, [id number], [id number] ####[facility] (DEFAULT)[address] [place] [address] UA Bilirubin Negative Normal [facility] Comment on above: Performed By: #### 6 557800, [id number], 51232076 ####[facility] (DEFAULT)[address] [place] [address] UA Blood SMALL Abnormal NEGATIVE [facility] Comment on above: Performed By: #### 6 462800, [id number], [id number] ####[facility] (DEFAULT)[address] [place] [address] UA Clarity CLOUDY Abnormal CLEAR [facility] Comment on above: Performed By: #### 6 048358, [id number], [id number] ####[facility] (DEFAULT)[address] [place] [address] UA Leuk Est TRACE Abnormal NEGATIVE [facility] Comment on above: Performed By: #### 6 785313, [id number], [id number] ####[facility] (DEFAULT)[address] [place] [address] UA Nitrite Negative Normal [facility] Comment on above: Performed By: #### 6 002099, [id number], [id number] ####[facility] (DEFAULT)[address] [place] [address] UA pH 6.0 Normal 5-8 [facility] Comment on above: Performed By: #### 6 400260, [id number], 33891704 ####[facility] (DEFAULT)[address] [place] [address] UA Protein Negative Normal [facility] Comment on above: Performed By: #### 6 663212, [id number], 82656006 ####[facility] (DEFAULT)[address] [place] [address] UA Spec Grav 1.025 Normal 1.001-1.035 [facility] Comment on above: Performed By: #### 6 133099, [id number], 50744574 ####[facility] (DEFAULT)[address] [place] [address] UA Urobilinogen 0.2 mg/dL Normal 0.2-1.0 [facility] Comment on above: Performed By: #### 6 678114, [id number], [id number] ####[facility] (DEFAULT)[address] [place] [address] Urine Source Clean Catch Normal [facility] Comment on above: Performed By: #### 6 122516, [id number], [id number] ####[facility] (DEFAULT)[address] [place] [address] Urgent Care Note- Provideron 01-31-2023 Urgent Care [...] Impression and Plan Diagnosis Right otitis media (KOT84-PI H66.91, Discharge, Medical) Sinus congestion (NLF44-SW R09.81, Discharge, Medical) Plan Prescriptions: Launch prescriptions Pharmacy: !-Nasacort AQ 55 mcg/inh nasal spray (Prescribe): 1 spray(s), Nasal, Daily, 16.5 gm, 0 Refill(s) azithromycin 250 mg oral tablet (Prescribe): See Instructions, Take 2 tabs day 1, one tab daily thereafter., 6 tab(s), 0 Refill(s). Patient was given the following educational materials: Otitis Media, Pediatric, Yyig-rj-Wtow, Sinusitis, Adult, Rbtz-dn-Ague. Follow up with: Luis Alfredo Grande Azithromycin [...] [Verified on: 01/31/2023 18:34 EST] Deuce Hernandez [facility] [address] 023 Urgent Care Record [facility] ? Urgent Care [address] [place] [address] PATIENT DISCHARGE INSTRUCTIONS Patient Information Name: CHANTELLE [...] (R09.81) UC - Sinus Pain or Congestion ([id number]) UC - Sinus Pain or Congestion ([id number]) If you received any narcotics, sedation, or [...] sign any legal documents With: Address: When: [address], [address] [place] [address] Business (1) Comments: Azithromycin as an antibiotic to 2 tabs day 1, then 1 tab daily thereafter until gone Nasacort nasal spray has been provided for you use 1 spray each nostril daily Follow-up with primary care provider in 3-5 days sooner if worse. Medication Information: [facility] [facility] were for an urgent problem and are not intended as complete care. It is important for you to follow up with a doctor, nurse practitioner, or physician?s assistant prosecuting attorney for ongoing care. If your symptoms become [...] so we can reach you if necessary. [facility] Urgent [facility] has provided you with a complete list of medications post discharge. Please inform your memory care program director/provider of your visit and for further instruction on these medications. Any specific questions regarding your chronic medications and dosages should be discussed with your primary care physician(s) and/or pharmacist. New Medications [facility] [id number] [place], [place] [id number], [phone] azithromycin (azithromycin 250 mg oral tablet) Take [...] sinuses. S (more content not included)... Normal [facility] Vit B12 Lvlon 01-31-2023 Vit B12 1205 High 180-914 [facility] Comment on above: Performed By: #### 1 [id number], [id number], [id number], [id number], [id number], [id number] ####[facility] (DEFAULT)[address] [place] [address] Vit D25 OHon 01-31-2023 Vitamin D 25 OH 54 ng/mL Invalid Interpretation Code [facility] Comment on above: Performed By: #### 1 [id number], [id number], [id number], [id number], [id number], [id number] ####[facility] (DEFAULT)[address] [place] [address] Diagnostic Mammogram, Unilat eral Left w/Jose (3D)on [...] VERY IMPORTANT TO YOUR HEALTH. THE CURRENT [employer] GUIDELINES RECOMMENDS ANNUAL MAMMOGRAPHY BEGINNING AT AGE 41 THIS FACILITY USES A REMINDER SYSTEM TO ENSURE ALL PATIENTS RECEIVE REMINDER NOTIFICATIONS AT THE APPROPRIATE TIME BASED ON THE RECOMMENDATIONS OF THIS EXAM. Board Certified Radiologist. Accredited by the ACR and FDA. Report reported and signed by Isaiah Tatum on 08/20/20221511 Normal [facility] Mental Health Nurse Practitioner US Breast Limited, Lefton US Breast Limited, Left Refer to concurrent diagnostic mammogram dictation. Report reported and signed by Isaiah Ttaum on 08/20/2022 151 Normal [facility] Mental Health Nurse Practitioner NM vito perf SPECT rest stron 08-09-2022 NM vito perf SPECT rest str [facility] [place] [address] Nuclear Medicine Report Signed Patient: Chantelle Pinto MR#: [id number] : 1955 Acct:[id number] Age/Sex: 67 / F ADM Date: 08/08/22 [...] 08/09/22 1202 Signed By: 08/09/22 1302 Normal [facility] STR cardiac stress/cardiolon 08-09-2022 STR cardiac stress/cardiol [facility] [place] [place] [address] Cardiac Stress Test Signed Patient: Chantelle Pinto MR#: [id number] : 1955 Acct:[id number] Age/Sex: 67 / F ADM Date: 08/08/22 [...] MD 08/09/22 1208 Signed By: 08/09/22 1302 Normal [facility] SCREENING MAMMOGRAM W/JOSE, BILATERAL*on 08-07-2022 SCREENING [...] VERY IMPORTANT TO YOUR HEALTH. THE CURRENT [employer] GUIDELINES RECOMMEND ANNUAL MAMMOGRAPHY BEGINNING AT AGE 41. THIS FACILITY UTILIZES A REMINDER SYSTEM TO ENSURE ALL PATIENTS RECEIVE A REMINDER NOTIFICATION AT THE APPROPRIATE TIME BASED ON THE RECOMMENDATIONS OF THIS EXAM. BOARD CERTIFIED RADIOLOGIST. ACCREDITED BY THE [facility] AND FDA. Report reported and signed by Kika Cooney on 08/07/2022 1356 Normal [facility] Mental Health Nurse Practitioner Comprehensive Metabolic Pane wyatt 03-06-2022 Albumin [Mass/Vol] 4.4 g/dL Normal 3.6-5.1 [facility] Nurse Practitioner Comment on above: Performed By: #### C ERIKA LIPD #### [facility] [address] [id number] Albumin/Globulin [Mass ratio] 1.7 {ratio} Normal 1.0-2.5 [facility] Specialist Comment on above: Performed By: #### C ERIKA, LIPD #### [facility] [address] [place], [place] [id number] ALP [Catalytic activity/Vol] 125 U/L High 35-119 [facility] Specialist Comment on above: Performed By: #### C ERIKA LIPD #### [facility] [address] [place], [place] [id number] ALT [Catalytic activity/Vol] 27 U/L Normal 6-33 [facility] Specialist Comment on above: Result Comment: 11/01 Female reference range changed. Performed By: #### C ERIKA LIPD #### [facility] [address] [facility] [place] [id number] Anion gap [Moles/Vol] 19 mmol/L Normal 12-20 [facility] Mental Health Nurse Practitioner Comment on above: Result Comment: Effe ctive 12/07/2019 reference range changed. Performed By: #### C ERIKA LIPD #### [facility] [address] [facility] [place] [id number] AST [Catalytic activity/Vol] 27 U/L Normal 9-34 [facility] Specialist Comment on above: Performed By: #### C ERIKA LIPD #### [facility] [address] [facility] [id number] Bilirubin [Mass/Vol] 0.37 mg/dL Normal 0.30-1.20 [facility] Specialist Comment on above: Performed By: #### C ERIKA LIPD #### [facility] [address] [place], [place] [id number] BUN/CREA 28 Ratio High 6-22 [facility] Specialist Comment on above: Performed By: #### C ERIKA LIPD #### [facility] [address] [place], [place] [id number] Calcium [Mass/Vol] 9.4 mg/dL Normal 8.6-10.2 [facility] Specialist Comment on above: Performed By: #### C DIAZ JAMES #### [facility] [address] [place], [place] [id number] Chloride [Moles/Vol] 102 mmol/L Normal 98-107 [facility] Specialist Comment on above: Performed By: #### C DIAZ JAMES #### [facility] [address] [place], [place] [id number] CO2 [Moles/Vol] 22 mmol/L Normal 20-31 [facility] Specialist Comment on above: Performed By: #### C DIAZ JAMES #### [facility] [address] [place], [place] [id number] Creatinine [Mass/Vol] 0.5 mg/dL Low 0.6-1.4 [facility] Specialist Comment on above: Performed By: #### C DIAZ JAMES #### [facility] [address] [place], [place] [id number] eGFRAA 140 mL/min/1.73m2 Normal >60 [facility] Specialist Comment on above: Performed By: #### C DIAZ JAMES #### [facility] [address] [place], [place] [id number] eGFRNAA 115 mL/min/1.73m2 Normal >60 [facility] Specialist Comment on above: Performed By: #### C DIAZ JAMES #### [facility] [address] [place], [place] [id number] Globulin (S) [Mass/Vol] 2.6 g/dL Normal 1.9-3.7 [facility] Specialist Comment on above: Performed By: #### C DIZA JAMES #### [facility] [address] [place], [place] [id number] Glucose [Mass/Vol] 170 mg/dL High 65-99 [facility] Specialist Comment on above: Result Comment: For FASTING Glucose --- ADA reference ranges: Normal 65-99 mg/dl Prediabetes 100-125 Diabetes >/= 126 Performed By: #### C DIAZ JAMES #### [facility] [address] [place], [place] [id number] Potassium [Moles/Vol] 4.7 mmol/L Normal 3.5-5.5 [facility] Specialist Comment on above: Performed By: #### C ERIKA LIPD #### [facility] [address] [place], [place] [id number] Protein [Mass/Vol] 7.0 g/dL Normal 6.1-8.1 [facility] Specialist Comment on above: Performed By: #### C ERIKA LIPD #### [facility] [address] [place], [place] [id number] Sodium [Moles/Vol] 138 mmol/L Normal 135-146 [facility] Mental Health Nurse Practitioner Comment on above: Performed By: #### C ERIKA LIPD #### [facility] [address] [place], [place] [id number] Urea nitrogen [Mass/Vol] 15 mg/dL Normal 7-25 [facility] Mental Health Nurse Practitioner Comment on above: Performed By: #### C ERIKA LIPD #### [facility] [address] [place], [place] [id number] Hemoglobin A1Con 03-06-2022 EAG 177.16 Normal [facility] Specialist Comment on above: Performed By: #### A 1C #### [facility] [address] [place], [place] [id number] HbA1c (Bld) [Mass fraction] 7.8 % High 4.0-6.0 [facility] Mental Health Nurse Practitioner Comment on above: Performed By: #### A 1C #### [facility] [address] [place], [place] [id number] Lipid Panelon 03-06-2022 Cholesterol [Mass/Vol] 271 mg/dL High 125-200 [facility] Mental Health Nurse Practitioner Comment on above: Result Comment: Low risk < 200mg/dL Borderline risk 201-239 mg/dl High risk > or equal to 240 Performed By: #### C ERIKA LIPD #### [facility] [address] [place], [place] [id number] Cholesterol in HDL [Mass/Vol] 44 mg/dL Normal >40 [facility] Mental Health Nurse Practitioner Comment on above: Result Comment: High Cardiovascular Risk HDL <40 mg/dL Low Cardiovascular Risk HDL > or equal to 60 mg/dl Performed By: #### C ERIKA LIPD #### [facility] [address] [facility] [id number] Cholesterol in LDL [Mass/Vol] 184 mg/dL Normal [facility] Mental Health Nurse Practitioner Comment on above: Result Comment: LDL ATP III CLASSIFICATION LDL less than 100 mg/dl Optimal LDL 100-129 mg/dl Near or above optimal LDL 130-159 Borderline high LDL 160-189 High LDL greater than 189 mg/dl Very High Performed By: #### C MP, LIPD #### [facility] [address] [place], [place] [id number] Cholesterol in VLDL [Mass/Vol] 43 mg/dL Normal [facility] Specialist Comment on above: Performed By: #### C MP, LIPD #### [facility] [address] [place], [place] [id number] Cholesterol.total /Cholesterol in HDL [Mass ratio] 6 {ratio} Normal [facility] Specialist Comment on above: Performed By: #### C MP, LIPD #### [facility] [address] [place], [place] [id number] Triglyceride [Mass/Vol] 215 mg/dL High 30-150 [facility] Mental Health Nurse Practitioner Comment on above: Result Comment: TRIG ATPIII CLASSIFICATIONS TRIG less than 150 mg/dl Normal TRIG 150-199 mg/dl Borderline High TRIG 200-500 mg/dl High TRIG greather than 500 mg/dl Very High Performed By: #### C ERIKA, LIPD #### [facility] [address] [place], [place] [id number] Q - ALK PHOSPHATASE ISOENZYM ESon 03-06-2022 ALP [Catalytic activity/Vol] 117 U/L Normal 37-153 [facility] Special[facility] Comment on above: Order Comment: [facility] Testing performed at: [employer], [address], [place], [place], , Prototype Sewer: Jeffry Rosas M.D.,PhD [facility] Collection Date/Time: [facility] Results Received Date/Time: [facility] Reported Date/Time: Performed By: #### 2 31 #### [facility] [address] [place] [address] BONE ISOENZYMES 29 % Normal 28-66 [facility] Specialist Comment on above: Order Comment: [facility] performed at: [employer], [address], [place], [place], , Prototype Sewer: Jeffry Rosas M.D.,PhD [facility] Date/Time: [facility] Results Received Date/Time: [facility] Reported Date/Time: Performed By: #### 2 31 #### [facility] [address] [place] [address] INTESTINAL ISOENZYMES 0 % Low 1-24 [facility] Specialist Comment on above: Order Comment: [facility] Testing performed at: [facility] [email or web address], [address], [place], [place], , Prototype Sewer: Jeffry Rosas M.D.,PhD [facility] Collection Date/Time: [facility] Results Received Date/Time: [facility] Reported Date/Time: Performed By: #### 2 31 #### [facility] [address] [place] [address] LIVER ISOENZYMES 71 % High 25-69 [facility] Specialist Comment on above: Order Comment: [facility] performed at: [facility] [email or web address], [address], [place], [place], , Prototype Sewer: Jeffry Rosas M.D.,PhD [facility] Collection Date/Time: [facility] Results Received Date/Time: [facility] Reported Date/Time: Performed By: #### 2 31 #### [facility] [address] [place] [address] MACROHEPATIC ISOENZYMES 0 % Normal <=0 [facility] Specialist Comment on above: Order Comment: [facility] performed at: [facility], [address], [place], [place], , Prototype Sewer: Jeffry Rosas M.D.,PhD [facility] Collection Date/Time: [facility] Results Received Date/Time: [facility] Reported Date/Time: Performed By: #### 2 31 #### [facility] [address] [place] [address] PLACENTAL ISOENZYMES 0 % Normal <=0 [facility] Mental Health Nurse Practitioner Comment on above: Order Comment: [facility] performed at: [facility], [email or web address], [address], [place], [address], Prototype Sewer: Jeffry Rosas M.D.,PhD [facility] Date/Time: [facility] Results Received Date/Time: [facility] Reported Date/Time: Performed By: #### 2 31 #### [facility] [address] [place] [address] Vitamin B12on 03-06-2022 Cobalamin (Vitamin B12) [Mass/Vol] 947 pg/mL High 211-946 [facility] Mental Health Nurse Practitioner Comment on above: Performed By: #### B 12 #### [facility] [address] [place], [place] [id number] Encounters Encounter Date Encounter Type Care Provider Facility Start: 09-11-2024 End: 09-11-2024 Patient encounter procedure Luis Alfredo Grande MD Work Phone: [facility] Comment on above: Need for immunizatio n against influenza Start: 03-23-2024 End: 03-23-2024 ambulatory PRABHJOT WAGONER Not Available Start: 07-09-2023 End: 07-09-2023 ambulatory VIOLET MCNEILL Facility:[facility] Start: 06-06-2023 End: 06-07-2023 ambulatory JESSE CONRAD Facility:[facility] Start: 06-06-2023 End: 06-06-2023 Patient encounter procedure JESSE CONRAD [facility] Start: 01-31-2023 End: 01-31-2023 ambulatory Luis Alfredo Grande Facility:[facility] Start: 01-31-2023 End: 02-01-2023 ambulatory Luis Alfredo Grande Facility:[facility] Start: 08-08-2022 ambulatory Alvaro Dickinson [id number] Start: 08-08-2022 End: 08-08-2022 ambulatory Glenroy Benson Facility:[facility] Start: 08-08-2022 End: 08-08-2022 Patient encounter procedure MD Luis Alfredo Grande Work Phone: [facility] [address] [place] Start: 03-04-2019 End: 07-18-2019 Patient encounter procedure POLY SANTIZO Facility:[facility] Procedures Date Procedure Procedure Detail Performing Clinician Start: 11-06-2023 Mammography Luis Alfredo short MD Work Phone: Start: 05-21-2018 Colonoscopy Luis Alfredo short MD Work Phone: Plan of Treatment Date Care Activity Detail Author Start: 05-21-2028 Screening for malignant neoplasm of colon [facility] Start: 03-19-2025 Glaucoma screening Diabetes: Retinopathy Screening [facility] Start: 11-06-2024 Screening for malignant neoplasm of breast Mammogram [facility] Start: 07-11-2023 Urine screening for protein Diabetes: Urine Protein Screening [facility] Start: 12-03-2022 Pneumococcal Vaccine: 65+ Years (2 of 2 - PPSV23 or PCV20) Pneumococcal Vaccine: 65+ Years (2 of 2 - PPSV23 or PCV20) [facility] Start: 10-11-2022 Hemoglobin A1c measurement Diabetes: Hemoglobin A1C [facility] Start: 08-08-2022 Radionuclide myocardial perfusion stress study NM vito perf SPECT rest & str [facility] Start: 08-08-2022 SPECT Heart perfusion at rest and W stress and W radionuclide IV [facility] Work Phone: Start: 07-14-2021 Medicare Annual Wellness (AWV) Medicare Annual Wellness (AWV) [facility] Start: 1955 Screening for malignant neoplasm of colon [facility] Immunizations Immunization Date Immunization Notes Care Provider Fa cili 09-11-2024 Seasonal trivalent influenza vaccine, adjuvanted, preservative free Luis Alfredo Grande MD Work Phone: [facility] 08-30-2023 Influenza, Seasonal, Quadrivalent, Adjuvanted Luis Alfredo Grande MD Work Phone: [facility] 07-09-2023 tetanus and diphther ia toxoids, adsorbed, preservative free, for adult use (2 Lf of tetanus toxoid and 2 Lf of diphtheria toxoid) Luis Alfredo Grande MD Work Phone: [facility] 07-09-2023 tetanus and diphther ia toxoids, adsorbed, preservative free, for adult use (5 Lf of tetanus toxoid and 2 Lf of diphtheria toxoid) Luis Alfredo Grande MD Work Phone: [facility] 10-08-2022 pneumococcal conjuga te vaccine, 13 valent Luis Alfredo Grande MD Work Phone: [facility] 09-07-2022 influenza, high dose seasonal, preservative-free Luis Alfredo Grande MD Work Phone: [facility] 03-05-2022 influenza, injectabl e, quadrivalent, preservative free Luis Alfredo Grande MD Work Phone: [facility] 09-22-2021 Influenza, Seasonal, Quadrivalent, Adjuvanted Luis Alfredo Grande MD Work Phone: [facility] 11-20-2010 hepatitis B vaccine, pediatric or pediatric/adolescent dosage Luis Alfredo Grande MD Work Phone: [facility] 06-21-2010 hepatitis B vaccine, pediatric or pediatric/adolescent dosage Luis Alfredo Grande MD Work Phone: [facility] 05-22-2010 hepatitis B vaccine, pediatric or pediatric/adolescent dosage Luis Alfredo Grande MD Work Phone: [facility] 05-03-2010 tetanus toxoid, redu cyndi diphtheria toxoid, and acellular pertussis vaccine, adsorbed Luis Alfredo Grande MD Work Phone: [facility] Payers Date Payer Category Payer Medicare [facility] MEDIC[facility] ADV[facility]AGE [id number] 2023-Present [phone] [address] [place] [address] [id number] 2022 Medicare [id number] 1958 Self-pay 1955 Unknown [id number] 1955 Unknown [id number] 1955 Unknown [id number] 1955 Unknown [id number] 1955 Unknown [id number] 1955 Unknown [id number] 1955 Unknown [id number] 9 Unknown [place] BC/BS XI [id number] Unknown [place] XI [id number] Unknown Regular Auto/Medical [id number] Unknown [id number] Social History Date Type Detail Facility Start: 02-10-2020 End: 07-17-2023 Tobacco smoking status NHIS Never smoked tobacco (finding) [facility] Start: 1955 Sex Assigned At Female F [facility] Tobacco smoking status No Smokin g Status Entered [facility] Start: 07-17-2023 End: 03-23-2024 Sex Assigned At Female [facility] Start: 07-17-2023 Tobacco use and exposure Smokeless tobacco non-user [facility] Start: 03-23-2024 Alcoholic beverage intake Current drinker of alcohol (finding) [facility] Start: 07-17-2023 End: 03-23-2024 History of Social function [facility] Start: 07-17-2023 Alcohol Comment 1-2 drinks les s than monthly. caffeine: coffee 1-2 cups a day [facility] Start: 1955 Sex assigned at Not on file N [facility] Medical Equipment Procedure Code Equipment Code Equipment Origin al Text Equipment Identifier Dates 1 each by Other route if needed. Start: 05-22-2023 History of Present illness Narrative 09-11-2024 Ashley Mendoza, [employer] - 09/11/2024 1:00 PM EDT Note Date & Type Note Facility 09-11-2024 History of Presen t illness Narrative Chantelle Pinto is a 69 y.o. female presents with chief complaint of Flu Vaccine HPI: Patient here for annual flu vaccine. History of Present Illness I have reviewed and reconciled the history and medication list with the patient today. 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 Quan Parker HYSTERECTOMY 2004 NASAL FRACTURE SURGERY FL KNEE SCOPE,DIAGNOSTIC Right 01/2020 Dr. Siddiqi SCLEROTHERAPY 10/2015 w/ US to bilateral lower extremities; by Dr. Poly Suarez,DO TONSILLECTOMY SOCIAL HISTORY: Social History Tobacco Use Smoking status: Never Smokeless tobacco: Never Vaping Use Vaping status: Never Used Substance Use Topics Alcohol use: Yes Comment: 1-2 drinks less than monthly. caffeine: coffee 1-2 cups a day Drug use: Never Depression: Not at risk (07/17/2023) PHQ-2 PHQ-2 Score: 0 FAMILY HISTORY: Family History Problem Relation Name Age of Onset Asthma Mother Diabetes Mother Heart disease Mother Asthma Father Diabetes Father Cancer Sister Cancer Mother's Brother No Known Problems Daughter MEDICATIONS: Current Outpatient Medications Medication Instructions acetaminophen (TYLENOL 8 HOUR) 650 mg, Oral, Every 8 hours PRN B-D 3CC LUER-SHIMA SYR 25GX1 25G X 1 3 ML misc USE 1 SYRINGE ONCE EVERY MONTH biotin 5 mg, Oral, Daily clobetasol (Temovate) 0.05 % external solution Topical, Daily cyanocobalamin (VITAMIN B-12) 1,000 mcg, Intramuscular, Every 30 days EpiPen 2-Joce 0.3 mg, Injection, Once ergocalciferol (VITAMIN D-2) 1.25 mg, Oral, Weekly estradiol (ESTRACE) 0.5 g, Vaginal, Weekly FREESTYLE LITE test strip 1 each, Other, As needed meclizine (ANTIVERT) 25 mg, Oral, 3 times daily PRN metFORMIN (GLUCOPHAGE) 500 mg, Oral, Daily with breakfast ofloxacin (Floxin) 0.3 % otic solution Daily omega-3 (FISH OIL) 1,000 mg, Oral, Daily rosuvastatin (CRESTOR) 10 mg, Oral, Daily Trulicity 0.75 mg, Subcutaneous, Weekly Ubrelvy 100 mg, Oral, As needed ALLERGIES: Allergies Allergen Reactions [place] Oil Unknown Meclizine Unknown Amoxicillin GI intolerance and Nausea Only Lorazepam Other Reaction(s): Dizziness Tomato Rash Wheat Other Reaction(s): Unknown PHYSICAL EXAM: Visit Vitals Smoking Status Never BP Readings from Last 3 Encounters: 03/23/24 120/70 07/17/23 118/80 08/07/22 120/80 Wt Readings from Last 3 Encounters: 03/23/24 134 lb 07/17/23 136 lb 3.2 oz 08/07/22 139 lb Physical Exam Results ASSESSMENT AND PLAN: Assessment & Plan documented in this encounter [facility] Clinical Note 07-09-2023 Note Date & Type [...] wine (148 mL (more content not included)... [facility] Clinical Note 01-31-2023 Note Date & Type [...] home: Medicines ? Take, use, or apply lyxg-enp-omdbfsp and prescription medicines only as told by [...] is no soap and water, use hand supervisor alteration workroom. ? Do not smoke. Avoid being around [...] to replace a (more content not included)... [facility] Evaluation + Plan note Note Date & Type Note Facility Evaluation + Plan note No data available for this section [facility] Evaluation note Note Date & Type Note Facility Evaluation note No assessment information availa [facility] Work Phone: Evaluation note Note Date & Type Note Facility Evaluation note Diagnosis Need for immunization against influenza Need for prophylactic vaccination and inoculation against influenza documented in this encounter [facility] Hospital Discharge instructions Note Date & Type Note Facility Hospital Discharge instructions No data available for this section [facility] Progress note Note Date & Type Note Facility Progress note No data available for this section [facility] Summary Purpose Family History Relationship Condition Age at Onset Recorded Date/T nita father Diabetes mellitus Unknown Glaucoma Unknown Not Specified Recurrent cerebrovas cular accidents (CVAs) Unknown Diabetes mellitus Unknown Family history of co ronary artery bypass surgery Unknown sister Malignant neoplasm Unknown sister Gout Unknown Lupus Unknown Advance Directives Advance Directive Response Recorded Date/ Time Advance Directives No February 17, 018 12:09pm Chief Complaint and Reason for Visit Chief Complaint R07.9 Additional Source Comments INFORMATION SOURCE (unrecogn ized section and content) DATE CREATED AUTHOR 07/18/2019 [facility] DATE CREATED AUTHOR AUTHOR'S ORGANIZ ATION 09/02/2022 [facility] Specialist DATE CREATED AUTHOR AUTHOR'S ORGANIZ ATION 01/05/2023 [facility] DATE CREATED AUTHOR AUTHOR'S ORGANIZ ATION 03/30/2023 [facility] DATE CREATED AUTHOR AUTHOR'S ORGANIZ ATION 06/07/2023 Bala Gilmer [facility] DATE CREATED AUTHOR AUTHOR'S ORGANIZ ATION 07/20/2023 [facility] DATE CREATED AUTHOR AUTHOR'S ORGANIZ ATION 03/23/2024 [facility] Specialists EPIC Care Teams (unrecognized sec tion and content) Team Status: Inactive Member Role Status Dates Luis Alfredo Grande MD Primary Care Provider, Attending Prov ider Active W Reese Benson DO Referring Provider Active Team Status: Active Member Role Status Dates Luis Alfredo Grande MD Primary Care Provider Active Front End Mechanic Relationship Specialty Start Date End Date Luis Alfredo Grande MD [address] [place] [address] PCP - General Internal Medicine 04/09/23 Prabhjot Wagoner MD [address] [place] [address] Referring Physician Neurology 07/16/23 Candy Herrera, [employer] [address] [place] [address] Nurse Practitioner Neurology 07/16/23 Chris Mckoy MD [facility] [place] [address] Consulting Physician Ophthalmology 07/17/23 Crissy Link MD [address] [place] [address] Consulting Physician Dermatology 07/17/23 Cabrera Palafox MD [address] [place] [address] [place] [address] Consulting Physician Orthopaedic Surgery 07/17/23 Jesse Conrad MD [address] [place] [id number] Consulting Physician Gerontology 07/17/23 Goals (unrecognized section and content) Goals may be documented in a n alternate section No data available for this section Reason for Visit (unrecogniz ed section and content) Reason Comments Flu Vaccine FOR RECORDS PERTAINING TO PATIENTS WHO ARE [...] BE BASED ON THE PRIMARY CLINICAL RECORDS. [facility] [employer] [facility]. provides no warranty or guarantee of the accuracy or completeness of information in this document.
--- NOTE | 2024-09-18 13:44 | W.VEIN ---
Discharge Plan Discharge Disposition: Home, Self-Care Outpatient Diagnostics: VC Endovenous Ablation 1VeinRT (Routine) Timeframe: 6 Months Facility: [facility] - Location: [facility] Ordered By: Edson Conner Plan of Treatment: EVLT of right AASV EVLT Tumescent Anesthesia: 500 mL 0.9% NS with 20 mL 1% Lidocaine and 10 mL 8.4% NAHCO3 Buffered Local Anesthesia: 10 mL of 1% Lidocaine Buffered Print Language: Haitian Discharge Date/Time: 09/18/24 13:45
== END 2024-09-18 13:45 | disposition home or self-care (01) ==
PROVIDERS: PCP Radiology Diagnostic Radiology; Visit Provider Radiology Diagnostic Radiology
DX: I80.02 Phlebitis and thrombophlebitis of superficial vessels of left lower extremity (principal)
CPT/HCPCS: 93971; G0463